=== PATIENT | male | born 1970 | race Caucasian/White ===

== ENCOUNTER 2022-01-06 22:53 | Inpatient (IN) | payer OTHER ==
--- NOTE | 2022-01-06 23:30 | ED ---
SOB HPI - General Chief Complaint: Shortness of Breath Stated Complaint: SOFÍA Time Seen by Provider: 01/06/22 22:59 Source: patient, EMS Mode of arrival: EMS - History of Present Illness Initial Comments: Patient is a 51-year-old male who presents as a transfer from [facility]. He was transferred for shortness of breath. Patient is paraplegic and currently on meropenem for a right hip wound. He had a skin flap performed to the left hip at [facility] one month ago. He developed a DVT postop and is now on Eliquis. He had a midline which he pulled out 2 days ago. He went into [facility] to have it replaced. Family reported that the patient has developed a cough starting yesterday and 2 hours prior to hospital arrival he was extremely short of breath. Family placed him on his CPAP which didn't help. EMS found the patient saturing 80% and he was placed on Bipap. He went into [facility] and had full evaluation. He was found to be Covid positive. CT of the chest was performed which was negative for PE however there were bilateral groundglass opacities. Patient does not wear oxygen at baseline but wears CPAP at night. He was able to be titrated down to and OptiFlow. Patient presents from [facility] without signs of respiratory distress on a nonrebreather saturating 97%. He denies any chest pain. Does admit to cough. Patient was given Decadron 6 mg, doxycycline and his meropenem. He denies fevers, chills, headache, neck pain, nausea, vomiting. No other alleviating, precipitating or modifying factors - Related Data Home Medications Medication Instructions Recorded Confirmed Alendronate Sodium 70 mg PO SA 01/07/22 01/07/22 Apixaban [Eliquis] 5 mg PO BID 01/07/22 01/07/22 Ascorbic Acid [Vitamin C] 250 mg PO DAILY 01/07/22 01/07/22 Atorvastatin [Lipitor] 80 mg PO HS 01/07/22 01/07/22 Baclofen 10 - 20 mg PO QID PRN 01/07/22 01/07/22 Cholecalciferol (Vitamin D3) 125 mcg PO DAILY 01/07/22 01/07/22 [Vitamin D3 (125 MCG = 5,000 IU)] Co Q-10 30mg 1 cap PO DAILY 01/07/22 01/07/22 Docusate [Colace] 100 mg PO BID 01/07/22 01/07/22 Ferrous Sulfate [Feosol] 325 mg PO DAILY 01/07/22 01/07/22 Fluconazole [Diflucan] 200 mg PO DAILY 01/07/22 01/07/22 Gabapentin 600 mg PO TID 01/07/22 01/07/22 Insulin Glargine,Hum.rec.anlog 8 units SQ HS 01/07/22 01/07/22 [Lantus Solostar Pen] Meloxicam [Mobic] 15 mg PO DAILY 01/07/22 01/07/22 Meropenem [Merrem] 1 gm IV TID 01/07/22 01/07/22 Metaxalone [Skelaxin] 400 mg PO BID 01/07/22 01/07/22 Multivitamins, Thera [Multivitamin 1 tab PO DAILY 01/07/22 01/07/22 (formulary)] Pantoprazole [Protonix] 40 mg PO BID 01/07/22 01/07/22 Potassium Chloride Oral Liquid 10 meq PO DAILY 01/07/22 01/07/22 Prucalopride Succinate [Motegrity] 2 mg PO DAILY 01/07/22 01/07/22 Pyridoxine HCl (Vitamin B6) 100 mg PO DAILY 01/07/22 01/07/22 [Vitamin B-6] Sennosides [Senokot] 8.6 mg PO 5XD 01/07/22 01/07/22 Solifenacin Succinate [Vesicare] 10 mg PO DAILY 01/07/22 01/07/22 amantadine HCL [Amantadine] 100 mg PO BID 01/07/22 01/07/22 lamoTRIgine [LaMICtal] 150 mg PO DAILY 01/07/22 01/07/22 modafiniL [Provigil] 200 mg PO BID 01/07/22 01/07/22 polyethylene glycoL 3350 [Miralax] 17 gm PO BID 01/07/22 01/07/22 tiZANidine [Zanaflex] 4 mg PO BID 01/07/22 01/07/22 Previous Rx's Medication Instructions Recorded methylPREDNISolone Dose Pack 4 mg PO DIRECTED #21 tab 01/11/22 [Medrol Dose Pack] Allergies Allergy/AdvReac Type Severity Reaction Status Date / Time clindamycin Allergy Unknown Verified 01/07/22 08:23 daptomycin Allergy Unknown Verified 01/07/22 08:23 hydrochlorothiazide Allergy Unknown Verified 01/07/22 08:23 latex Allergy Unknown Verified 01/07/22 08:23 levofloxacin [From Levaquin] Allergy Unknown Verified 01/07/22 08:23 metformin Allergy Unknown Verified 01/07/22 08:23 Penicillins Allergy Unknown Verified 01/07/22 08:23 pioglitazone [From Actos] Allergy Unknown Verified 01/07/22 08:23 tizanidine [From Zanaflex] Allergy Unknown Verified 01/07/22 08:23 tobramycin Allergy Unknown Verified 01/07/22 08:23 vancomycin Allergy Unknown Verified 01/07/22 08:23 Review of Systems ROS Statement: Those systems with pertinent positive or pertinent negative responses have been documented in the HPI. ROS Other: All systems not noted in ROS Statement are negative. Past Medical History History of Any Multi-Drug Resistant Organisms: ESBL Date of last positivie culture/infection: 05/17/19 MDRO Source:: CATH URINE - Past Family History Mother Family Medical History: Coronary Artery Disease (CAD), Diabetes Mellitus, Hypertension Additional Family Medical History / Comment(s): Rheumatic fever Father Family Medical History: Coronary Artery Disease (CAD) family Family Medical History: Unable to Obtain General Exam Limitations: physical limitation General appearance: alert, in no apparent distress Head exam: Present: other (well healed scar on top of head) Eye exam: Present: other (blind right eye) ENT exam: Present: mucous membranes dry Respiratory exam: Present: rales, accessory muscle use Cardiovascular Exam: Present: normal rhythm, tachycardia Neurological exam: Present: alert, CN II-XII intact, other (contractures bilateral lower extremities) Psychiatric exam: Present: flat affect Skin exam: Present: warm, dry, intact, normal color. Absent: rash Course Vital Signs 01/06/22 01/07/22 01/07/22 22:55 01:24 01:45 Temperature 98.9 F Pulse Rate 109 H 107 H Pulse Rate [ Fertilizer Processing Supervisor ] Respiratory 22 26 H Rate Blood Pressure 140/96 137/83 Blood Pressure [Right Arm] O2 Sat by Pulse 98 94 L Oximetry Fraction of 60 Inspired Oxygen (FIO2) 01/07/22 01/07/22 01/07/22 01:55 02:13 02:47 Temperature Pulse Rate Pulse Rate [ 101 H Fertilizer Processing Supervisor ] Respiratory 20 Rate Blood Pressure Blood Pressure 135/78 [Right Arm] O2 Sat by Pulse 96 Oximetry Fraction of 50 50 50 Inspired Oxygen (FIO2) 01/07/22 01/07/22 01/07/22 04:35 07:01 07:21 Temperature Pulse Rate 101 H 101 H 101 H Pulse Rate [ Fertilizer Processing Supervisor ] Respiratory 20 22 18 Rate Blood Pressure 148/86 151/91 Blood Pressure [Right Arm] O2 Sat by Pulse 97 97 97 Oximetry Fraction of Inspired Oxygen (FIO2) 01/07/22 01/07/22 01/07/22 07:35 08:09 10:00 Temperature Pulse Rate 101 H 99 Pulse Rate [ Fertilizer Processing Supervisor ] Respiratory 20 16 Rate Blood Pressure 152/89 153/95 Blood Pressure [Right Arm] O2 Sat by Pulse 97 99 Oximetry Fraction of 50 Inspired Oxygen (FIO2) 01/07/22 01/07/22 01/07/22 11:22 11:23 12:34 Temperature Pulse Rate 96 99 Pulse Rate [ Fertilizer Processing Supervisor ] Respiratory 20 18 Rate Blood Pressure 151/90 Blood Pressure [Right Arm] O2 Sat by Pulse 97 99 Oximetry Fraction of 50 Inspired Oxygen (FIO2) 01/07/22 01/07/22 01/07/22 13:29 15:09 16:14 Temperature Pulse Rate 100 97 Pulse Rate [ Fertilizer Processing Supervisor ] Respiratory 18 18 Rate Blood Pressure 154/95 155/89 Blood Pressure [Right Arm] O2 Sat by Pulse 99 100 100 Oximetry Fraction of Inspired Oxygen (FIO2) 01/07/22 01/07/22 01/07/22 16:44 17:03 18:31 Temperature Pulse Rate 96 95 93 Pulse Rate [ Fertilizer Processing Supervisor ] Respiratory 20 21 16 Rate Blood Pressure 138/85 156/86 152/82 Blood Pressure [Right Arm] O2 Sat by Pulse 98 100 100 Oximetry Fraction of Inspired Oxygen (FIO2) Medical Decision Making - Medical Decision Making Upon arrival patient was placed into room 5. The history was obtained. I did review the patient's transfer packet. CT of the patient's chest demonstrated bilateral lung opacities compatible with multifocal pneumonia. Distal esophageal wall thickening with debris. Small right lung nodule. Compression deformity of T12 and L1 laboratory studies reveal white count of 16.2. Patient placed on 10 L high flow. Will be admitted to [facility] emergency department physicians. - Lab Data Result diagrams: 01/11/22 06:14 01/11/22 06:14 Disposition Clinical Impression: Bilateral pneumonia, COVID-19, Hypoxia, Paraplegia, Leukocytosis Disposition: ADMITTED IP TO THIS HOSP Condition: Stable Is patient prescribed a controlled substance at d/c from ED?: No Time of Disposition: 23:39 Decision to Admit Reason: Admit from EC Decision Date: 01/06/22 Decision Time: 23:39
[2022-01-06] MEDS ORDERED: IBUPROFEN 400 MG TAB PO PRN (23:39)
[2022-01-06] MEDS ORDERED: NALOXONE 0.4 MG/ML 1 ML VIAL IV PRN (23:39)
[2022-01-06] MEDS ORDERED: ACETAMINOPHEN TAB 325 MG TAB PO PRN (23:39)
[2022-01-07] MEDS: MEROPENEM 1 GM in SODIUM CHLORIDE 0.9% 100 ML IVPB SCH ×3 (01:24→17:52)
--- NOTE | 2022-01-07 05:03 | P.HPIM ---
History of Present Illness H&P Date: 01/07/22 Chief Complaint: difficulty breathing 51 year old male with developmental delays, TBI patient comes as a transfer from [facility] , where he presented for SOB, patient unable to provide any meaningful history , which was obtained by reviewing transfer papers . reportedly , He started having a cough over the past day or two , along with progressive SOB, he was initially put on CPAP at home with some improvement , and did a home COVID test which turned out to be positive. next day he was doing worse, with increase SOB and work of breathing , for which he was taken to the hospital for evaluation .EMS found that his oxygen sat was in the 80s% range, patient then was placed on high flow then bipap in the ED to improve oxygenation. workup in the other facility CTA of the chest showed bilateral opacities , and small right lung nodule , moderate compression fracture T12, L1. no PE of note, patient was at hospital 2 days prior to replace his PICC line, which he is receiving antibiotics for left hip skin flap that was done at [facility] about a month ago . he is also being treated for DVT that developed post op during that time, and currently on eliquis no report of fever, chills, seizure, nausea , vomiting, patient himself denies any pain Review of Systems unable to obtain due to developmental delay Past Medical History Past Medical History: CVA/TIA, Diabetes Mellitus, GERD/Reflux, Hyperlipidemia History of Any Multi-Drug Resistant Organisms: ESBL Date of last positivie culture/infection: 05/17/19 MDRO Source:: CATH URINE Past Psychological History: Depression - Past Family History family Family Medical History: Unable to Obtain Medications and Allergies Allergies Allergy/AdvReac Type Severity Reaction Status Date / Time clindamycin Allergy Unknown Verified 01/06/22 23:48 daptomycin Allergy Unknown Verified 01/06/22 23:48 hydrochlorothiazide Allergy Unknown Verified 01/06/22 23:48 latex Allergy Unknown Verified 01/06/22 23:48 levofloxacin [From Levaquin] Allergy Unknown Verified 01/06/22 23:48 metformin Allergy Unknown Verified 01/06/22 23:48 Penicillins Allergy Unknown Verified 01/06/22 23:48 pioglitazone [From Actos] Allergy Unknown Verified 01/06/22 23:48 tizanidine [From Zanaflex] Allergy Unknown Verified 01/06/22 23:48 tobramycin Allergy Unknown Verified 01/06/22 23:48 vancomycin Allergy Unknown Verified 01/06/22 23:48 Physical Exam Vitals: Vital Signs Temp Pulse Pulse Resp BP BP Pulse Ox 01/07/22 02:47 101 H 20 135/78 96 01/07/22 02:13 01/07/22 01:55 01/07/22 01:45 01/07/22 01:24 107 H 26 H 137/83 94 L 01/06/22 22:55 98.9 F 109 H 22 140/96 98 FiO2 01/07/22 02:47 50 01/07/22 02:13 50 01/07/22 01:55 50 01/07/22 01:45 60 01/07/22 01:24 01/06/22 22:55 Intake and Output 01/06/22 01/06/22 01/07/22 14:59 22:59 06:59 Other: Weight 68.039 kg Constitutional: No acute distress, on bipap Eyes: Anicteric sclerae, moist conjunctiva, 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 ENMT: NC/AT Oropharynx clear, no erythema, or exudates Neck: Supple, no masses, or JVD No carotid bruits No thyromegaly Lungs: Clear to auscultation Clear to percussion Normal respiratory effort, no accessory muscle use Cardiovascular: Heart regular in rate and rhythm, No murmurs, gallops, or rubs trace peripheral edema Abdominal: Soft Nontender, no guarding, rebound or rigidity Abdomen moving with respiration Normoactive bowel sounds No hepatomegaly, No splenomegaly No palpable mass No abdominal wall hernia noted Skin: Normal temperature, tone, texture, turgor Extremities: No digital cyanosis Pedal pulses intact and symmetrical Radial pulses intact and symmetrical No calf tenderness Psychiatric: Alert and oriented to person, place Neuro Muscles Strength 4/5 in bilateral upper extremity , flaccid paralysis over bilateral lower extremities Sensation to light touch grossly present throughout Cranial nerves II-XII grossly intact Lymphatics: no palpable cervical or supraclavicular lymph nodes Assessment and Plan Assessment: acute hypoxic respiratory failure acute covid pneumonia supportive care supplemental oxygen , Bipap as needed Dexamethasone 6mg daily check labs for prognostic eval , Ferritin , d dimer, LDH, CRP, trops , PT/INR, procalcitonin pulmonary consult continue with ELiquis which he is receiving for subacute diagnosis of DVT a month ago inhalers as needed tylenol for fever chronic conditions TBI developmental delay full code DVT PPX on eliquis
[2022-01-07] MEDS: ALBUTEROL HFA INHALER INHALATION PRN ×4 (07:42→19:28)
[2022-01-07] MEDS: APIXABAN 5 MG TAB PO SCH ×2 (08:18→20:59)
[2022-01-07] MEDS: DEXAMETHASONE SOD PHOSPHATE 10 MG/ML 1 ML VIAL IVP SCH (08:47)
[2022-01-07 11:01] LABS: Anisocytosis Moderate; Basophils % (A) 0 %; Eosinophils # (A) 0.1 k/uL (0-0.7); Eosinophils % (A) 1 %; HCT 31.5 % (39.0-53.0); HGB 9.6 gm/dL (13.0-17.5); Hypochromasia Marked; Lymphocytes # (A) 0.3 k/uL (1.0-4.8); Lymphocytes % (A) 3 %; MCH 24.3 pg (25.0-35.0); MCHC 30.4 g/dL (31.0-37.0); MCV 80.2 fL (80.0-100.0); Mean Platelet Volume 7.8; Microcytosis Slight; Monocytes # (A) 0.2 k/uL (0-1.0); Monocytes % (A) 1 %; Neutrophils # (A) 10.9 k/uL (1.3-7.7); Neutrophils % (A) 94 %; Platelet Count 258 k/uL (150-450); Poikilocytosis Slight; RBC 3.92 m/uL (4.30-5.90); RDW 21.2 % (11.5-15.5); WBC 11.6 k/uL (3.8-10.6)
[2022-01-07 11:16] LABS: African American GFR (CKD) >90 (>60 ml/min/1.73 sqM); Anion Gap 13 mmol/L; Blood Urea Nitrogen 14 mg/dL (9-20); Calcium 8.7 mg/dL (8.4-10.2); Carbon Dioxide 23 mmol/L (22-30); Chloride 110 mmol/L (98-107); Glucose 159 mg/dL (74-99); Non-African American GFR(CKD) >90 (>60 ml/min/1.73 sqM); Potassium 4.3 mmol/L (3.5-5.1); Sodium 146 mmol/L (137-145)
--- NOTE | 2022-01-07 12:05 | P.PN ---
Progress Note - Text Progress Note Date: 01/07/22 Hospitalist Interval Note Patient seen and examined at bedside. Vital signs reviewed General: non toxic, no distress, appears at stated age, on BiPAP Derm: warm, dry Head: atraumatic, normocephalic, symmetric Eyes: EOMI, no lid lag, anicteric sclera Mouth: no lip lesion, mucus membranes moist Cardiovascular: S1S2 reg, no murmur, positive posterior tibial pulse bilateral, Lungs: Bilateral rhonchi, on BiPAP Abdominal: soft, nontender to palpation, no guarding, no appreciable organomegaly Ext: no gross muscle atrophy, no edema, no contractures, flaccid paralysis of left lower extremity, has 2 drains on the left side Neuro: CN II-XI grossly intact, no focal neuro deficits Psych: Alert, oriented, appropriate affect Assessment/Plan: Acute hypoxic respiratory failure Acute COVID-19 pneumonia History of TBI History of developmental delay -On supplemental oxygen, BiPAP as needed -Steroids -On Eliquis for recent provoked DVT -Pulmonology consult Recent infected left hip skin flap, requiring meropenem This is an update note for patient , for full note on 01/07/22 at 3:35. There is no charge associated with this note.
--- NOTE | 2022-01-07 12:06 | XR ---
EXAMINATION TYPE: XR chest 1V portable DATE OF EXAM: 01/07/2022 CLINICAL HISTORY: Difficulty breathing progress study. COVID Pneumonia. TECHNIQUE: Single AP portable frontal view of the chest is obtained. COMPARISON: Outside Chest x-ray and CTA chest from one day earlier FINDINGS: Multifocal areas of increased opacity on recent CT less well seen on x-ray. Left basilar o pacity is more prominent. Cardiac silhouette size stable and upper limits of normal. Displaced old fr acture distal right clavicle redemonstrated. IMPRESSION: Worsening left basilar acute infiltrate and/or atelectasis
[2022-01-07] MEDS ORDERED: REMDESIVIR 200 MG in SODIUM CHLORIDE 0.9% 250 ML IVPB ONE (15:00)
--- NOTE | 2022-01-07 16:01 | P.CNPUL ---
History of Present Illness Consult date: 01/07/22 Requesting physician: Melody Bal Reason for consult: dyspnea Chief complaint: Shortness of breath, CoVID infection History of present illness: This is a 51-year-old male patient with a history of CVA/TIA, diabetes mellitus, hyperlipidemia, depression, History of traumatic brain injury, paraplegia, developmental delay, recent DVT currently on Eliquis. He had developed increasing shortness of breath, cough and congestion and was seen at [facility] and found to have COVID-19 pneumonia and transferred here for the same. Outside CAT scan had revealed bilateral opacities and a small right lung nodule. The patient had previously been hospitalized to have a PICC line replaced. He's been receiving antibiotics for a left hip skin flap performed at [facility] a month ago. Following that is when he developed the DVT. If he is seen today in the emergency department. He is currently sitting up in bed. Awake and alert. He is currently on 10 L high flow nasal cannula with O2 saturations to 99 and 100%. This x-ray reveals a left basilar acute infiltrate/atelectasis. White count 11.6. Hemoglobin 9.6. Sodium 146. Potassium 4.3. BUN 14. Creatinine 0.42. Glucose 159. He's been initiated on Decadron. Continued on meropenem. Review of Systems REVIEW OF SYSTEMS: CONSTITUTIONAL: Denies any recent significant weight loss or weight gain. EYES: Denies change in vision. EARS, NOSE, MOUTH, THROAT: Denies headaches, denies sore throat. CARDIOVASCULAR: Denies chest pain, palpitations or syncopal episodes. RESPIRATORY: Positive for shortness of breath, cough, congestion no hemoptysis. GASTROINTESTINAL: Denies change in appetite, denies abdominal pain GENITOURINARY: Denies hematuria, denies infections. MUSKULOSKELETAL: Recent left hip flap with drainage Denies pain, denies swelling. INTEGUMENTARY: Denies rash, denies eczema. NEUROLOGICAL: Denies recent memory loss, no recent seizure activity. PSYCHIATRIC: Denies anxiety, denies depression. HEMATOLOGIC/LYMPHATIC: Denies anemia, denies enlarged lymph nodes. Past Medical History Past Medical History: CVA/TIA, Diabetes Mellitus, Deep Vein Thrombosis (DVT), Eye Disorder, GERD/Reflux, Hearing Disorder / Deafness, Hyperlipidemia, Seizure Disorder, Sleep Apnea/CPAP/BIPAP Additional Past Medical History / Comment(s): Mentally challenged/poor decision making per pt's LG, last seizure (sister states d/t a reaction to an antibiotic) about 20 yrs ago, 1997 pt hit a horse and suffered TBI which caused paraplegi a/blindness and loss hearing in R ear, bilateral hip wounds sister states caused by rubbing in wheelchair, L hip osteomyelitis/L hip joint removed, recent skin flap to L hip wound at [facility] then had a critical event per sister/blood clot and shadow found in one lower lung/was transfered to ICU, mentation change/unable to eat/chokes since last hospitalization at [facility], IDC/colostomy for diversion, contipation, IDDM, recent issues with hypoglycemia, SUSAN with cpap, UTI, spinal cord cysts, compression fractures in spine, anemia. History of Any Multi-Drug Resistant Organisms: ESBL Date of last positivie culture/infection: 05/17/19 MDRO Source:: CATH URINE Past Surgical History: Orthopedic Surgery Additional Past Surgical History / Comment(s): L hip skin flap, L hip joint removed, titanium plate in forehead, surgery for undescended testicle, colonoscopy. Past Anesthesia/Blood Transfusion Reactions: No Reported Reaction Additional Past Anesthesia/Blood Transfusion Reaction / Comment(s): Pt has received blood in past without reaction. Smoking Status: Never smoker - Past Family History Mother Family Medical History: Coronary Artery Disease (CAD), Diabetes Mellitus, Hypertension Additional Family Medical History / Comment(s): Rheumatic fever Father Family Medical History: Coronary Artery Disease (CAD) family Family Medical History: Unable to Obtain Medications and Allergies Home Medications Medication Instructions Recorded Confirmed Type Alendronate Sodium 70 mg PO SA 01/07/22 01/07/22 History Apixaban [Eliquis] 5 mg PO BID 01/07/22 01/07/22 History Ascorbic Acid [Vitamin C] 250 mg PO DAILY 01/07/22 01/07/22 History Atorvastatin [Lipitor] 80 mg PO HS 01/07/22 01/07/22 History Baclofen 10 - 20 mg PO QID PRN 01/07/22 01/07/22 History Cholecalciferol (Vitamin D3) 125 mcg PO DAILY 01/07/22 01/07/22 History [Vitamin D3 (125 MCG = 5,000 IU)] Co Q-10 30mg 1 cap PO DAILY 01/07/22 01/07/22 History Docusate [Colace] 100 mg PO BID 01/07/22 01/07/22 History Ferrous Sulfate [Feosol] 325 mg PO DAILY 01/07/22 01/07/22 History Fluconazole [Diflucan] 200 mg PO DAILY 01/07/22 01/07/22 History Gabapentin 600 mg PO TID 01/07/22 01/07/22 History Insulin Glargine,Hum.rec.anlog 8 units SQ HS 01/07/22 01/07/22 History [Lantus Solostar Pen] Meloxicam [Mobic] 15 mg PO DAILY 01/07/22 01/07/22 History Meropenem [Merrem] 1 gm IV TID 01/07/22 01/07/22 History Metaxalone [Skelaxin] 400 mg PO BID 01/07/22 01/07/22 History Multivitamins, Thera [Multivitamin 1 tab PO DAILY 01/07/22 01/07/22 History (formulary)] Pantoprazole [Protonix] 40 mg PO BID 01/07/22 01/07/22 History Potassium Chloride Oral Liquid 10 meq PO DAILY 01/07/22 01/07/22 History Prucalopride Succinate [Motegrity] 2 mg PO DAILY 01/07/22 01/07/22 History Pyridoxine HCl (Vitamin B6) 100 mg PO DAILY 01/07/22 01/07/22 History [Vitamin B-6] Sennosides [Senokot] 8.6 mg PO 5XD 01/07/22 01/07/22 History Solifenacin Succinate [Vesicare] 10 mg PO DAILY 01/07/22 01/07/22 History amantadine HCL [Amantadine] 100 mg PO BID 01/07/22 01/07/22 History lamoTRIgine [LaMICtal] 150 mg PO DAILY 01/07/22 01/07/22 History modafiniL [Provigil] 200 mg PO BID 01/07/22 01/07/22 History polyethylene glycoL 3350 [Miralax] 17 gm PO BID 01/07/22 01/07/22 History tiZANidine [Zanaflex] 4 mg PO BID 01/07/22 01/07/22 History Allergies Allergy/AdvReac Type Severity Reaction Status Date / Time clindamycin Allergy Unknown Verified 01/07/22 08:23 daptomycin Allergy Unknown Verified 01/07/22 08:23 hydrochlorothiazide Allergy Unknown Verified 01/07/22 08:23 latex Allergy Unknown Verified 01/07/22 08:23 levofloxacin [From Levaquin] Allergy Unknown Verified 01/07/22 08:23 metformin Allergy Unknown Verified 01/07/22 08:23 Penicillins Allergy Unknown Verified 01/07/22 08:23 pioglitazone [From Actos] Allergy Unknown Verified 01/07/22 08:23 tizanidine [From Zanaflex] Allergy Unknown Verified 01/07/22 08:23 tobramycin Allergy Unknown Verified 01/07/22 08:23 vancomycin Allergy Unknown Verified 01/07/22 08:23 Physical Exam Vitals: Vital Signs Temp Pulse Pulse Resp BP BP Pulse Ox 01/07/22 15:09 97 18 155/89 100 01/07/22 13:29 100 18 154/95 99 01/07/22 12:34 99 18 99 01/07/22 11:23 01/07/22 11:22 96 20 151/90 97 01/07/22 10:00 99 16 153/95 99 01/07/22 08:09 101 H 20 152/89 97 01/07/22 07:35 01/07/22 07:21 101 H 18 97 01/07/22 07:01 101 H 22 151/91 97 01/07/22 04:35 101 H 20 148/86 97 01/07/22 02:47 101 H 20 135/78 96 01/07/22 02:13 01/07/22 01:55 01/07/22 01:45 01/07/22 01:24 107 H 26 H 137/83 94 L 01/06/22 22:55 98.9 F 109 H 22 140/96 98 FiO2 01/07/22 15:09 01/07/22 13:29 01/07/22 12:34 01/07/22 11:23 50 01/07/22 11:22 01/07/22 10:00 01/07/22 08:09 01/07/22 07:35 50 01/07/22 07:21 01/07/22 07:01 01/07/22 04:35 01/07/22 02:47 50 01/07/22 02:13 50 01/07/22 01:55 50 01/07/22 01:45 60 01/07/22 01:24 01/06/22 22:55 Intake and Output 01/07/22 01/07/22 01/07/22 06:59 14:59 22:59 Other: Weight 68.039 kg GENERAL EXAM: Alert, 51-year-old male patient, on 10 L high flow nasal cannula with O2 saturation of 100% comfortable in no apparent distress. HEAD: Signs of previous trauma. Normocephalic. EYES: Normal reaction of pupils, equal size. NOSE: Clear with pink turbinates. THROAT: No erythema or exudates. NECK: No masses, no JVD. CHEST: No chest wall deformity. LUNGS: Equal air entry with crackles in the left lung base. CVS: S1 and S2 normal with no audible murmur, regular rhythm. ABDOMEN: No hepatosplenomegaly, normal bowel sounds, no guarding or rigidity. SPINE: No scoliosis or deformity SKIN: Recent left hip flat with drains in place CENTRAL NERVOUS SYSTEM: No focal deficits, tone is normal in all 4 extremities. EXTREMITIES: Contracture lower extremities. Paraplegia. There is no peripheral edema. No clubbing, no cyanosis. Peripheral pulses are intact. Results - Laboratory Findings CBC and BMP: 01/07/22 10:48 01/07/22 10:48 Abnormal lab findings: Abnormal Labs 01/07/22 01/07/22 10:48 10:48 WBC 11.6 H RBC 3.92 L Hgb 9.6 L Hct 31.5 L MCH 24.3 L MCHC 30.4 L RDW 21.2 H Neutrophils # 10.9 H Lymphocytes # 0.3 L Sodium 146 H Chloride 110 H Creatinine 0.42 L Glucose 159 H - Diagnostic Findings Chest x-ray: image reviewed Assessment and Plan Assessment: Acute hypoxemic respiratory failure secondary to COVID-19 pneumonia. Initiated on Remdesivir today 01/07/2022. Currently on 10 L high flow nasal cannula. States he is vaccinated. Outside computed tomography scan reported bilateral lung opacities compared with multifocal pneumonia. History of previous traumatic brain injury and paraplegia Recent surgery to the left hip including a flap at the [facility] approximately one month ago and currently on meropenem [address] Postprocedure DVT, currently on Eliquis History of developmental delay Poor historian Plan: The patient was seen and evaluated Chest x-ray, labs and medications reviewed Initiate Remdesivir Titrate the FiO2 as tolerated Continued on Eliquis for anticoagulation Continue on Decadron Continue meropenem We will continue to follow and make further recommendations based on his clinical status I have personally seen and examined the patient, performed the documentation and the assessment and plan as written. Number of minutes spent on the visit: 20.
[2022-01-07 19:06] LABS: Glucose,Whole Blood 168 mg/dL (70-110)
[2022-01-08] MEDS: MEROPENEM 1 GM in SODIUM CHLORIDE 0.9% 100 ML IVPB SCH ×4 (00:32→23:30)
[2022-01-08] MEDS ORDERED: hydrALAZINE HCL 10 MG TAB PO PRN (01:31)
[2022-01-08 05:59] LABS: Glucose,Whole Blood 121 mg/dL (70-110)
[2022-01-08] MEDS: ALBUTEROL HFA INHALER INHALATION PRN ×3 (07:29→16:15)
[2022-01-08 09:01] LABS: INR 1.1 (<1.2); Prothrombin Time 11.2 sec (9.0-12.0)
[2022-01-08 09:22] LABS: Anisocytosis Moderate; Basophils % (A) 0 %; Eosinophils % (A) 0 %; HCT 34.4 % (39.0-53.0); HGB 9.9 gm/dL (13.0-17.5); Hypochromasia Marked; Lymphocytes % (A) 6 %; MCH 23.8 pg (25.0-35.0); MCHC 28.7 g/dL (31.0-37.0); MCV 82.8 fL (80.0-100.0); Mean Platelet Volume 8.2; Microcytosis Slight; Monocytes # (A) 0.8 k/uL (0-1.0); Monocytes % (A) 5 %; Neutrophils # (A) 13.8 k/uL (1.3-7.7); Neutrophils % (A) 87 %; Platelet Count 253 k/uL (150-450); Poikilocytosis Slight; RBC 4.16 m/uL (4.30-5.90); RDW 21.8 % (11.5-15.5); WBC 15.9 k/uL (3.8-10.6)
[2022-01-08] MEDS: APIXABAN 5 MG TAB PO SCH ×2 (09:29→21:33)
[2022-01-08] MEDS: DEXAMETHASONE SOD PHOSPHATE 10 MG/ML 1 ML VIAL IVP SCH (09:29)
[2022-01-08 10:00] LABS: ALT 21 U/L (4-49); AST 32 U/L (17-59); African American GFR (CKD) >90 (>60 ml/min/1.73 sqM); Albumin 3.6 g/dL (3.5-5.0); Alkaline Phosphatase 217 U/L (38-126); Anion Gap 14 mmol/L; Blood Urea Nitrogen 18 mg/dL (9-20); C Reactive Protein 4.1 mg/dL (<1.0); Calcium 8.9 mg/dL (8.4-10.2); Carbon Dioxide 25 mmol/L (22-30); Chloride 109 mmol/L (98-107); Glucose 112 mg/dL (74-99); LDH 600 U/L (313-618); Magnesium 1.7 mg/dL (1.6-2.3); Non-African American GFR(CKD) >90 (>60 ml/min/1.73 sqM); Potassium 3.9 mmol/L (3.5-5.1); Sodium 148 mmol/L (137-145); Total Bilirubin 0.4 mg/dL (0.2-1.3); Total Protein 6.5 g/dL (6.3-8.2)
[2022-01-08 11:33] LABS: Glucose,Whole Blood 140 mg/dL (70-110)
--- NOTE | 2022-01-08 14:00 | P.PN ---
Subjective Progress Note Date: 01/08/22 Principal diagnosis: acute hypoxic respiratory failure secondary to COVID-19 pneumonia This is a 51-year-old male patient with a history of CVA/TIA, diabetes mellitus, hyperlipidemia, depression, History of traumatic brain injury, paraplegia, developmental delay, recent DVT currently on Eliquis. He had developed increasing shortness of breath, cough and congestion and was seen at [facility] and found to have COVID-19 pneumonia and transferred here for the same. Outside CAT scan had revealed bilateral opacities and a small right lung nodule. The patient had previously been hospitalized to have a PICC line replaced. He's been receiving antibiotics for a left hip skin flap performed at [facility] a month ago. Following that is when he developed the DVT. If he is seen today in the emergency department. He is currently sitting up in bed. Awake and alert. He is currently on 10 L high flow nasal cannula with O2 saturations to 99 and 100%. This x-ray reveals a left basilar acute infiltrate/atelectasis. White count 11.6. Hemoglobin 9.6. Sodium 146. Potassium 4.3. BUN 14. Creatinine 0.42. Glucose 159. He's been initiated on Decadron. Continued on meropenem. Reevaluated today on 01/08/22, patient seems to be doing better today, breathing easier, remains on 6 L nasal cannula, patient is on Remdesivir, he is also maintained on Merrem for his previous hip infection.patient has leukocytosis with WBC of 15.6, hemoglobin is 9.9. D-dimer 0.81. Electrolytes are normal except for slightly elevated sodium. Renal profile is normal.again the patient is on 6 L nasal cannula, and his O2 sats is 95% Objective - Vital Signs Vital signs: Vital Signs Temp 97.8 F 01/08/22 12:04 Pulse 98 01/08/22 12:04 Resp 20 01/08/22 12:04 BP 140/82 01/08/22 12:04 Pulse Ox 95 01/08/22 12:04 FiO2 50 01/08/22 04:40 Intake & Output 01/07/22 01/08/22 01/08/22 18:59 06:59 18:59 Intake Total 350 Output Total 400 500 Balance -50 -500 Weight 68.039 kg 68.039 kg Intake: Intake, IV Titration 350 Amount Meropenem 1 gm In Sodium 100 Chloride 0.9% 100 ml @ 33 .3 mls/hr IVPB Q8HR [facility] Rx#:[id number] Remdesivir 200 mg In 250 Sodium Chloride 0.9% 250 ml @ 250 mls/hr IVPB ONCE ONE Rx#:[id number] Output: Urine 200 500 Stool 200 Other: Voiding Method Incontinent Indwelling Catheter Indwelling Catheter - Exam GENERAL EXAM: 51-year-old white male, paraplegic, on 6 L nasal cannula, in no distress. HEAD: Signs of previous trauma. Normocephalic. ENT: PERRLA, PR, anicteric, no neck masses, no JVD, no stridor. CHEST: No chest wall deformity. LUNGS: fine crackles at the bases bilaterally. CVS: S1 and S2 normal with no audible murmur, regular rhythm. ABDOMEN: No hepatosplenomegaly, normal bowel sounds, no guarding or rigidity. SPINE: No scoliosis or deformity SKIN: Recent left hip flat with drains in place CENTRAL NERVOUS SYSTEM: No focal deficits, tone is normal in all 4 extremities. EXTREMITIES: Contracture lower extremities. Paraplegia. There is no peripheral edema. No clubbing, no cyanosis. Peripheral pulses are intact. - Labs CBC & Chem 7: 01/08/22 07:57 01/08/22 07:57 Labs: Abnormal Lab Results - Last 24 Hours (Table) 01/07/22 01/08/22 01/08/22 Range/Units 19:04 05:58 07:57 WBC 15.9 H (3.8-10.6) k/uL RBC 4.16 L (4.30-5.90) m/uL Hgb 9.9 L (13.0-17.5) gm/dL Hct 34.4 L (39.0-53.0) % MCH 23.8 L (25.0-35.0) pg MCHC 28.7 L (31.0-37.0) g/dL RDW 21.8 H (11.5-15.5) % Neutrophils # 13.8 H (1.3-7.7) k/uL Fibrinogen (200-500) mg/dL D-Dimer (<0.60) mg/L FEU Sodium (137-145) mmol/L Chloride (98-107) mmol/L Creatinine (0.66-1.25) mg/dL Glucose (74-99) mg/dL POC Glucose (mg/dL) 168 H 121 H (70-110) mg/dL Alkaline Phosphatase (38-126) U/L C-Reactive Protein (<1.0) mg/dL 01/08/22 01/08/22 01/08/22 Range/Units 07:57 07:57 11:32 WBC (3.8-10.6) k/uL RBC (4.30-5.90) m/uL Hgb (13.0-17.5) gm/dL Hct (39.0-53.0) % MCH (25.0-35.0) pg MCHC (31.0-37.0) g/dL RDW (11.5-15.5) % Neutrophils # (1.3-7.7) k/uL Fibrinogen 644 H (200-500) mg/dL D-Dimer 0.81 H (<0.60) mg/L FEU Sodium 148 H (137-145) mmol/L Chloride 109 H (98-107) mmol/L Creatinine 0.41 L (0.66-1.25) mg/dL Glucose 112 H (74-99) mg/dL POC Glucose (mg/dL) 140 H (70-110) mg/dL Alkaline Phosphatase 217 H (38-126) U/L C-Reactive Protein 4.1 H (<1.0) mg/dL Assessment and Plan Assessment: Acute hypoxemic respiratory failure secondary to COVID-19 pneumonia. Initiated on Remdesivir today 01/07/2022. History of previous traumatic brain injury and paraplegiaRecent surgery to the left hip including a flap at the [facility] approximately one month ago and currently on meropenem [address] Postprocedure DVT, currently on Eliquis History of developmental delay recommendation: Continue oxygen and titrate accordingly Continue Remdesivir ContinueEliquis for anticoagulation eliquis Continue Decadron continue Merrem we will continue to follow Time with Patient: Less than 30
--- NOTE | 2022-01-08 14:19 | P.PN ---
Subjective Progress Note Date: 01/08/22 Principal diagnosis: SOB Hospital Course: 51-year-old male with history of CVA/TIA, intellectual disability, TBI, diabetes, dyslipidemia, depression, recent DVT provoked on Eliquis presenting with shortness of breath. Currently being treated for hypoxic respiratory failure secondary to COVID-19 pneumonia. Patient was recently hospitalized for left hip skin flap, infected, on meropenem. During that hospitalization he developed a DVT, now on Eliquis. Currently on Decadron and Remdesivir. Subjective: Patient seen and examined at bedside. No acute events overnight. He claims that his shortness of breath is still present. He denies any chest pain, abdominal pain, nausea, vomiting, diarrhea, or constipation. He has a [place] cath in place. Pertinent positives and negatives as discussed above, a complete review of systems was performed and all other systems are negative. Vitals Signs Reviewed. General: non toxic, no distress, appears at stated age Derm: warm, dry Head: atraumatic, normocephalic, symmetric Eyes: EOMI, no lid lag, anicteric sclera Mouth: no lip lesion, mucus membranes moist Cardiovascular: S1S2 reg, no murmur, positive posterior tibial pulse bilateral, Lungs: Bilateral rhonchi, on 6 L nasal cannula Abdominal: soft, nontender to palpation, no guarding, no appreciable organomegaly Ext: no gross muscle atrophy, no edema, no contractures, flaccid paralysis of left lower extremity, has 2 drains on the left side Neuro: CN II-XI grossly intact, no focal neuro deficits Psych: Alert, oriented, appropriate affect Assessment and Plan: Acute hypoxic respiratory failure Acute COVID-19 pneumonia -On supplemental oxygen, BiPAP as needed -Steroids -remdesivir -Pulmonology consult Recent provoked DVT - on eliquis Recent left hip skin flap surgery, infection -Continue meropenem Mild hypernatremia -Encourage oral intake Leukocytosis -Likely steroid-induced History of TBI History of developmental delay Dyslipidemia -Medications reviewed and reconciled DVT ppx: Eliquis Code status: Full code Anticipated discharge place: Home Anticipated discharge time: Pending clinical course Objective - Vital Signs Vital signs: Vital Signs Temp 97.8 F 01/08/22 12:04 Pulse 98 01/08/22 12:04 Resp 20 01/08/22 12:04 BP 140/82 01/08/22 12:04 Pulse Ox 95 01/08/22 12:04 FiO2 50 01/08/22 04:40 Intake & Output 01/07/22 01/08/22 01/08/22 18:59 06:59 18:59 Intake Total 350 Output Total 400 500 Balance -50 -500 Weight 68.039 kg 68.039 kg Intake: Intake, IV Titration 350 Amount Meropenem 1 gm In Sodium 100 Chloride 0.9% 100 ml @ 33 .3 mls/hr IVPB Q8HR [facility] Rx#:[id number] Remdesivir 200 mg In 250 Sodium Chloride 0.9% 250 ml @ 250 mls/hr IVPB ONCE ONE Rx#:[id number] Output: Urine 200 500 Stool 200 Other: Voiding Method Incontinent Indwelling Catheter Indwelling Catheter - Labs CBC & Chem 7: 01/08/22 07:57 01/08/22 07:57 Labs: Abnormal Lab Results - Last 24 Hours (Table) 01/07/22 01/08/22 01/08/22 Range/Units 19:04 05:58 07:57 WBC 15.9 H (3.8-10.6) k/uL RBC 4.16 L (4.30-5.90) m/uL Hgb 9.9 L (13.0-17.5) gm/dL Hct 34.4 L (39.0-53.0) % MCH 23.8 L (25.0-35.0) pg MCHC 28.7 L (31.0-37.0) g/dL RDW 21.8 H (11.5-15.5) % Neutrophils # 13.8 H (1.3-7.7) k/uL Fibrinogen (200-500) mg/dL D-Dimer (<0.60) mg/L FEU Sodium (137-145) mmol/L Chloride (98-107) mmol/L Creatinine (0.66-1.25) mg/dL Glucose (74-99) mg/dL POC Glucose (mg/dL) 168 H 121 H (70-110) mg/dL Alkaline Phosphatase (38-126) U/L C-Reactive Protein (<1.0) mg/dL 01/08/22 01/08/22 01/08/22 Range/Units 07:57 07:57 11:32 WBC (3.8-10.6) k/uL RBC (4.30-5.90) m/uL Hgb (13.0-17.5) gm/dL Hct (39.0-53.0) % MCH (25.0-35.0) pg MCHC (31.0-37.0) g/dL RDW (11.5-15.5) % Neutrophils # (1.3-7.7) k/uL Fibrinogen 644 H (200-500) mg/dL D-Dimer 0.81 H (<0.60) mg/L FEU Sodium 148 H (137-145) mmol/L Chloride 109 H (98-107) mmol/L Creatinine 0.41 L (0.66-1.25) mg/dL Glucose 112 H (74-99) mg/dL POC Glucose (mg/dL) 140 H (70-110) mg/dL Alkaline Phosphatase 217 H (38-126) U/L C-Reactive Protein 4.1 H (<1.0) mg/dL
[2022-01-08 15:03] LABS: Ferritin 76.3 ng/mL (22.0-322.0)
[2022-01-08] MEDS: ATORVASTATIN 80 MG TAB PO SCH (15:57)
[2022-01-08] MEDS: SENNOSIDES 8.6 MG TAB PO SCH ×3 (15:57→23:25)
[2022-01-08] MEDS: PANTOPRAZOLE 40 MG TABLET PO SCH (15:58)
[2022-01-08] MEDS: polyethylene glycoL 3350 17 GM POWD.PACK PO SCH (15:58)
[2022-01-08] MEDS ORDERED: REMDESIVIR 100 MG in SODIUM CHLORIDE 0.9% 250 ML IVPB SCH (16:00)
[2022-01-08] MEDS: GABAPENTIN 300 MG CAP PO SCH ×2 (16:01→21:33)
[2022-01-08] MEDS: lamoTRIgine 100 MG TAB PO SCH (16:14)
[2022-01-08 16:45] LABS: Glucose,Whole Blood 177 mg/dL (70-110)
[2022-01-08] MEDS: LACTATED RINGERS 1,000 ML IV SCH ×2 (18:15→23:30)
[2022-01-08 19:55] LABS: Glucose,Whole Blood 152 mg/dL (70-110)
[2022-01-08] MEDS: INSULIN DETEMIR (LEVEMIR) 100 UNIT/ML SYR SQ SCH (21:33)
[2022-01-08] MEDS: REMDESIVIR 100 MG in SODIUM CHLORIDE 0.9% 250 ML IVPB SCH (21:33)
[2022-01-09] MEDS: SENNOSIDES 8.6 MG TAB PO SCH ×4 (04:04→19:57)
[2022-01-09 05:52] LABS: Glucose,Whole Blood 86 mg/dL (70-110)
[2022-01-09] MEDS: LACTATED RINGERS 1,000 ML IV SCH ×2 (06:10→15:58)
[2022-01-09 08:57] LABS: Anisocytosis Moderate; Basophils % (A) 0 %; Eosinophils % (A) 0 %; HCT 31.3 % (39.0-53.0); HGB 9.2 gm/dL (13.0-17.5); Hypochromasia Marked; Lymphocytes # (A) 0.9 k/uL (1.0-4.8); Lymphocytes % (A) 11 %; MCH 23.7 pg (25.0-35.0); MCHC 29.5 g/dL (31.0-37.0); MCV 80.3 fL (80.0-100.0); Mean Platelet Volume 8.1; Microcytosis Slight; Monocytes # (A) 0.3 k/uL (0-1.0); Monocytes % (A) 4 %; Neutrophils # (A) 7.3 k/uL (1.3-7.7); Neutrophils % (A) 83 %; Platelet Count 238 k/uL (150-450); Poikilocytosis Slight; RDW 22.1 % (11.5-15.5); WBC 8.7 k/uL (3.8-10.6)
[2022-01-09] MEDS ORDERED: lamoTRIgine 100 MG TAB PO SCH (09:00)
[2022-01-09] MEDS: APIXABAN 5 MG TAB PO SCH ×2 (09:09→19:57)
[2022-01-09] MEDS: lamoTRIgine 100 MG TAB PO SCH (09:09)
[2022-01-09] MEDS: MEROPENEM 1 GM in SODIUM CHLORIDE 0.9% 100 ML IVPB SCH ×2 (09:10→15:57)
[2022-01-09] MEDS: DEXAMETHASONE SOD PHOSPHATE 10 MG/ML 1 ML VIAL IVP SCH (09:11)
[2022-01-09 09:14] LABS: ALT 17 U/L (4-49); AST 29 U/L (17-59); African American GFR (CKD) >90 (>60 ml/min/1.73 sqM); Alkaline Phosphatase 161 U/L (38-126); Anion Gap 8 mmol/L; Blood Urea Nitrogen 13 mg/dL (9-20); C Reactive Protein 5.3 mg/dL (<1.0); Calcium 8.1 mg/dL (8.4-10.2); Carbon Dioxide 26 mmol/L (22-30); Chloride 110 mmol/L (98-107); Glucose 74 mg/dL (74-99); LDH 645 U/L (313-618); Magnesium 1.6 mg/dL (1.6-2.3); Non-African American GFR(CKD) >90 (>60 ml/min/1.73 sqM); Potassium 3.5 mmol/L (3.5-5.1); Sodium 144 mmol/L (137-145); Total Bilirubin 0.3 mg/dL (0.2-1.3); Total Protein 5.6 g/dL (6.3-8.2)
[2022-01-09] MEDS: ALBUTEROL HFA INHALER INHALATION PRN ×4 (09:16→21:05)
[2022-01-09 09:41] LABS: INR 1.1 (<1.2); Prothrombin Time 11.2 sec (9.0-12.0)
[2022-01-09] MEDS: MULTIVITAMINS, THERA 1 EACH TAB PO SCH (10:08)
[2022-01-09] MEDS: polyethylene glycoL 3350 17 GM POWD.PACK PO SCH ×2 (10:08→19:58)
[2022-01-09] MEDS: GABAPENTIN 300 MG CAP PO SCH ×3 (10:08→19:58)
[2022-01-09] MEDS: TROSPIUM CHLORIDE 20 MG TABLET PO SCH ×2 (10:08→19:58)
[2022-01-09] MEDS: PANTOPRAZOLE 40 MG TABLET PO SCH ×2 (10:08→19:58)
--- NOTE | 2022-01-09 11:24 | P.PN ---
Subjective Progress Note Date: 01/09/22 Principal diagnosis: sob O2 demands came down from 7 L nasal cannula yesterday to 3 L yesterday, patient is feeling better. He denied having shortness of breath currently. Denied having any pain. No fevers or chills. It was reported to me this morning that he was aspirating, swallowing properly. Objective - Vital Signs Vital signs: Vital Signs Temp 98.4 F 01/09/22 08:00 Pulse 87 01/09/22 08:00 Resp 16 01/09/22 08:00 BP 161/77 01/09/22 08:00 Pulse Ox 95 01/09/22 08:00 FiO2 50 01/08/22 04:40 Intake & Output 01/08/22 01/09/22 01/09/22 18:59 06:59 18:59 Intake Total 0 Output Total 520 585 0 Balance -520 -585 0 Weight 68.039 kg Intake: Oral 0 Output: Drainage 20 10 0 Left Hip 15 4 0 Left Thigh 5 6 0 Urine 500 575 Other: Voiding Method Indwelling Catheter Indwelling Catheter Indwelling Catheter # Bowel Movements 1 - Exam General: non toxic, no distress, appears at stated age Derm: warm, dry Head: atraumatic, normocephalic, symmetric Eyes: EOMI, no lid lag, anicteric sclera Mouth: no lip lesion, mucus membranes moist Cardiovascular: S1S2 reg, no murmur, positive posterior tibial pulse bilateral, Lungs: Bilateral rhonchi, on 6 L nasal cannula Abdominal: soft, nontender to palpation, no guarding, no appreciable organomegaly Ext: no gross muscle atrophy, no edema, no contractures, flaccid paralysis of left lower extremity, has 2 drains on the left side Skin: Skin graft noted in the left hip area. Neuro: CN II-XI grossly intact, no focal neuro deficits Psych: Alert, oriented, appropriate affect - Labs CBC & Chem 7: 01/09/22 08:05 01/09/22 08:05 Labs: Abnormal Lab Results - Last 24 Hours (Table) 01/08/22 01/08/22 01/08/22 Range/Units 11:32 16:40 19:53 RBC (4.30-5.90) m/uL Hgb (13.0-17.5) gm/dL Hct (39.0-53.0) % MCH (25.0-35.0) pg MCHC (31.0-37.0) g/dL RDW (11.5-15.5) % Lymphocytes # (1.0-4.8) k/uL Fibrinogen (200-500) mg/dL D-Dimer (<0.60) mg/L FEU Chloride (98-107) mmol/L Creatinine (0.66-1.25) mg/dL POC Glucose (mg/dL) 140 H 177 H 152 H (70-110) mg/dL Calcium (8.4-10.2) mg/dL Alkaline Phosphatase (38-126) U/L Lactate Dehydrogenase (313-618) U/L C-Reactive Protein (<1.0) mg/dL Total Protein (6.3-8.2) g/dL Albumin (3.5-5.0) g/dL 01/09/22 01/09/22 01/09/22 Range/Units 08:05 08:05 08:05 RBC 3.90 L (4.30-5.90) m/uL Hgb 9.2 L (13.0-17.5) gm/dL Hct 31.3 L (39.0-53.0) % MCH 23.7 L (25.0-35.0) pg MCHC 29.5 L (31.0-37.0) g/dL RDW 22.1 H (11.5-15.5) % Lymphocytes # 0.9 L (1.0-4.8) k/uL Fibrinogen 608 H (200-500) mg/dL D-Dimer 0.95 H (<0.60) mg/L FEU Chloride 110 H (98-107) mmol/L Creatinine 0.36 L (0.66-1.25) mg/dL POC Glucose (mg/dL) (70-110) mg/dL Calcium 8.1 L (8.4-10.2) mg/dL Alkaline Phosphatase 161 H (38-126) U/L Lactate Dehydrogenase 645 H (313-618) U/L C-Reactive Protein 5.3 H (<1.0) mg/dL Total Protein 5.6 L (6.3-8.2) g/dL Albumin 3.0 L (3.5-5.0) g/dL Assessment and Plan Plan: Acute hypoxic respiratory failure Acute COVID-19 pneumonia -On supplemental oxygen, BiPAP as needed -Steroids -remdesivir -Pulmonology consult Recent provoked DVT - on eliquis Recent left hip skin flap surgery, infection -Continue meropenem, guardian not sure how long is supposed to be on this Dysphagia - Speech language pathology evaluation ordered. -Case was discussed with cardiology and today, according to her he has been aspirating, having difficulty swallowing and coughing up to 4 hours after anything he eats since he was discharged from [facility] about a month ago, prior to that he was okay, she is okay with placing a feeding tube if needed -Consult GI Mild hypernatremia -Encourage oral intake Leukocytosis -Likely steroid-induced History of TBI History of developmental delay Dyslipidemia -Medications reviewed and reconciled DVT ppx: Eliquis Code status: Full code Anticipated discharge place: Home Anticipated discharge time: Pending clinical course
[2022-01-09 11:39] LABS: Glucose,Whole Blood 120 mg/dL (70-110)
--- NOTE | 2022-01-09 12:47 | P.PN ---
Subjective Progress Note Date: 01/09/22 Principal diagnosis: acute hypoxic respiratory failure secondary to COVID-19 pneumonia This is a 51-year-old male patient with a history of CVA/TIA, diabetes mellitus, hyperlipidemia, depression, History of traumatic brain injury, paraplegia, developmental delay, recent DVT currently on Eliquis. He had developed increasing shortness of breath, cough and congestion and was seen at [facility] and found to have COVID-19 pneumonia and transferred here for the same. Outside CAT scan had revealed bilateral opacities and a small right lung nodule. The patient had previously been hospitalized to have a PICC line replaced. He's been receiving antibiotics for a left hip skin flap performed at [facility] a month ago. Following that is when he developed the DVT. If he is seen today in the emergency department. He is currently sitting up in bed. Awake and alert. He is currently on 10 L high flow nasal cannula with O2 saturations to 99 and 100%. This x-ray reveals a left basilar acute infiltrate/atelectasis. White count 11.6. Hemoglobin 9.6. Sodium 146. Potassium 4.3. BUN 14. Creatinine 0.42. Glucose 159. He's been initiated on Decadron. Continued on meropenem. Reevaluated today on 01/08/22, patient seems to be doing better today, breathing easier, remains on 6 L nasal cannula, patient is on Remdesivir, he is also maintained on Merrem for his previous hip infection.patient has leukocytosis with WBC of 15.6, hemoglobin is 9.9. D-dimer 0.81. Electrolytes are normal except for slightly elevated sodium. Renal profile is normal.again the patient is on 6 L nasal cannula, and his O2 sats is 95% Reevaluated today on 01/09/22, patient continues to do well, remains on Remdesivir, he is maintained on Merrem for his hip infection, no major issues in the last 24 hours, patient feels he is breathing a lot easier. He is only on 2 L nasal cannula and O2 saturation ranging between 92 up to 95%. CBC is unremarkable. Electrolytes are normal renal profile is normal Objective - Vital Signs Vital signs: Vital Signs Temp 98.9 F 01/09/22 11:46 Pulse 98 01/09/22 11:46 Resp 16 01/09/22 11:46 BP 161/76 01/09/22 11:46 Pulse Ox 92 L 01/09/22 11:46 FiO2 50 01/08/22 04:40 Intake & Output 01/08/22 01/09/22 01/09/22 18:59 06:59 18:59 Intake Total 0 Output Total 520 585 0 Balance -520 -585 0 Weight 68.039 kg Intake: Oral 0 Output: Drainage 20 10 0 Left Hip 15 4 0 Left Thigh 5 6 0 Urine 500 575 Other: Voiding Method Indwelling Catheter Indwelling Catheter Indwelling Catheter # Bowel Movements 1 - Exam GENERAL EXAM: 51-year-old white male, paraplegic, on 2 L nasal cannula HEAD: Signs of previous trauma. Normocephalic. ENT: PERRLA, [place], anicteric, no neck masses, no JVD, no stridor. CHEST: No chest wall deformity. LUNGS: fine crackles at the bases bilaterally. CVS: S1 and S2 normal with no audible murmur, regular rhythm. ABDOMEN: No hepatosplenomegaly, normal bowel sounds, no guarding or rigidity. SPINE: No scoliosis or deformity SKIN: Recent left hip flat with drains in place CENTRAL NERVOUS SYSTEM: No focal deficits, tone is normal in all 4 extremities. EXTREMITIES: Contracture lower extremities. Paraplegia. There is no peripheral edema. No clubbing, no cyanosis. Peripheral pulses are intact. - Labs CBC & Chem 7: 01/09/22 08:05 01/09/22 08:05 Labs: Abnormal Lab Results - Last 24 Hours (Table) 01/08/22 01/08/22 01/09/22 Range/Units 16:40 19:53 08:05 RBC 3.90 L (4.30-5.90) m/uL Hgb 9.2 L (13.0-17.5) gm/dL Hct 31.3 L (39.0-53.0) % MCH 23.7 L (25.0-35.0) pg MCHC 29.5 L (31.0-37.0) g/dL RDW 22.1 H (11.5-15.5) % Lymphocytes # 0.9 L (1.0-4.8) k/uL Fibrinogen (200-500) mg/dL D-Dimer (<0.60) mg/L FEU Chloride (98-107) mmol/L Creatinine (0.66-1.25) mg/dL POC Glucose (mg/dL) 177 H 152 H (70-110) mg/dL Calcium (8.4-10.2) mg/dL Alkaline Phosphatase (38-126) U/L Lactate Dehydrogenase (313-618) U/L C-Reactive Protein (<1.0) mg/dL Total Protein (6.3-8.2) g/dL Albumin (3.5-5.0) g/dL 01/09/22 01/09/22 01/09/22 Range/Units 08:05 08:05 11:37 RBC (4.30-5.90) m/uL Hgb (13.0-17.5) gm/dL Hct (39.0-53.0) % MCH (25.0-35.0) pg MCHC (31.0-37.0) g/dL RDW (11.5-15.5) % Lymphocytes # (1.0-4.8) k/uL Fibrinogen 608 H (200-500) mg/dL D-Dimer 0.95 H (<0.60) mg/L FEU Chloride 110 H (98-107) mmol/L Creatinine 0.36 L (0.66-1.25) mg/dL POC Glucose (mg/dL) 120 H (70-110) mg/dL Calcium 8.1 L (8.4-10.2) mg/dL Alkaline Phosphatase 161 H (38-126) U/L Lactate Dehydrogenase 645 H (313-618) U/L C-Reactive Protein 5.3 H (<1.0) mg/dL Total Protein 5.6 L (6.3-8.2) g/dL Albumin 3.0 L (3.5-5.0) g/dL Assessment and Plan Assessment: Impression Acute hypoxemic respiratory failure secondary to COVID-19 pneumonia. On his third day of Remdesivir. History of previous traumatic brain injury and paraplegiaRecent surgery to the left hip including a flap at the [facility] approximately one month ago and currently on meropenem [address] Postprocedure DVT, currently on Eliquis History of developmental delay recommendation: Continue oxygen and titrate accordingly Continue Remdesivir Continue Eliquis Continue Decadron continue Merrem Possible discharge planning in the next 2 days we will continue to follow Time with Patient: Less than 30
[2022-01-09 16:18] LABS: Ferritin 90.9 ng/mL (22.0-322.0)
[2022-01-09 16:41] LABS: Glucose,Whole Blood 178 mg/dL (70-110)
[2022-01-09] MEDS: ATORVASTATIN 80 MG TAB PO SCH (19:58)
[2022-01-09 19:59] LABS: Glucose,Whole Blood 114 mg/dL (70-110)
[2022-01-09] MEDS: INSULIN DETEMIR (LEVEMIR) 100 UNIT/ML SYR SQ SCH (21:23)
[2022-01-09] MEDS: REMDESIVIR 100 MG in SODIUM CHLORIDE 0.9% 250 ML IVPB SCH (21:23)
[2022-01-10] MEDS: MEROPENEM 1 GM in SODIUM CHLORIDE 0.9% 100 ML IVPB SCH ×3 (00:09→17:04)
[2022-01-10] MEDS: SENNOSIDES 8.6 MG TAB PO SCH ×5 (00:16→20:32)
[2022-01-10] MEDS: LACTATED RINGERS 1,000 ML IV SCH ×3 (02:57→19:03)
[2022-01-10 05:55] LABS: Glucose,Whole Blood 81 mg/dL (70-110)
[2022-01-10] MEDS: ALBUTEROL HFA INHALER INHALATION PRN (08:16)
[2022-01-10] MEDS ORDERED: ACETAMINOPHEN IV (For NPO) 1,000 MG in EMPTY BAG 1 BAG IVPB ONE (09:15)
--- NOTE | 2022-01-10 10:00 | P.PN ---
Subjective Progress Note Date: 01/10/22 Principal diagnosis: sob Patient still having shortness of breath, currently requiring 4 L of oxygen, he miserably failed the swallow evaluation yesterday. Denies fevers or chills. No pain. Objective - Vital Signs Vital signs: Vital Signs Temp 100.5 F H 01/10/22 08:00 Pulse 88 01/10/22 08:00 Resp 16 01/10/22 08:00 BP 135/63 01/10/22 08:00 Pulse Ox 93 L 01/10/22 08:00 FiO2 50 01/09/22 16:12 Intake & Output 01/09/22 01/10/22 01/10/22 18:59 06:59 18:59 Intake Total 0 Output Total 605 671 887 Balance -692 -827 -677 Intake: Oral 0 Output: Drainage 6 16 Left Hip 3 7 Left Thigh 3 9 Urine 600 375 625 Other: Voiding Method Indwelling Catheter Indwelling Catheter - Exam General: non toxic, no distress, appears at stated age Derm: warm, dry Head: atraumatic, normocephalic, symmetric Eyes: EOMI, no lid lag, anicteric sclera Mouth: no lip lesion, mucus membranes moist Cardiovascular: S1S2 reg, no murmur, positive posterior tibial pulse bilateral, Lungs: Bilateral rhonchi, on 6 L nasal cannula Abdominal: soft, nontender to palpation, no guarding, no appreciable organomegaly Ext: no gross muscle atrophy, no edema, no contractures, flaccid paralysis of left lower extremity, has 2 drains on the left side Skin: Skin graft noted in the left hip area. Neuro: CN II-XI grossly intact, no focal neuro deficits Psych: Alert, oriented, appropriate affect - Labs CBC & Chem 7: 01/09/22 08:05 01/09/22 08:05 Labs: Abnormal Lab Results - Last 24 Hours (Table) 01/09/22 01/09/22 01/09/22 Range/Units 11:37 16:39 19:54 POC Glucose (mg/dL) 120 H 178 H 114 H (70-110) mg/dL Assessment and Plan Plan: Acute hypoxic respiratory failure Acute COVID-19 pneumonia -On supplemental oxygen currently requiring 4L, BiPAP as needed -Steroids -remdesivir -Duonebs -Pulmonology following Recent provoked DVT - on eliquis Recent left hip skin flap surgery, infection -Continue meropenem, guardian not sure how long is supposed to be on this Dysphagia -Failed swallowing evaluation -Consult surgery for feeding tube placement. Sister and yamile Patino consented. Mild hypernatremia -Continue IV fluids Leukocytosis -Resolved. History of TBI History of developmental delay Dyslipidemia -Medications reviewed and reconciled DVT ppx: Eliquis Code status: Full code Anticipated discharge place: Home Anticipated discharge time: Pending clinical course
[2022-01-10 10:49] LABS: Anisocytosis Moderate; Basophils % (A) 0 %; Eosinophils % (A) 1 %; HCT 26.2 % (39.0-53.0); HGB 8.1 gm/dL (13.0-17.5); Hypochromasia Marked; Lymphocytes % (A) 16 %; MCH 24.8 pg (25.0-35.0); MCHC 30.9 g/dL (31.0-37.0); MCV 80.2 fL (80.0-100.0); Mean Platelet Volume 8.4; Microcytosis Slight; Monocytes # (A) 0.3 k/uL (0-1.0); Monocytes % (A) 5 %; Neutrophils # (A) 4.9 k/uL (1.3-7.7); Neutrophils % (A) 78 %; Platelet Count 189 k/uL (150-450); Poikilocytosis Slight; RBC 3.27 m/uL (4.30-5.90); RDW 21.7 % (11.5-15.5); WBC 6.4 k/uL (3.8-10.6)
[2022-01-10 11:03] LABS: Prothrombin Time 10.8 sec (9.0-12.0)
[2022-01-10 11:04] LABS: ALT 19 U/L (4-49); AST 36 U/L (17-59); African American GFR (CKD) >90 (>60 ml/min/1.73 sqM); Albumin 2.9 g/dL (3.5-5.0); Alkaline Phosphatase 141 U/L (38-126); Anion Gap 10 mmol/L; Blood Urea Nitrogen 7 mg/dL (9-20); C Reactive Protein 5.4 mg/dL (<1.0); Calcium 7.8 mg/dL (8.4-10.2); Carbon Dioxide 27 mmol/L (22-30); Chloride 103 mmol/L (98-107); Glucose 69 mg/dL (74-99); LDH 588 U/L (313-618); Magnesium 1.5 mg/dL (1.6-2.3); Non-African American GFR(CKD) >90 (>60 ml/min/1.73 sqM); Sodium 140 mmol/L (137-145); Total Bilirubin 0.3 mg/dL (0.2-1.3); Total Protein 5.4 g/dL (6.3-8.2)
[2022-01-10] MEDS: DEXAMETHASONE SOD PHOSPHATE 10 MG/ML 1 ML VIAL IVP SCH (11:15)
[2022-01-10] MEDS: GABAPENTIN 300 MG CAP PO SCH ×3 (11:16→20:37)
[2022-01-10] MEDS: MULTIVITAMINS, THERA 1 EACH TAB PO SCH (11:16)
[2022-01-10] MEDS: lamoTRIgine 100 MG TAB PO SCH (11:16)
[2022-01-10] MEDS: polyethylene glycoL 3350 17 GM POWD.PACK PO SCH ×2 (11:16→20:37)
[2022-01-10] MEDS: PANTOPRAZOLE 40 MG TABLET PO SCH ×2 (11:16→20:37)
--- NOTE | 2022-01-10 11:16 | P.GSCN ---
History of Present Illness Consult date: 01/10/22 History of present illness: CHIEF COMPLAINT: Shortness of breath HISTORY OF PRESENT ILLNESS: This is a 51-year-old male who was transferred from [facility] on 01/06/2022 for shortness of breath. He is found have evidence of Covid Pneumonia. He is followed by pulmonary service. Patient also has concerns of aspirating. Patient reports that he has been coughing and choking on food while eating for about one month. Patient failed his swallow study. Surgical service has been consulted for PEG tube placement. History of traumatic brain injury and paraplegia. History of DVT on Eliquis. Last dose of Eliquis morning of 01/09/2022. No prior abdominal surgeries. Patient is on 4 L oxygen satting at 93% PAST MEDICAL HISTORY: See below PAST SURGICAL HISTORY: See Below MEDICATIONS: See below ALLERGIES: See below SOCIAL HISTORY: No illicit drug use. REVIEW OF SYSTEMS: CONSTITUTIONAL: Denies fever or chills. HEENT: Denies blurred vision, vision changes, or eye pain. Denies hemoptysis CARDIOVASCULAR: Denies chest pain or pressure. RESPIRATORY: No shortness of breath. GASTROINTESTINAL: See HPI for pertinent findings HEMATOLOGIC: Denies bleeding disorders. GENITOURINARY: Denies any blood in urine or increased urinary frequency. SKIN: Denies pruitis. Denies rash. PHYSICAL EXAM: VITAL SIGNS: Reviewed GENERAL: Well-developed in no acute distress. ABDOMEN: Soft. Nondistended. Nontender NEUROLOGIC: Alert and oriented. Cranial nerves II through XII grossly intact. LABORATORY DATA: WBC 6.4 Hgb 8.1 platelets 189 INR 1.0 d-dimer 1.06 fibrinogen 558 Sodium was 140 potassium 3.0 creatinine 0.35 Magnesium 1.5 Total bili 0.3 AST 36 ALT 19 alk phos 141 Albumin 2.9 IMAGING: ASSESSMENT: 1. Dysphagia and failed swallowing eval 2. Moderate protein calorie malnutrition 3. COVID-19 pneumonia 4. History of TBI and paraplegia 5. History of DVT on Eliquis PLAN: -Patient scheduled for PEG tube placement tomorrow, 01/11/[address] Moser -Continue supportive care -Hold Eliquis for peg tube placement -Replace Mg and K Thank you for this consultation Physician Political Science Instructor note has been reviewed by physician. Signing provider agrees with the documented findings, assessment, and plan of care. I have personally seen and examined the patient, reviewed the ARTS MANAGER /PAs history, exam and MDM and agree with the assessment and plan as written. Based on total visit time, I have performed more than 50% of the visit. As above: Patient with dysphagia and moderate protein calorie malnutrition. We were consulted for PEG tube placement. Patient is agreeable. We'll discuss with the patient's family. We'll tentatively schedule for tomorrow. Hold eloquis for now. Past Medical History Past Medical History: CVA/TIA, Diabetes Mellitus, Deep Vein Thrombosis (DVT), Eye Disorder, GERD/Reflux, Hearing Disorder / Deafness, Hyperlipidemia, Seizure Disorder, Sleep Apnea/CPAP/BIPAP Additional Past Medical History / Comment(s): Mentally challenged/poor decision making per pt's LG, last seizure (sister states d/t a reaction to an antibiotic) about 20 yrs ago, 1997 pt hit a horse and suffered TBI which caused paraplegia/blindness and loss hearing in R ear, bilateral hip wounds sister states caused by rubbing in wheelchair, L hip osteomyelitis/L hip joint removed, recent skin flap to L hip wound at [facility] then had a critical event per sister/blood clot and shadow found in one lower lung/was transfered to ICU, mentation change/unable to eat/chokes since last hospitalization at [facility], IDC/colostomy for diversion, contipation, IDDM, recent issues with hypoglycemia, SUSAN with cpap, UTI, spinal cord cysts, compression fractures in spine, anemia. History of Any Multi-Drug Resistant Organisms: ESBL Year Discovered:: 05/17/19 MDRO Source:: CATH URINE Past Surgical History: Orthopedic Surgery Additional Past Surgical History / Comment(s): L hip skin flap, L hip joint removed, titanium plate in forehead, surgery for undescended testicle, colonoscopy. Past Anesthesia/Blood Transfusion Reactions: No Reported Reaction Additional Past Anesthesia/Blood Transfusion Reaction / Comm: Pt has received blood in past without reaction. Smoking Status: Never smoker - Past Family History Mother Family Medical History: Coronary Artery Disease (CAD), Diabetes Mellitus, Hypertension Additional Family Medical History / Comment(s): Rheumatic fever Father Family Medical History: Coronary Artery Disease (CAD) family Family Medical History: Unable to Obtain Medications and Allergies Home Medications Medication Instructions Recorded Confirmed Type Alendronate Sodium 70 mg PO SA 01/07/22 01/07/22 History Apixaban [Eliquis] 5 mg PO BID 01/07/22 01/07/22 History Ascorbic Acid [Vitamin C] 250 mg PO DAILY 01/07/22 01/07/22 History Atorvastatin [Lipitor] 80 mg PO HS 01/07/22 01/07/22 History Baclofen 10 - 20 mg PO QID PRN 01/07/22 01/07/22 History Cholecalciferol (Vitamin D3) 125 mcg PO DAILY 01/07/22 01/07/22 History [Vitamin D3 (125 MCG = 5,000 IU)] Co Q-10 30mg 1 cap PO DAILY 01/07/22 01/07/22 History Docusate [Colace] 100 mg PO BID 01/07/22 01/07/22 History Ferrous Sulfate [Feosol] 325 mg PO DAILY 01/07/22 01/07/22 History Fluconazole [Diflucan] 200 mg PO DAILY 01/07/22 01/07/22 History Gabapentin 600 mg PO TID 01/07/22 01/07/22 History Insulin Glargine,Hum.rec.anlog 8 units SQ HS 01/07/22 01/07/22 History [Lantus Solostar Pen] Meloxicam [Mobic] 15 mg PO DAILY 01/07/22 01/07/22 History Meropenem [Merrem] 1 gm IV TID 01/07/22 01/07/22 History Metaxalone [Skelaxin] 400 mg PO BID 01/07/22 01/07/22 History Multivitamins, Thera [Multivitamin 1 tab PO DAILY 01/07/22 01/07/22 History (formulary)] Pantoprazole [Protonix] 40 mg PO BID 01/07/22 01/07/22 History Potassium Chloride Oral Liquid 10 meq PO DAILY 01/07/22 01/07/22 History Prucalopride Succinate [Motegrity] 2 mg PO DAILY 01/07/22 01/07/22 History Pyridoxine HCl (Vitamin B6) 100 mg PO DAILY 01/07/22 01/07/22 History [Vitamin B-6] Sennosides [Senokot] 8.6 mg PO 5XD 01/07/22 01/07/22 History Solifenacin Succinate [Vesicare] 10 mg PO DAILY 01/07/22 01/07/22 History amantadine HCL [Amantadine] 100 mg PO BID 01/07/22 01/07/22 History lamoTRIgine [LaMICtal] 150 mg PO DAILY 01/07/22 01/07/22 History modafiniL [Provigil] 200 mg PO BID 01/07/22 01/07/22 History polyethylene glycoL 3350 [Miralax] 17 gm PO BID 01/07/22 01/07/22 History tiZANidine [Zanaflex] 4 mg PO BID 01/07/22 01/07/22 History Allergies Allergy/AdvReac Type Severity Reaction Status Date / Time clindamycin Allergy Unknown Verified 01/07/22 08:23 daptomycin Allergy Unknown Verified 01/07/22 08:23 hydrochlorothiazide Allergy Unknown Verified 01/07/22 08:23 latex Allergy Unknown Verified 01/07/22 08:23 levofloxacin [From Levaquin] Allergy Unknown Verified 01/07/22 08:23 metformin Allergy Unknown Verified 01/07/22 08:23 Penicillins Allergy Unknown Verified 01/07/22 08:23 pioglitazone [From Actos] Allergy Unknown Verified 01/07/22 08:23 tizanidine [From Zanaflex] Allergy Unknown Verified 01/07/22 08:23 tobramycin Allergy Unknown Verified 01/07/22 08:23 vancomycin Allergy Unknown Verified 01/07/22 08:23 Surgical - Exam Vital Signs Temp Pulse Resp BP Pulse Ox 98.9 F 109 H 22 140/96 98 01/06/22 22:55 01/06/22 22:55 01/06/22 22:55 01/06/22 22:55 01/06/22 22:55 Results - Labs 01/10/22 09:28 01/10/22 09:28 Abnormal Lab Results - Last 24 Hours (Table) 01/09/22 01/09/22 01/09/22 Range/Units 11:37 16:39 19:54 POC Glucose (mg/dL) 120 H 178 H 114 H (70-110) mg/dL
[2022-01-10 11:43] LABS: Glucose,Whole Blood 96 mg/dL (70-110)
[2022-01-10] MEDS ORDERED: IPRATROPIUM-ALBUTEROL 3 ML NEB INHALATION SCH (12:00)
[2022-01-10] MEDS: ALBUTEROL HFA INHALER INHALATION SCH ×3 (12:29→20:32)
--- NOTE | 2022-01-10 12:54 | FL ---
Modified barium swallow. HISTORY: Dysphagia. Modified barium swallow was performed with the department of speech pathology. The patient was prese nted with various consistencies of barium. Silent aspiration was noted with thin barium and applesauce mixture. This information was subsequentl y terminated. Full report is to follow from the department of speech pathology. Impression: Silent aspiration.
--- NOTE | 2022-01-10 13:03 | P.PN ---
Subjective Progress Note Date: 01/10/22 Principal diagnosis: acute hypoxic respiratory failure secondary to COVID-19 pneumonia, possible aspiration pneumonia This is a 51-year-old male patient with a history of CVA/TIA, diabetes mellitus, hyperlipidemia, depression, History of traumatic brain injury, paraplegia, developmental delay, recent DVT currently on Eliquis. He had developed increasing shortness of breath, cough and congestion and was seen at [facility] and found to have COVID-19 pneumonia and transferred here for the same. Outside CAT scan had revealed bilateral opacities and a small right lung n odule. The patient had previously been hospitalized to have a PICC line replaced. He's been receiving antibiotics for a left hip skin flap performed at [facility] a month ago. Following that is when he developed the DVT. If he is seen today in the emergency department. He is currently sitting up in bed. Awake and alert. He is currently on 10 L high flow nasal cannula with O2 saturations to 99 and 100%. This x-ray reveals a left basilar acute infiltrate/atelectasis. White count 11.6. Hemoglobin 9.6. Sodium 146. Potassium 4.3. BUN 14. Creatinine 0.42. Glucose 159. He's been initiated on Decadron. Continued on meropenem. Reevaluated today on 01/08/22, patient seems to be doing better today, breathing easier, remains on 6 L nasal cannula, patient is on Remdesivir, he is also maintained on Merrem for his previous hip infection.patient has leukocytosis with WBC of 15.6, hemoglobin is 9.9. D-dimer 0.81. Electrolytes are normal except for slightly elevated sodium. Renal profile is normal.again the patient is on 6 L nasal cannula, and his O2 sats is 95% Reevaluated today on 01/09/22, patient continues to do well, remains on Remdesivir, he is maintained on Merrem for his hip infection, no major issues in the last 24 hours, patient feels he is breathing a lot easier. He is only on 2 L nasal cannula and O2 saturation ranging between 92 up to 95%. CBC is unremarkable. Electrolytes are normal renal profile is normal Reevaluated today on 01/10/22, patient is doing fairly well, remains on 4 L nasal cannula, O2 saturation ranging between 93 and 96%. Patient had a swallow evaluation yesterday as he was noted to have choking on the food and liquids, he failed his swallow evaluation, and now he is being considered for PEG tube placement. He did have a low-grade temp yesterday 100.5. Remains on antibiotics, remains on the COVID-19 cocktail. CBC is relatively normal and basic metabolic profile is normal. Objective - Vital Signs Vital signs: Vital Signs Temp 100.5 F H 01/10/22 08:00 Pulse 88 01/10/22 08:00 Resp 16 01/10/22 08:00 BP 135/63 01/10/22 08:00 Pulse Ox 93 L 01/10/22 08:00 FiO2 50 01/09/22 16:12 Intake & Output 01/09/22 01/10/22 01/10/22 18:59 06:59 18:59 Intake Total 0 Output Total 942 772 4196 Balance -352 -977 -6007 Intake: Oral 0 Output: Drainage 6 16 8 Left Hip 3 7 3 Left Thigh 3 9 5 Urine 678 907 0599 Stool 200 Other: Voiding Method Indwelling Catheter Indwelling Catheter Indwelling Catheter - Exam GENERAL EXAM: 51-year-old white male, paraplegic, on 4 L nasal cannula HEAD: Signs of previous trauma. Normocephalic. ENT: PERRLA, [place], anicteric, no neck masses, no JVD, no stridor. CHEST: No chest wall deformity. LUNGS: fine crackles at the bases bilaterally. CVS: S1 and S2 normal with no audible murmur, regular rhythm. ABDOMEN: No hepatosplenomegaly, normal bowel sounds, no guarding or rigidity. SPINE: No scoliosis or deformity SKIN: Recent left hip flat with drains in place CENTRAL NERVOUS SYSTEM: No focal deficits, tone is normal in all 4 extremities. EXTREMITIES: Contracture lower extremities. Paraplegia. There is no peripheral edema. No clubbing, no cyanosis. Peripheral pulses are intact. - Labs CBC & Chem 7: 01/10/22 09:28 01/10/22 09:28 Labs: Abnormal Lab Results - Last 24 Hours (Table) 01/09/22 01/09/22 01/10/22 Range/Units 16:39 19:54 09:28 RBC 3.27 L (4.30-5.90) m/uL Hgb 8.1 L (13.0-17.5) gm/dL Hct 26.2 L (39.0-53.0) % MCH 24.8 L (25.0-35.0) pg MCHC 30.9 L (31.0-37.0) g/dL RDW 21.7 H (11.5-15.5) % Fibrinogen (200-500) mg/dL D-Dimer (<0.60) mg/L FEU Potassium (3.5-5.1) mmol/L BUN (9-20) mg/dL Creatinine (0.66-1.25) mg/dL Glucose (74-99) mg/dL POC Glucose (mg/dL) 178 H 114 H (70-110) mg/dL Calcium (8.4-10.2) mg/dL Magnesium (1.6-2.3) mg/dL Alkaline Phosphatase (38-126) U/L C-Reactive Protein (<1.0) mg/dL Total Protein (6.3-8.2) g/dL Albumin (3.5-5.0) g/dL 01/10/22 01/10/22 Range/Units 09:28 09:28 RBC (4.30-5.90) m/uL Hgb (13.0-17.5) gm/dL Hct (39.0-53.0) % MCH (25.0-35.0) pg MCHC (31.0-37.0) g/dL RDW (11.5-15.5) % Fibrinogen 558 H (200-500) mg/dL D-Dimer 1.06 H (<0.60) mg/L FEU Potassium 3.0 L (3.5-5.1) mmol/L BUN 7 L (9-20) mg/dL Creatinine 0.35 L (0.66-1.25) mg/dL Glucose 69 L (74-99) mg/dL POC Glucose (mg/dL) (70-110) mg/dL Calcium 7.8 L (8.4-10.2) mg/dL Magnesium 1.5 L (1.6-2.3) mg/dL Alkaline Phosphatase 141 H (38-126) U/L C-Reactive Protein 5.4 H (<1.0) mg/dL Total Protein 5.4 L (6.3-8.2) g/dL Albumin 2.9 L (3.5-5.0) g/dL Assessment and Plan Assessment: Impression Acute hypoxemic respiratory failure secondary to COVID-19 pneumonia. On his fourth day of Remdesivir. History of previous traumatic brain injury and paraplegiaRecent surgery to the left hip including a flap at the [facility] approximately one month ago and currently on meropenem [address] Postprocedure DVT, currently on Eliquis History of developmental delay possible aspiration pneumonia, failed swallow evaluation, scheduled for PEG tube placement tomorrow recommendation: Continue oxygen and titrate accordingly Continue Remdesivir Continue Eliquis Continue Decadron continue Merrem PEG tube scheduled to be done tomorrow we will continue to follow Time with Patient: Less than 30
[2022-01-10] MEDS: POTASSIUM CHLORIDE 10 MEQ in WATER FOR INJECTION 1 100ML.BAG IVPB SCH ×6 (13:18→22:48)
[2022-01-10] MEDS: MAGNESIUM SULFATE-D5W PMX 1 GM in DEXTROSE/WATER 1 100ML.BAG IVPB SCH ×2 (13:18→15:26)
[2022-01-10 16:25] LABS: Glucose,Whole Blood 183 mg/dL (70-110)
[2022-01-10 18:53] LABS: Ferritin 71.1 ng/mL (22.0-322.0)
[2022-01-10 20:36] LABS: Glucose,Whole Blood 144 mg/dL (70-110)
[2022-01-10] MEDS: ATORVASTATIN 80 MG TAB PO SCH (20:37)
[2022-01-10] MEDS ORDERED: ACETAMINOPHEN IV (For NPO) 1,000 MG in EMPTY BAG 1 BAG IVPB PRN (20:44)
[2022-01-10] MEDS: TROSPIUM CHLORIDE 20 MG TABLET PO SCH (21:05)
[2022-01-10] MEDS: APIXABAN 5 MG TAB PO SCH (21:05)
[2022-01-10] MEDS: INSULIN DETEMIR (LEVEMIR) 100 UNIT/ML SYR SQ SCH (21:08)
[2022-01-10] MEDS: REMDESIVIR 100 MG in SODIUM CHLORIDE 0.9% 250 ML IVPB SCH (21:08)
[2022-01-11] MEDS: SENNOSIDES 8.6 MG TAB PO SCH ×5 (00:26→21:23)
[2022-01-11] MEDS: MEROPENEM 1 GM in SODIUM CHLORIDE 0.9% 100 ML IVPB SCH ×3 (00:27→16:37)
[2022-01-11] MEDS: LACTATED RINGERS 1,000 ML IV SCH ×3 (01:35→16:36)
[2022-01-11 06:01] LABS: Glucose,Whole Blood 83 mg/dL (70-110)
[2022-01-11 07:34] LABS: Anisocytosis Moderate; HCT 28.7 % (39.0-53.0); HGB 8.4 gm/dL (13.0-17.5); Hypochromasia Marked; MCH 23.6 pg (25.0-35.0); MCHC 29.3 g/dL (31.0-37.0); MCV 80.5 fL (80.0-100.0); Mean Platelet Volume 8.6; Microcytosis Slight; Platelet Count 231 k/uL (150-450); Poikilocytosis Slight; RBC 3.56 m/uL (4.30-5.90); RDW 21.6 % (11.5-15.5); WBC 5.6 k/uL (3.8-10.6)
[2022-01-11] MEDS: ALBUTEROL HFA INHALER INHALATION SCH ×4 (07:53→19:43)
[2022-01-11 07:55] LABS: African American GFR (CKD) >90 (>60 ml/min/1.73 sqM); Anion Gap 8 mmol/L; Blood Urea Nitrogen 5 mg/dL (9-20); Calcium 7.8 mg/dL (8.4-10.2); Carbon Dioxide 29 mmol/L (22-30); Chloride 104 mmol/L (98-107); Glucose 72 mg/dL (74-99); Magnesium 1.8 mg/dL (1.6-2.3); Non-African American GFR(CKD) >90 (>60 ml/min/1.73 sqM); Potassium 3.6 mmol/L (3.5-5.1); Sodium 141 mmol/L (137-145)
[2022-01-11] MEDS: DEXAMETHASONE SOD PHOSPHATE 10 MG/ML 1 ML VIAL IVP SCH (09:19)
[2022-01-11] MEDS ORDERED: FUROSEMIDE 10 MG/ML 2 ML VIAL IV ONE (11:01)
[2022-01-11 11:44] LABS: Glucose,Whole Blood 96 mg/dL (70-110)
--- NOTE | 2022-01-11 11:51 | P.PN ---
Subjective Progress Note Date: 01/11/22 Principal diagnosis: sob Patient states that he was feeling ok however he was noted to have worsening breathing today. His oxygen saturations are still above 90% on 2 L. Had a peak temp of 100.6 last night. No nausea or vomiting. Objective - Vital Signs Vital signs: Vital Signs Temp 98.6 F 01/11/22 11:38 Pulse 82 01/11/22 09:23 Resp 18 01/11/22 11:38 BP 166/86 01/11/22 11:38 Pulse Ox 94 L 01/11/22 11:38 FiO2 50 01/11/22 04:24 Intake & Output 01/10/22 01/11/22 01/11/22 18:59 06:59 18:59 Intake Total 0 20 Output Total 290 2111 Balance -2907 -2091 Weight 68.039 kg 68.039 kg Intake: IV 20 Invasive Line 2 10 Invasive Line 4 10 Oral 0 Output: Drainage 8 12 12 Left Hip 3 3 3 Left Thigh 5 9 9 Urine 2700 2100 550 Uretheral (Robins) 500 Stool 200 Other: Voiding Method Indwelling Catheter Indwelling Catheter Indwelling Catheter - Exam General: non toxic, no distress, appears at stated age Derm: warm, dry Head: atraumatic, normocephalic, symmetric Eyes: EOMI, no lid lag, anicteric sclera Mouth: no lip lesion, mucus membranes moist Cardiovascular: S1S2 reg, no murmur, positive posterior tibial pulse bilateral, Lungs: Bilateral rhonchi, on 6 L nasal cannula Abdominal: soft, nontender to palpation, no guarding, no appreciable organom egaly Ext: no gross muscle atrophy, no edema, no contractures, flaccid paralysis of left lower extremity, has 2 drains on the left side Skin: Skin graft noted in the left hip area. Neuro: CN II-XI grossly intact, no focal neuro deficits Psych: Alert, oriented, appropriate affect - Labs CBC & Chem 7: 01/11/22 06:14 01/11/22 06:14 Labs: Abnormal Lab Results - Last 24 Hours (Table) 01/10/22 01/10/22 01/11/22 Range/Units 16:24 20:34 06:14 RBC 3.56 L (4.30-5.90) m/uL Hgb 8.4 L (13.0-17.5) gm/dL Hct 28.7 L (39.0-53.0) % MCH 23.6 L (25.0-35.0) pg MCHC 29.3 L (31.0-37.0) g/dL RDW 21.6 H (11.5-15.5) % BUN (9-20) mg/dL Creatinine (0.66-1.25) mg/dL Glucose (74-99) mg/dL POC Glucose (mg/dL) 183 H 144 H (70-110) mg/dL Calcium (8.4-10.2) mg/dL 01/11/22 Range/Units 06:14 RBC (4.30-5.90) m/uL Hgb (13.0-17.5) gm/dL Hct (39.0-53.0) % MCH (25.0-35.0) pg MCHC (31.0-37.0) g/dL RDW (11.5-15.5) % BUN 5 L (9-20) mg/dL Creatinine 0.30 L (0.66-1.25) mg/dL Glucose 72 L (74-99) mg/dL POC Glucose (mg/dL) (70-110) mg/dL Calcium 7.8 L (8.4-10.2) mg/dL Assessment and Plan Plan: Acute hypoxic respiratory failure Acute COVID-19 pneumonia -On supplemental oxygen currently requiring 4L, BiPAP as needed -Steroids -remdesivir -Duonebs -Pulmonology following 01/11 Seems to be more coarse on exam, will hold IV fluids and give one dose of lasix to keep on the dry side Recent provoked DVT - on eliquis Recent left hip skin flap surgery, infection -Continue meropenem, guardian not sure how long is supposed to be on this Dysphagia -Failed swallowing evaluation -PEG feeding tube placement by surgery today. Sister and yamile Patino consented. Mild hypernatremia -Resolved. Leukocytosis -Resolved. History of TBI History of developmental delay Dyslipidemia -Medications reviewed and reconciled DVT ppx: Eliquis Code status: Full code Anticipated discharge place: Home Anticipated discharge time: Pending clinical course
[2022-01-11] MEDS: ONDANSETRON 4 MG/2 ML VIAL IVP PRN ×2 (12:30→21:57)
[2022-01-11] MEDS: GABAPENTIN 300 MG CAP PO SCH ×3 (12:38→21:24)
[2022-01-11] MEDS: lamoTRIgine 100 MG TAB PO SCH (12:38)
[2022-01-11] MEDS: polyethylene glycoL 3350 17 GM POWD.PACK PO SCH ×2 (12:39→21:24)
[2022-01-11] MEDS: PANTOPRAZOLE 40 MG TABLET PO SCH ×2 (12:39→21:24)
[2022-01-11] MEDS: MULTIVITAMINS, THERA 1 EACH TAB PO SCH (12:39)
--- NOTE | 2022-01-11 14:20 | P.PN ---
Subjective Progress Note Date: 01/11/22 Principal diagnosis: acute hypoxic respiratory failure secondary to COVID-19 pneumonia, possible aspiration pneumonia This is a 51-year-old male patient with a history of CVA/TIA, diabetes mellitus, hyperlipidemia, depression, History of traumatic brain injury, paraplegia, developmental delay, recent DVT currently on Eliquis. He had developed increasing shortness of breath, cough and congestion and was seen at [facility] and found to have COVID-19 pneumonia and transferred here for the same. Outside CAT scan had revealed bilateral opacities and a small right lung n odule. The patient had previously been hospitalized to have a PICC line replaced. He's been receiving antibiotics for a left hip skin flap performed at [facility] a month ago. Following that is when he developed the DVT. If he is seen today in the emergency department. He is currently sitting up in bed. Awake and alert. He is currently on 10 L high flow nasal cannula with O2 saturations to 99 and 100%. This x-ray reveals a left basilar acute infiltrate/atelectasis. White count 11.6. Hemoglobin 9.6. Sodium 146. Potassium 4.3. BUN 14. Creatinine 0.42. Glucose 159. He's been initiated on Decadron. Continued on meropenem. Reevaluated today on 01/08/22, patient seems to be doing better today, breathing easier, remains on 6 L nasal cannula, patient is on Remdesivir, he is also maintained on Merrem for his previous hip infection.patient has leukocytosis with WBC of 15.6, hemoglobin is 9.9. D-dimer 0.81. Electrolytes are normal except for slightly elevated sodium. Renal profile is normal.again the patient is on 6 L nasal cannula, and his O2 sats is 95% Reevaluated today on 01/09/22, patient continues to do well, remains on Remdesivir, he is maintained on Merrem for his hip infection, no major issues in the last 24 hours, patient feels he is breathing a lot easier. He is only on 2 L nasal cannula and O2 saturation ranging between 92 up to 95%. CBC is unremarkable. Electrolytes are normal renal profile is normal Reevaluated today on 01/10/22, patient is doing fairly well, remains on 4 L nasal cannula, O2 saturation ranging between 93 and 96%. Patient had a swallow evaluation yesterday as he was noted to have choking on the food and liquids, he failed his swallow evaluation, and now he is being considered for PEG tube placement. He did have a low-grade temp yesterday 100.5. Remains on antibiotics, remains on the COVID-19 cocktail. CBC is relatively normal and basic metabolic profile is normal. Reevaluated today on 01/11/22, patient is on 3 L nasal cannula, doing well, not in any distress, patient is scheduled to have a PEG tube placed today. Remains on the COVID-19 cocktail. Remains on antibiotics. Overall the patient is doing better than expected. WBC count is 5.6 hemoglobin 8.4 lites are normal renal profile is normal Objective - Vital Signs Vital signs: Vital Signs Temp 98.6 F 01/11/22 11:38 Pulse 82 01/11/22 09:23 Resp 18 01/11/22 11:38 BP 166/86 01/11/22 11:38 Pulse Ox 94 L 01/11/22 11:38 FiO2 50 01/11/22 04:24 Intake & Output 01/10/22 01/11/22 01/11/22 18:59 06:59 18:59 Intake Total 0 20 Output Total 2908 2112 2387 Balance -2908 -2 -2387 Weight 68.039 kg 68.039 kg Intake: IV 20 Invasive Line 2 10 Invasive Line 4 10 Oral 0 Output: Drainage 8 12 12 Left Hip 3 3 3 Left Thigh 5 9 9 Urine 2700 2100 2375 Uretheral (Robins) 500 1250 Stool 200 Other: Voiding Method Indwelling Catheter Indwelling Catheter Indwelling Catheter - Exam GENERAL EXAM: 51-year-old white male, paraplegic, on 3L nasal cannula HEAD: Signs of previous trauma. Normocephalic. ENT: PERRLA, MS, anicteric, no neck masses, no JVD, no stridor. CHEST: No chest wall deformity. LUNGS: fine crackles at the bases bilaterally. CVS: S1 and S2 normal with no audible murmur, regular rhythm. ABDOMEN: No hepatosplenomegaly, normal bowel sounds, no guarding or rigidity. SPINE: No scoliosis or deformity SKIN: Recent left hip flat with drains in place CENTRAL NERVOUS SYSTEM: No focal deficits, tone is normal in all 4 extremities. EXTREMITIES: Contracture lower extremities. Paraplegia. There is no peripheral edema. No clubbing, no cyanosis. Peripheral pulses are intact. - Labs CBC & Chem 7: 01/11/22 06:14 01/11/22 06:14 Labs: Abnormal Lab Results - Last 24 Hours (Table) 01/10/22 01/10/22 01/11/22 Range/Units 16:24 20:34 06:14 RBC 3.56 L (4.30-5.90) m/uL Hgb 8.4 L (13.0-17.5) gm/dL Hct 28.7 L (39.0-53.0) % MCH 23.6 L (25.0-35.0) pg MCHC 29.3 L (31.0-37.0) g/dL RDW 21.6 H (11.5-15.5) % BUN (9-20) mg/dL Creatinine (0.66-1.25) mg/dL Glucose (74-99) mg/dL POC Glucose (mg/dL) 183 H 144 H (70-110) mg/dL Calcium (8.4-10.2) mg/dL 01/11/22 Range/Units 06:14 RBC (4.30-5.90) m/uL Hgb (13.0-17.5) gm/dL Hct (39.0-53.0) % MCH (25.0-35.0) pg MCHC (31.0-37.0) g/dL RDW (11.5-15.5) % BUN 5 L (9-20) mg/dL Creatinine 0.30 L (0.66-1.25) mg/dL Glucose 72 L (74-99) mg/dL POC Glucose (mg/dL) (70-110) mg/dL Calcium 7.8 L (8.4-10.2) mg/dL Assessment and Plan Assessment: Impression Acute hypoxemic respiratory failure secondary to COVID-19 pneumonia. On his fif th and last day of Remdesivir History of previous traumatic brain injury and paraplegia.Recent surgery to the left hip including a flap at the [facility] approximately one month ago and currently on meropenem [address] Postprocedure DVT, currently on Eliquis History of developmental delay possible aspiration pneumonia, PEG tube is scheduled to be placed today. recommendation: Continue oxygen and titrate accordingly Continue Remdesivir today is the last day of Remdesivir., Continue Eliquis Continue Decadron continue Merrem PEG tube scheduled today. We will continue to follow Time with Patient: Less than 30
[2022-01-11] MEDS ORDERED: PROPOFOL 10 MG/ML 20 ML VIAL IV ONE (16:07)
[2022-01-11] MEDS ORDERED: LIDOCAINE 2% INJ 20 MG/ML (2 ML VIAL) ONE (16:07)
[2022-01-11] MEDS ORDERED: IV FLUID CONTINUATION 400 ML IV ONE (16:36)
--- NOTE | 2022-01-11 16:39 | P.PCN ---
Date of Procedure: 01/11/22 Procedure(s) Performed: Preoperative Dx: Malnutrition, dysphagia Postoperative Dx: Esophageal stricture Procedure: Esophagoscopy with dilation Anesthesia: Sedation Endoscopist: Dr. Moser Specimens: None Endoscopic Procedure: The patient was on the endoscopy table in the left decubitus position. The Olympus gastroscope was inserted into the oropharynx and passed under direct visualization to the midesophagus. The patient had a tight stricture here. There was circumferential inflammatory changes present. The 8-10 mm balloon was utilized. I was able to pass the balloon past the stricture site without meeting resistance. The balloon was then inflated to 8 mm held for 1 minute. The balloon was let down. There were no mucosal tears seen. The balloon was then inflated to 9 mm. Again this was held for 1 minute. The site was inspected. No bleeding was again seen. The balloon was then infl ated at 10 mm and held for 1 minute. Attempt at advancing the scope through that area were unsuccessful. The 10-12 mm balloon was then utilized and dilation to [address]. A small amount oozing from the mucosa was seen after holding for 1 minute. We were still unable to advance the scope through that point. No further dilation took place at this time and scope removed. The patient was then taken to the recovery room in stable condition per anesthesia guidelines. Recommendations: Clinical findings discussed with the patient's sister Carey by phone. Will reattempt EGD with dilation and PEG tube placement on Friday. Keep nothing by mouth for now.
[2022-01-11 16:55] LABS: Glucose,Whole Blood 123 mg/dL (70-110)
[2022-01-11 19:59] LABS: Glucose,Whole Blood 131 mg/dL (70-110)
[2022-01-11] MEDS: REMDESIVIR 100 MG in SODIUM CHLORIDE 0.9% 250 ML IVPB SCH (20:32)
[2022-01-11] MEDS: INSULIN DETEMIR (LEVEMIR) 100 UNIT/ML SYR SQ SCH (20:32)
[2022-01-11] MEDS: ATORVASTATIN 80 MG TAB PO SCH (21:23)
[2022-01-12] MEDS: SENNOSIDES 8.6 MG TAB PO SCH ×6 (01:49→23:34)
[2022-01-12 06:07] LABS: Glucose,Whole Blood 146 mg/dL (70-110)
[2022-01-12] MEDS: ALBUTEROL HFA INHALER INHALATION SCH ×4 (08:17→20:32)
[2022-01-12] MEDS: DEXAMETHASONE SOD PHOSPHATE 10 MG/ML 1 ML VIAL IVP SCH (09:27)
[2022-01-12] MEDS: MEROPENEM 1 GM in SODIUM CHLORIDE 0.9% 100 ML IVPB SCH ×5 (09:28→23:29)
[2022-01-12] MEDS: lamoTRIgine 100 MG TAB PO SCH (10:41)
[2022-01-12] MEDS: GABAPENTIN 300 MG CAP PO SCH ×3 (10:41→20:02)
[2022-01-12] MEDS: PANTOPRAZOLE 40 MG TABLET PO SCH ×2 (10:41→20:01)
[2022-01-12] MEDS: MULTIVITAMINS, THERA 1 EACH TAB PO SCH (10:41)
[2022-01-12] MEDS: polyethylene glycoL 3350 17 GM POWD.PACK PO SCH ×2 (10:42→20:02)
--- NOTE | 2022-01-12 10:42 | XR ---
EXAMINATION TYPE: XR chest 1V portable DATE OF EXAM: 01/12/2022 10:25 AM COMPARISON: Chest radiographs from 12/30/2021 TECHNIQUE: XR chest 1V portable Portable AP radiograph of the chest. CLINICAL INDICATION:Male, 51 years old with history of Hypoxemia, CoVID; FINDINGS: Lungs/Pleura: Similar left basilar airspace opacities. No evidence of pneumothorax or pleural effusio n. Pulmonary vascularity: Unremarkable. Heart/mediastinum: Cardiomediastinal silhouette is unremarkable. Musculoskeletal: No acute osseous pathology. IMPRESSION: Similar airspace opacities.
[2022-01-12 11:53] LABS: Glucose,Whole Blood 160 mg/dL (70-110)
--- NOTE | 2022-01-12 12:30 | P.PN ---
Subjective Progress Note Date: 01/12/22 Principal diagnosis: acute hypoxic respiratory failure secondary to COVID-19 pneumonia, possible aspiration pneumonia This is a 51-year-old male patient with a history of CVA/TIA, diabetes mellitus, hyperlipidemia, depression, History of traumatic brain injury, paraplegia, developmental delay, recent DVT currently on Eliquis. He had developed increasing shortness of breath, cough and congestion and was seen at [facility] and found to have COVID-19 pneumonia and transferred here for the same. Outside CAT scan had revealed bilateral opacities and a small right lung n odule. The patient had previously been hospitalized to have a PICC line replaced. He's been receiving antibiotics for a left hip skin flap performed at [facility] a month ago. Following that is when he developed the DVT. If he is seen today in the emergency department. He is currently sitting up in bed. Awake and alert. He is currently on 10 L high flow nasal cannula with O2 saturations to 99 and 100%. This x-ray reveals a left basilar acute infiltrate/atelectasis. White count 11.6. Hemoglobin 9.6. Sodium 146. Potassium 4.3. BUN 14. Creatinine 0.42. Glucose 159. He's been initiated on Decadron. Continued on meropenem. Reevaluated today on 01/08/22, patient seems to be doing better today, breathing easier, remains on 6 L nasal cannula, patient is on Remdesivir, he is also maintained on Merrem for his previous hip infection.patient has leukocytosis with WBC of 15.6, hemoglobin is 9.9. D-dimer 0.81. Electrolytes are normal except for slightly elevated sodium. Renal profile is normal.again the patient is on 6 L nasal cannula, and his O2 sats is 95% Reevaluated today on 01/09/22, patient continues to do well, remains on Remdesivir, he is maintained on Merrem for his hip infection, no major issues in the last 24 hours, patient feels he is breathing a lot easier. He is only on 2 L nasal cannula and O2 saturation ranging between 92 up to 95%. CBC is unremarkable. Electrolytes are normal renal profile is normal Reevaluated today on 01/10/22, patient is doing fairly well, remains on 4 L nasal cannula, O2 saturation ranging between 93 and 96%. Patient had a swallow evaluation yesterday as he was noted to have choking on the food and liquids, he failed his swallow evaluation, and now he is being considered for PEG tube placement. He did have a low-grade temp yesterday 100.5. Remains on antibiotics, remains on the COVID-19 cocktail. CBC is relatively normal and basic metabolic profile is normal. Reevaluated today on 01/11/22, patient is on 3 L nasal cannula, doing well, not in any distress, patient is scheduled to have a PEG tube placed today. Remains on the COVID-19 cocktail. Remains on antibiotics. Overall the patient is doing better than expected. WBC count is 5.6 hemoglobin 8.4 lites are normal renal profile is normal Reevaluated today on 02/08/22, patient is doing well, however around 1 AM last night, patient was placed for some reason on BiPAP, his chest x-ray today is reassuring, he continues to have minimal left basilar opacity/consistent with pneumonia, but slightly improved compared to the admission chest x-ray. His O2 saturation on 3 L was 98%, apparently the patient felt more comfortable with the BiPAP 50% FiO2. However needs to be placed back on nasal cannula. Patient had uneventful PEG tube placement yesterday, and he will be started on enteral feeding likely today. Electrolytes are normal renal profile is normal CBC showed a low hemoglobin of 8.4 which is about his baseline Objective - Vital Signs Vital signs: Vital Signs Temp 98.2 F 01/12/22 09:30 Pulse 95 01/12/22 09:30 Resp 20 01/12/22 09:30 BP 135/94 01/12/22 09:30 Pulse Ox 98 01/12/22 09:30 FiO2 50 01/12/22 11:26 Intake & Output 01/11/22 01/12/22 01/12/22 18:59 06:59 18:59 Output Total 3102 608 Balance -3102 -608 Weight 68.039 kg Output: Drainage 27 8 Left Hip 8 2 Left Thigh 19 6 Urine 2975 600 Uretheral (Robins) 1250 Stool 100 Other: Voiding Method Indwelling Catheter Indwelling Catheter Indwelling Catheter - Exam GENERAL EXAM: 51-year-old white male, paraplegic, on BiPAP 12/5 and 50% FiO2. HEAD: Signs of previous trauma. Normocephalic. ENT: PERRLA, OR, anicteric, no neck masses, no JVD, no stridor. CHEST: No chest wall deformity. LUNGS: Crackles persist especially at the left base.. CVS: S1 and S2 normal with no audible murmur, regular rhythm. ABDOMEN: No hepatosplenomegaly, normal bowel sounds, no guarding or rigidity. PEG tube is intact SPINE: No scoliosis or deformity SKIN: Recent left hip flat with drains in place CENTRAL NERVOUS SYSTEM: No focal deficits, tone is normal in all 4 extremities. EXTREMITIES: Contracture lower extremities. Paraplegia. There is no peripheral edema. No clubbing, no cyanosis. Peripheral pulses are intact. - Labs CBC & Chem 7: 01/11/22 06:14 01/11/22 06:14 Labs: Abnormal Lab Results - Last 24 Hours (Table) 01/11/22 01/11/22 01/12/22 Range/Units 16:49 19:58 06:05 POC Glucose (mg/dL) 123 H 131 H 146 H (70-110) mg/dL 01/12/22 Range/Units 11:51 POC Glucose (mg/dL) 160 H (70-110) mg/dL Assessment and Plan Assessment: Impression Acute hypoxemic respiratory failure secondary to COVID-19 pneumonia. Finished a full course of Remdesivir. History of previous traumatic brain injury and paraplegia.Recent surgery to the left hip including a flap at the [facility] approximately one month ago and currently on meropenem [address] Postprocedure DVT, currently on Eliquis History of developmental delay possible aspiration pneumonia, PEG tube is scheduled to be placed today. recommendation: Lace back on nasal cannula. Continue oxygen and titrate accordingly Finished full course of Remdesivir. Continue Eliquis Continue Decadron continue Merrem Possibly use PEG tube today once cleared by surgery We will continue to follow Time with Patient: Less than 30
--- NOTE | 2022-01-12 12:34 | P.PN ---
Subjective Progress Note Date: 01/12/22 Patient had attempted EGD with dilation. On BiPAP. Scheduled PEG tube for Friday. Objective - Vital Signs Vital signs: Vital Signs Temp 98.6 F 01/12/22 12:25 Pulse 66 01/12/22 12:25 Resp 18 01/12/22 12:25 BP 149/79 01/12/22 12:25 Pulse Ox 96 01/12/22 12:25 FiO2 50 01/12/22 11:26 Intake & Output 01/11/22 01/12/22 01/12/22 18:59 06:59 18:59 Output Total 3102 608 Balance -3102 -608 Weight 68.039 kg Output: Drainage 27 8 Left Hip 8 2 Left Thigh 19 6 Urine 2975 600 Uretheral (Robins) 1250 Stool 100 Other: Voiding Method Indwelling Catheter Indwelling Catheter Indwelling Catheter - Labs CBC & Chem 7: 01/11/22 06:14 01/11/22 06:14 Labs: Abnormal Lab Results - Last 24 Hours (Table) 01/11/22 01/11/22 01/12/22 Range/Units 16:49 19:58 06:05 POC Glucose (mg/dL) 123 H 131 H 146 H (70-110) mg/dL 01/12/22 Range/Units 11:51 POC Glucose (mg/dL) 160 H (70-110) mg/dL
[2022-01-12] MEDS ORDERED: SIMETHICONE 40 MG/0.6 ML DROPS 2,000 MG/30 ML BOTTLE PO SCH (12:35)
[2022-01-12] MEDS: ONDANSETRON 4 MG/2 ML VIAL IVP PRN (12:37)
[2022-01-12] MEDS ORDERED: ALVIMOPAN 12 MG CAPSULE PO SCH (12:45)
--- NOTE | 2022-01-12 14:21 | P.PN ---
Subjective Progress Note Date: 01/12/22 Principal diagnosis: sob He threw up this am, was given some zofran, currently ok. No sob, on 4L with normal sats. No pain. Objective - Vital Signs Vital signs: Vital Signs Temp 98.6 F 01/12/22 12:25 Pulse 66 01/12/22 12:25 Resp 18 01/12/22 12:25 BP 149/79 01/12/22 12:25 Pulse Ox 96 01/12/22 12:25 FiO2 50 01/12/22 11:26 Intake & Output 01/11/22 01/12/22 01/12/22 18:59 06:59 18:59 Output Total 3102 608 Balance -3102 -608 Weight 68.039 kg 68.039 kg Output: Drainage 27 8 Left Hip 8 2 Left Thigh 19 6 Urine 2975 600 Uretheral (Robins) 1250 Stool 100 Other: Voiding Method Indwelling Catheter Indwelling Catheter Indwelling Catheter - Exam General: non toxic, no distress, appears at stated age Derm: warm, dry Head: atraumatic, normocephalic, symmetric Eyes: EOMI, no lid lag, anicteric sclera Mouth: no lip lesion, mucus membranes moist Cardiovascular: S1S2 reg, no murmur, positive posterior tibial pulse bilateral, Lungs: Bilateral rhonchi, on 6 L nasal cannula Abdominal: soft, nontender to palpation, no guarding, no appreciable organomegaly Ext: no gross muscle atrophy, no edema, no contractures, flaccid paralysis of left lower extremity, has 2 drains on the left side Skin: Skin graft noted in the left hip area. Neuro: CN II-XI grossly intact, no focal neuro deficits Psych: Alert, oriented, appropriate affect - Labs CBC & Chem 7: 01/11/22 06:14 01/11/22 06:14 Labs: Abnormal Lab Results - Last 24 Hours (Table) 01/11/22 01/11/22 01/12/22 Range/Units 16:49 19:58 06:05 POC Glucose (mg/dL) 123 H 131 H 146 H (70-110) mg/dL 01/12/22 Range/Units 11:51 POC Glucose (mg/dL) 160 H (70-110) mg/dL Assessment and Plan Plan: Acute hypoxic respiratory failure Acute COVID-19 pneumonia -On supplemental oxygen currently requiring 4L, BiPAP as needed -Steroids -remdesivir -Duonebs -Pulmonology following 01/11 Seems to be more coarse on exam, will hold IV fluids and give one dose of lasix to keep on the dry side 01/12 Wean down O2 as tolerated. Finished remdisivir course. Wean down steroids as well. Will cut decadron to 3mg IV today. Recent provoked DVT - on eliquis Recent left hip skin flap surgery, infection -Continue meropenem, guardian not sure how long is supposed to be on this Dysphagia -Failed swallowing evaluation -PEG feeding tube placement attempted on 01/11, failed. -Will reattempt again on Friday. Mild hypernatremia -Resolved. Leukocytosis -Resolved. History of TBI History of developmental delay Dyslipidemia -Medications reviewed and reconciled DVT ppx: Eliquis Code status: Full code Anticipated discharge place: Home Anticipated discharge time: Pending clinical course
[2022-01-12 16:45] LABS: Glucose,Whole Blood 186 mg/dL (70-110)
[2022-01-12] MEDS: ATORVASTATIN 80 MG TAB PO SCH (20:01)
[2022-01-12] MEDS: INSULIN DETEMIR (LEVEMIR) 100 UNIT/ML SYR SQ SCH (20:12)
[2022-01-12 20:36] LABS: Glucose,Whole Blood 143 mg/dL (70-110)
[2022-01-12] MEDS ORDERED: MORPHINE SULFATE 2 MG/ML SYRINGE IVP STA (20:46)
[2022-01-12] MEDS ORDERED: ACETAMINOPHEN IV (For NPO) 1,000 MG in EMPTY BAG 1 BAG IVPB ONE (23:22)
[2022-01-13] MEDS: SENNOSIDES 8.6 MG TAB PO SCH ×5 (04:55→21:34)
[2022-01-13 06:22] LABS: Glucose,Whole Blood 138 mg/dL (70-110)
[2022-01-13] MEDS: ALBUTEROL HFA INHALER INHALATION SCH ×4 (07:12→20:49)
[2022-01-13] MEDS: DEXAMETHASONE SOD PHOSPHATE 4 MG/ML 1 ML VIAL IVP SCH (09:14)
[2022-01-13] MEDS: MEROPENEM 1 GM in SODIUM CHLORIDE 0.9% 100 ML IVPB SCH ×3 (09:14→23:18)
[2022-01-13 09:55] LABS: Appearance,Urine Turbid (Clear); Bacteria,Urine Rare /hpf; Bilirubin,Urine 1+ (Negative); Blood,Urine Large (Negative); Budding Yeast,Urine Many /hpf; Color,Urine Yellow; Glucose,Urine (UA) Negative (Negative); Ketones,Urine 4+ (Negative); Leukocyte Esterase,Urine Large (Negative); Mucus,Urine Few /hpf; Nitrite,Urine Negative (Negative); PH, Urine 5.5 (5.0-8.0); Protein,Urine 1+ (Negative); RBC,Urine >182 /hpf (0-5); Specific Gravity,Urine 1.025 (1.001-1.035); WBC,Urine >182 /hpf (0-5)
[2022-01-13] MEDS: GABAPENTIN 300 MG CAP PO SCH ×3 (10:19→21:33)
[2022-01-13] MEDS: lamoTRIgine 100 MG TAB PO SCH (10:19)
[2022-01-13] MEDS: polyethylene glycoL 3350 17 GM POWD.PACK PO SCH ×2 (10:19→21:33)
[2022-01-13] MEDS: MULTIVITAMINS, THERA 1 EACH TAB PO SCH (10:19)
[2022-01-13] MEDS: PANTOPRAZOLE 40 MG TABLET PO SCH ×2 (10:19→21:34)
--- NOTE | 2022-01-13 10:45 | P.PN ---
Subjective Progress Note Date: 01/13/22 Principal diagnosis: sob Patient had a fever to 1.2 last night, he was given 1 g of Tylenol. Fever subsided. When seen this am he denied shortness of breath or any pain. Objective - Vital Signs Vital signs: Vital Signs Temp 98.7 F 01/13/22 09:15 Pulse 97 01/13/22 09:15 Resp 19 01/13/22 09:15 BP 159/89 01/13/22 09:15 Pulse Ox 97 01/13/22 09:15 FiO2 50 01/12/22 11:26 Intake & Output 01/12/22 01/13/22 01/13/22 18:59 06:59 18:59 Output Total 500 555 Balance -500 -555 Weight 68.039 kg Output: Drainage 5 Left Hip 3 Left Thigh 2 Urine 500 550 Other: Voiding Method Indwelling Catheter Indwelling Catheter Indwelling Catheter - Exam General: non toxic, no distress, appears at stated age Derm: warm, dry Head: atraumatic, normocephalic, symmetric Eyes: EOMI, no lid lag, anicteric sclera Mouth: no lip lesion, mucus membranes moist Cardiovascular: S1S2 reg, no murmur, positive posterior tibial pulse bilateral, Lungs: Bilateral rhonchi, on 6 L nasal cannula Abdominal: soft, nontender to palpation, no guarding, no appreciable organomegaly Ext: no gross muscle atrophy, no edema, no contractures, flaccid paralysis of left lower extremity, has 2 drains on the left side Skin: Skin graft noted in the left hip area. Neuro: CN II-XI grossly intact, no focal neuro deficits Psych: Alert, oriented, appropriate affect - Labs CBC & Chem 7: 01/11/22 06:14 01/11/22 06:14 Labs: Abnormal Lab Results - Last 24 Hours (Table) 01/12/22 01/12/22 01/12/22 Range/Units 11:51 16:42 20:33 POC Glucose (mg/dL) 160 H 186 H 143 H (70-110) mg/dL Urine Protein (Negative) Urine Ketones (Negative) Urine Blood (Negative) Urine Bilirubin (Negative) Ur Leukocyte Esterase (Negative) Urine RBC (0-5) /hpf Urine WBC (0-5) /hpf Urine WBC Clumps (None) /hpf Urine Bacteria (None) /hpf Urine Mucus (None) /hpf Urine Yeast (Budding) (None) /hpf 01/13/22 01/13/22 Range/Units 06:20 09:15 POC Glucose (mg/dL) 138 H (70-110) mg/dL Urine Protein 1+ H (Negative) Urine Ketones 4+ H (Negative) Urine Blood Large H (Negative) Urine Bilirubin 1+ H (Negative) Ur Leukocyte Esterase Large H (Negative) Urine RBC >182 H (0-5) /hpf Urine WBC >182 H (0-5) /hpf Urine WBC Clumps Many H (None) /hpf Urine Bacteria Rare H (None) /hpf Urine Mucus Few H (None) /hpf Urine Yeast (Budding) Many H (None) /hpf Assessment and Plan Plan: Acute hypoxic respiratory failure Acute COVID-19 pneumonia -On supplemental oxygen currently requiring 4L, BiPAP as needed -Steroids -remdesivir -Duonebs -Pulmonology following 01/11 Seems to be more coarse on exam, will hold IV fluids and give one dose of lasix to keep on the dry side 01/12 Wean down O2 as tolerated. Finished remdisivir course. Wean down steroids as well. Decadron cut to 3mg IV 01/12. 01/13 Having recurrent fevers, will panculture again, he is already on meropenem for skin flap infection. Consult ID. Recent provoked DVT - on eliquis Recent left hip skin flap surgery, infection -Continue meropenem, guardian not sure how long is supposed to be on this Dysphagia -Failed swallowing evaluation -PEG feeding tube placement attempted on 01/11, failed due to esophageal strictures, these were dilated. -Will reattempt again on Friday per surgery. Mild hypernatremia -Resolved. Leukocytosis -Resolved. History of TBI History of developmental delay Dyslipidemia -Medications reviewed and reconciled DVT ppx: Eliquis Code status: Full code Anticipated discharge place: Home Anticipated discharge time: Pending clinical course
[2022-01-13 12:05] LABS: Glucose,Whole Blood 161 mg/dL (70-110)
[2022-01-13 13:15] LABS: ALT 23 U/L (4-49); AST 31 U/L (17-59); African American GFR (CKD) >90 (>60 ml/min/1.73 sqM); Albumin 3.5 g/dL (3.5-5.0); Alkaline Phosphatase 161 U/L (38-126); Anion Gap 13 mmol/L; Blood Urea Nitrogen 10 mg/dL (9-20); Calcium 8.4 mg/dL (8.4-10.2); Carbon Dioxide 23 mmol/L (22-30); Chloride 104 mmol/L (98-107); Glucose 156 mg/dL (74-99); Magnesium 1.7 mg/dL (1.6-2.3); Non-African American GFR(CKD) >90 (>60 ml/min/1.73 sqM); Potassium 3.9 mmol/L (3.5-5.1); Sodium 140 mmol/L (137-145); Total Bilirubin 0.6 mg/dL (0.2-1.3); Total Protein 6.4 g/dL (6.3-8.2)
--- NOTE | 2022-01-13 13:29 | P.PN ---
Subjective Progress Note Date: 01/13/22 Discussion with nursing reveals patient has moderate coughing spells. No emesis. Patient pending repeat upper endoscopy for esophageal stricture with dilation. Objective - Vital Signs Vital signs: Vital Signs Temp 98.7 F 01/13/22 09:15 Pulse 100 01/13/22 11:15 Resp 17 01/13/22 11:15 BP 162/86 01/13/22 11:15 Pulse Ox 94 L 01/13/22 11:15 FiO2 50 01/12/22 11:26 Intake & Output 01/12/22 01/13/22 01/13/22 18:59 06:59 18:59 Output Total 500 555 420 Balance -500 -555 -420 Weight 68.039 kg Output: Drainage 5 20 Left Hip 3 10 Left Thigh 2 10 Urine 500 550 400 Other: Voiding Method Indwelling Catheter Indwelling Catheter Indwelling Catheter - Labs CBC & Chem 7: 01/11/22 06:14 01/13/22 12:07 Labs: Abnormal Lab Results - Last 24 Hours (Table) 01/12/22 01/12/22 01/13/22 Range/Units 16:42 20:33 06:20 Creatinine (0.66-1.25) mg/dL Glucose (74-99) mg/dL POC Glucose (mg/dL) 186 H 143 H 138 H (70-110) mg/dL Alkaline Phosphatase (38-126) U/L Urine Protein (Negative) Urine Ketones (Negative) Urine Blood (Negative) Urine Bilirubin (Negative) Ur Leukocyte Esterase (Negative) Urine RBC (0-5) /hpf Urine WBC (0-5) /hpf Urine WBC Clumps (None) /hpf Urine Bacteria (None) /hpf Urine Mucus (None) /hpf Urine Yeast (Budding) (None) /hpf 01/13/22 01/13/22 01/13/22 Range/Units 09:15 12:04 12:07 Creatinine 0.34 L (0.66-1.25) mg/dL Glucose 156 H (74-99) mg/dL POC Glucose (mg/dL) 161 H (70-110) mg/dL Alkaline Phosphatase 161 H (38-126) U/L Urine Protein 1+ H (Negative) Urine Ketones 4+ H (Negative) Urine Blood Large H (Negative) Urine Bilirubin 1+ H (Negative) Ur Leukocyte Esterase Large H (Negative) Urine RBC >182 H (0-5) /hpf Urine WBC >182 H (0-5) /hpf Urine WBC Clumps Many H (None) /hpf Urine Bacteria Rare H (None) /hpf Urine Mucus Few H (None) /hpf Urine Yeast (Budding) Many H (None) /hpf
--- NOTE | 2022-01-13 13:40 | P.PN ---
Subjective Progress Note Date: 01/13/22 Principal diagnosis: acute hypoxic respiratory failure secondary to COVID-19 pneumonia, possible aspiration pneumonia This is a 51-year-old male patient with a history of CVA/TIA, diabetes mellitus, hyperlipidemia, depression, History of traumatic brain injury, paraplegia, developmental delay, recent DVT currently on Eliquis. He had developed increasing shortness of breath, cough and congestion and was seen at [facility] and found to have COVID-19 pneumonia and transferred here for the same. Outside CAT scan had revealed bilateral opacities and a small right lung n odule. The patient had previously been hospitalized to have a PICC line replaced. He's been receiving antibiotics for a left hip skin flap performed at [facility] a month ago. Following that is when he developed the DVT. If he is seen today in the emergency department. He is currently sitting up in bed. Awake and alert. He is currently on 10 L high flow nasal cannula with O2 saturations to 99 and 100%. This x-ray reveals a left basilar acute infiltrate/atelectasis. White count 11.6. Hemoglobin 9.6. Sodium 146. Potassium 4.3. BUN 14. Creatinine 0.42. Glucose 159. He's been initiated on Decadron. Continued on meropenem. Reevaluated today on 01/08/22, patient seems to be doing better today, breathing easier, remains on 6 L nasal cannula, patient is on Remdesivir, he is also maintained on Merrem for his previous hip infection.patient has leukocytosis with WBC of 15.6, hemoglobin is 9.9. D-dimer 0.81. Electrolytes are normal except for slightly elevated sodium. Renal profile is normal.again the patient is on 6 L nasal cannula, and his O2 sats is 95% Reevaluated today on 01/09/22, patient continues to do well, remains on Remdesivir, he is maintained on Merrem for his hip infection, no major issues in the last 24 hours, patient feels he is breathing a lot easier. He is only on 2 L nasal cannula and O2 saturation ranging between 92 up to 95%. CBC is unremarkable. Electrolytes are normal renal profile is normal Reevaluated today on 01/10/22, patient is doing fairly well, remains on 4 L nasal cannula, O2 saturation ranging between 93 and 96%. Patient had a swallow evaluation yesterday as he was noted to have choking on the food and liquids, he failed his swallow evaluation, and now he is being considered for PEG tube placement. He did have a low-grade temp yesterday 100.5. Remains on antibiotics, remains on the COVID-19 cocktail. CBC is relatively normal and basic metabolic profile is normal. Reevaluated today on 01/11/22, patient is on 3 L nasal cannula, doing well, not in any distress, patient is scheduled to have a PEG tube placed today. Remains on the COVID-19 cocktail. Remains on antibiotics. Overall the patient is doing better than expected. WBC count is 5.6 hemoglobin 8.4 lites are normal renal profile is normal Reevaluated today on 02/08/22, patient is doing well, however around 1 AM last night, patient was placed for some reason on BiPAP, his chest x-ray today is reassuring, he continues to have minimal left basilar opacity/consistent with pneumonia, but slightly improved compared to the admission chest x-ray. His O2 saturation on 3 L was 98%, apparently the patient felt more comfortable with the BiPAP 50% FiO2. However needs to be placed back on nasal cannula. Patient had uneventful PEG tube placement yesterday, and he will be started on enteral feeding likely today. Electrolytes are normal renal profile is normal CBC showed a low hemoglobin of 8.4 which is about his baseline Reevaluated today on 01/13/22, patient is doing well, I found out today that the patient did not have placement of the PEG tube, they could not have it placed, and is scheduled to have it done again tomorrow. In the meantime his pulmonary status is about the same, he remains on 3 L nasal cannula, and O2 saturations 94%. Patient is not in any distress chest x-ray from yesterday showed improvement in his infiltrates, he has minimal left basilar infiltrate. Patient remains on COVID-19 cocktail, remains on antibiotics patient has been on Merrem all along. Labs today were unremarkable, his urine seems to be infected, urine cultures are pending, urinalysis is highly suggestive of UTI Objective - Vital Signs Vital signs: Vital Signs Temp 98.7 F 01/13/22 09:15 Pulse 100 01/13/22 11:15 Resp 17 01/13/22 11:15 BP 162/86 01/13/22 11:15 Pulse Ox 94 L 12/04/22 11:15 FiO2 50 01/12/22 11:26 Intake & Output 01/12/22 01/13/22 01/13/22 18:59 06:59 18:59 Output Total 500 555 420 Balance -500 -555 -420 Weight 68.039 kg Output: Drainage 5 20 Left Hip 3 10 Left Thigh 2 10 Urine 500 550 400 Other: Voiding Method Indwelling Catheter Indwelling Catheter Indwelling Catheter - Exam GENERAL EXAM: 51-year-old white male, paraplegic, on 3 L nasal cannula, O2 saturations 94%. HEAD: Signs of previous trauma. Normocephalic. ENT: PERRLA, PA, anicteric, no neck masses, no JVD, no stridor. CHEST: No chest wall deformity. LUNGS: Crackles persist especially at the left base.. CVS: S1 and S2 normal with no audible murmur, regular rhythm. ABDOMEN: No hepatosplenomegaly, normal bowel sounds, no guarding or rigidity. SPINE: No scoliosis or deformity SKIN: Recent left hip flat with drains in place CENTRAL NERVOUS SYSTEM: No focal deficits, tone is normal in all 4 extremities. EXTREMITIES: Contracture lower extremities. Paraplegia. There is no peripheral edema. No clubbing, no cyanosis. Peripheral pulses are intact. - Labs CBC & Chem 7: 01/11/22 06:14 01/13/22 12:07 Labs: Abnormal Lab Results - Last 24 Hours (Table) 01/12/22 01/12/22 01/13/22 Range/Units 16:42 20:33 06:20 Creatinine (0.66-1.25) mg/dL Glucose (74-99) mg/dL POC Glucose (mg/dL) 186 H 143 H 138 H (70-110) mg/dL Alkaline Phosphatase (38-126) U/L Urine Protein (Negative) Urine Ketones (Negative) Urine Blood (Negative) Urine Bilirubin (Negative) Ur Leukocyte Esterase (Negative) Urine RBC (0-5) /hpf Urine WBC (0-5) /hpf Urine WBC Clumps (None) /hpf Urine Bacteria (None) /hpf Urine Mucus (None) /hpf Urine Yeast (Budding) (None) /hpf 01/13/22 01/13/22 01/13/22 Range/Units 09:15 12:04 12:07 Creatinine 0.34 L (0.66-1.25) mg/dL Glucose 156 H (74-99) mg/dL POC Glucose (mg/dL) 161 H (70-110) mg/dL Alkaline Phosphatase 161 H (38-126) U/L Urine Protein 1+ H (Negative) Urine Ketones 4+ H (Negative) Urine Blood Large H (Negative) Urine Bilirubin 1+ H (Negative) Ur Leukocyte Esterase Large H (Negative) Urine RBC >182 H (0-5) /hpf Urine WBC >182 H (0-5) /hpf Urine WBC Clumps Many H (None) /hpf Urine Bacteria Rare H (None) /hpf Urine Mucus Few H (None) /hpf Urine Yeast (Budding) Many H (None) /hpf Assessment and Plan Assessment: Impression Acute hypoxemic respiratory failure secondary to COVID-19 pneumonia. Finished a full course of Remdesivir. History of previous traumatic brain injury and paraplegia.Recent surgery to the left hip including a flap at the [facility] approximately one month ago and currently on meropenem [address] Postprocedure DVT, currently on Eliquis History of developmental delay possible aspiration pneumonia, PEG tube to be placed tomorrow. Apparently could not be placed yesterday. recommendation: Continue oxygen and titrate accordingly via nasal cannula Continue aspiration precaution Finished full course of Remdesivir. Continue Eliquis Continue Decadron continue Merrem PEG tube to be placed tomorrow. We will continue to follow Time with Patient: Less than 30
--- NOTE | 2022-01-13 13:48 | XR ---
EXAMINATION TYPE: XR pelvis AP view DATE OF EXAM: 01/13/2022 1:43 PM INDICATION: Patient age:Male; 51 years old; Reason for study: verify urinary catheter placement; COMPARISON: None TECHNIQUE: The pelvis was examined in a single projection. FINDINGS: Catheter tip projects over the pelvis. Displaced left humerus. There is no soft tissue abno rmality. No abnormal calcifications are present. Multilevel degenerative changes of the lower spine. IMPRESSION: 1. Catheter tip projects over the pelvis. Consider ultrasound for verification. 2. Displaced left humeral head out of the acetabulum. Correlate with history of trauma and clinical history.
[2022-01-13 14:08] LABS: Anisocytosis Moderate; Basophils # (A) 0.1 k/uL (0-0.2); Basophils % (A) 0 %; Eosinophils # (A) 0.1 k/uL (0-0.7); Eosinophils % (A) 1 %; HCT 33.1 % (39.0-53.0); HGB 9.7 gm/dL (13.0-17.5); Hypochromasia Marked; Lymphocytes # (A) 0.5 k/uL (1.0-4.8); Lymphocytes % (A) 4 %; MCH 24.3 pg (25.0-35.0); MCHC 29.4 g/dL (31.0-37.0); MCV 82.5 fL (80.0-100.0); Mean Platelet Volume 8.1; Microcytosis Slight; Monocytes # (A) 0.3 k/uL (0-1.0); Monocytes % (A) 3 %; Neutrophils # (A) 12.5 k/uL (1.3-7.7); Neutrophils % (A) 92 %; Platelet Count 462 k/uL (150-450); Poikilocytosis Slight; RBC 4.01 m/uL (4.30-5.90); RDW 21.2 % (11.5-15.5); WBC 13.6 k/uL (3.8-10.6)
--- NOTE | 2022-01-13 15:52 | US ---
EXAMINATION TYPE: US bladder DATE OF EXAM: 01/13/2022 COMPARISON: NONE CLINICAL HISTORY: confirm/verify samaniego placement. TECHNIQUE: Multiple sonographic images of the bladder are obtained. FINDINGS: Samaniego catheter visualized in bladder. Echogenic foci near tip of catheter 1.7 x 0.6 x 2.2cm. Bladder is not fully non-distended DOCUMENTATION MANAGER NOTES: Color Doppler performed to assess ureteral jets. Bilateral Jets seen: No IMPRESSION: There is shadowing mass in the dependent urinary bladder that could be a bladder stone measuring 1.7 cm. Samaniego catheter appears to be within the urinary bladder.
[2022-01-13 17:07] LABS: Glucose,Whole Blood 135 mg/dL (70-110)
[2022-01-13] MEDS: SODIUM CHLORIDE 0.9% 1,000 ML IV STA ×2 (17:08→23:18)
[2022-01-13 20:18] LABS: Glucose,Whole Blood 124 mg/dL (70-110)
[2022-01-13] MEDS: ATORVASTATIN 80 MG TAB PO SCH (21:32)
[2022-01-13] MEDS: ONDANSETRON 4 MG/2 ML VIAL IVP PRN (22:01)
[2022-01-13] MEDS: PANTOPRAZOLE 40 MG/10 ML VIAL IVP SCH (22:01)
--- NOTE | 2022-01-13 22:37 | P.CONS ---
History of Present Illness - Reason for Consult Consult date: 01/13/22 Fever/ID Requesting physician: Danika Ellsworth - Chief Complaint Fever 1 day - History of Present Illness Patient is a 51-year-old male with a past medical history taken for developmental delay CVA TIA diabetes mellitus hypertension depression traumatic brain injury apparently the patient recently did have a surgery done for possible left hip flap at [facility] status post surgical repair patient currently did have the drains in place and is getting IV meropenem through PICC line patient apparently was evaluated at [facility] for evalu ation of increasing shortness of breath and cough about a week ago patient was diagnosed with a covid19 and subsequently has been transferred to [facility] with the patient has been in the hospital for the last 1 week admission on 01/06/2022 and has been under care of the pulmonary and surgical services patient was afebrile on admission to the hospital however he did have a low- grade fever 100.7 F on 01/10/2022 and then he spiked another fever last night of 101.2 F infectious disease was consulted today after the patient has been hospital for more than a week for further management patient is currently receiving meropenem in the form of antibiotics patient did have a chronic indwelling Robins catheter not very clear on when his Robins catheter was placed however has not been changed since the patient has been in the hospital and the patient did have a significantly positive UA with some budding yeast patient also have elevated white count 13.6 chest x-ray completed yesterday morning similar airspace opacity, patient is currently breathing slightly comfortably the patient denies having any chest pain he did have a congested cough not bring any sputum no vomiting and no diarrhea has been reported Review of Systems Positive points has been mentioned in HPI complete review could not be obtained because of his underlying mental status Past Medical History Past Medical History: CVA/TIA, Diabetes Mellitus, Deep Vein Thrombosis (DVT), Eye Disorder, GERD/Reflux, Hearing Disorder / Deafness, Hyperlipidemia, Seizure Disorder, Sleep Apnea/CPAP/BIPAP Additional Past Medical History / Comment(s): Mentally challenged/poor decision making per pt's LG, last seizure (sister states d/t a reaction to an antibiotic) about 20 yrs ago, 1997 pt hit a horse and suffered TBI which caused parap legia/blindness and loss hearing in R ear, bilateral hip wounds sister states caused by rubbing in wheelchair, L hip osteomyelitis/L hip joint removed, recent skin flap to L hip wound at [facility] then had a critical event per sister/blood clot and shadow found in one lower lung/was transfered to ICU, mentation change/unable to eat/chokes since last hospitalization at [facility], IDC/colostomy for diversion, contipation, IDDM, recent issues with hypoglycemia, SUSAN with cpap, UTI, spinal cord cysts, compression fractures in spine, anemia. History of Any Multi-Drug Resistant Organisms: ESBL Year Discovered:: 05/17/19 MDRO Source:: CATH URINE Past Surgical History: Orthopedic Surgery Additional Past Surgical History / Comment(s): L hip skin flap, L hip joint removed, titanium plate in forehead, surgery for undescended testicle, colonoscopy. Past Anesthesia/Blood Transfusion Reactions: No Reported Reaction Additional Past Anesthesia/Blood Transfusion Reaction / Comm: Pt has received blood in past without reaction. Smoking Status: Never smoker - Past Family History Mother Family Medical History: Coronary Artery Disease (CAD), Diabetes Mellitus, Hypertension Additional Family Medical History / Comment(s): Rheumatic fever Father Family Medical History: Coronary Artery Disease (CAD) family Family Medical History: Unable to Obtain Medications and Allergies Home Medications Medication Instructions Recorded Confirmed Type Apixaban [Eliquis] 5 mg PO BID 01/07/22 01/07/22 History Ascorbic Acid [Vitamin C] 250 mg PO DAILY 01/07/22 01/07/22 History Atorvastatin [Lipitor] 80 mg PO HS 01/07/22 01/07/22 History Cholecalciferol (Vitamin D3) 125 mcg PO DAILY 01/07/22 01/07/22 History [Vitamin D3 (125 MCG = 5,000 IU)] Ferrous Sulfate [Iron (65 MG 325 mg PO DAILY 01/07/22 01/07/22 History Elemental)] Gabapentin 600 mg PO TID 01/07/22 01/07/22 History Insulin Glargine,Hum.rec.anlog 8 units SQ HS 01/07/22 01/07/22 History [Lantus Solostar Pen] Multivitamins, Thera [Multivitamin 1 tab PO DAILY 01/07/22 01/07/22 History (formulary)] Pantoprazole [Protonix] 40 mg PO BID 01/07/22 01/07/22 History Pyridoxine HCl (Vitamin B6) 100 mg PO DAILY 01/07/22 01/07/22 History [Vitamin B-6] lamoTRIgine [LaMICtal] 150 mg PO DAILY 01/07/22 01/07/22 History modafiniL [Provigil] 200 mg PO BID 01/07/22 01/07/22 History Acetaminophen Tab [Tylenol] 650 mg PO Q6HR PRN #60 tab 01/19/22 Rx Ibuprofen [Motrin] 400 mg PO Q6HR PRN #30 tab 01/19/22 Rx Sennosides [Senokot] 8.6 mg PO DAILY #30 tab 01/19/22 Rx Voriconazole [Vfend] 200 mg PO Q12HR #4 tab 01/19/22 Rx polyethylene glycoL 3350 [Miralax] 17 gm PO BID #30 packet 01/19/22 Rx Allergies Allergy/AdvReac Type Severity Reaction Status Date / Time clindamycin Allergy Unknown Verified 01/07/22 08:23 daptomycin Allergy Unknown Verified 01/07/22 08:23 hydrochlorothiazide Allergy Unknown Verified 01/07/22 08:23 latex Allergy Unknown Verified 01/07/22 08:23 levofloxacin [From Levaquin] Allergy Unknown Verified 01/07/22 08:23 metformin Allergy Unknown Verified 01/07/22 08:23 Penicillins Allergy Unknown Verified 01/07/22 08:23 pioglitazone [From Actos] Allergy Unknown Verified 01/07/22 08:23 tizanidine [From Zanaflex] Allergy Unknown Verified 01/07/22 08:23 tobramycin Allergy Unknown Verified 01/07/22 08:23 vancomycin Allergy Unknown Verified 01/07/22 08:23 Physical Exam Vitals: Vital Signs Temp Pulse Resp BP BP Pulse Ox 01/13/22 09:15 98.7 F 97 19 159/89 97 01/13/22 07:16 95 01/13/22 04:00 98.2 F 99 18 156/86 99 01/12/22 23:12 101.2 F H 103 H 20 135/92 96 01/12/22 20:00 98.8 F 104 H 18 175/101 161/91 97 01/12/22 16:00 108 H 18 132/78 98 01/12/22 12:25 98.6 F 66 18 149/79 96 Intake and Output 01/12/22 01/13/22 01/13/22 22:59 06:59 14:59 Output Total 200 355 Balance -200 -355 Output: Drainage 5 Left Hip 3 Left Thigh 2 Urine 200 350 Other: Voiding Method Indwelling Catheter Indwelling Catheter GENERAL DESCRIPTION: Middle-aged male lying in bed, no distress. No tachypnea or accessory muscle of respiration use. HEENT: Shows Pallor , no scleral icterus. Oral mucous membrane is dry. No pharyngeal erythema or thrush NECK: Trachea central, no thyromegaly. LUNGS: Unlabored breathing. Decreased breath sounds at the bases. HEART: S1, S2, regular rate and rhythm. No loud murmur ABDOMEN: Soft, no tenderness , guarding or rigidity, no organomegaly EXTREMITIES: No edema of feet. Left hip incision is intact he did have a drainage catheter with some serous fluid SKIN: No rash, no masses palpable. NEUROLOGICAL: The patient is lethargic but arousable, mood and affect normal. Results CBC & Chem 7: 01/18/22 07:56 01/18/22 07:56 Labs: Abnormal Lab Results - Last 24 Hours (Table) 01/12/22 01/12/22 01/12/22 Range/Units 11:51 16:42 20:33 POC Glucose (mg/dL) 160 H 186 H 143 H (70-110) mg/dL Urine Protein (Negative) Urine Ketones (Negative) Urine Blood (Negative) Urine Bilirubin (Negative) Ur Leukocyte Esterase (Negative) Urine RBC (0-5) /hpf Urine WBC (0-5) /hpf Urine WBC Clumps (None) /hpf Urine Bacteria (None) /hpf Urine Mucus (None) /hpf Urine Yeast (Budding) (None) /hpf 01/13/22 01/13/22 Range/Units 06:20 09:15 POC Glucose (mg/dL) 138 H (70-110) mg/dL Urine Protein 1+ H (Negative) Urine Ketones 4+ H (Negative) Urine Blood Large H (Negative) Urine Bilirubin 1+ H (Negative) Ur Leukocyte Esterase Large H (Negative) Urine RBC >182 H (0-5) /hpf Urine WBC >182 H (0-5) /hpf Urine WBC Clumps Many H (None) /hpf Urine Bacteria Rare H (None) /hpf Urine Mucus Few H (None) /hpf Urine Yeast (Budding) Many H (None) /hpf Assessment and Plan (1) Urinary tract infection Status: Acute Code(s): N39.0 - URINARY TRACT INFECTION, SITE NOT SPECIFIED SNOMED Code(s): 36035912 Plan: 1patient with sepsis in this patient with a fever elevated white count could be related to catheter associated tract infection in this patient with a chronic indwelling Robins catheter and did have significant positive UA with evidence of yeast. 2patient also have a infection to the left hip area this patient with recent muscle flap surgery and is getting meropenem however I do not have access to further information regarding their surgery on culture data 3patient with a covid19 infection overall respiratory status seems to be stable and improving pain no worsening pneumonia reported on the chest x-ray on 01/12/2022 4we will change his Robins catheter obtain urine culture from the new Robins 5we will empirically add Diflucan while waiting for the culture to finalize We will follow on clinical condition and cultures to further adjust medication if needed Thank you for this consultation will follow this patient along with you Time with Patient: Greater than 30
[2022-01-13] MEDS ORDERED: FLUCONAZOLE 100 MG TAB PO ONE (22:38)
[2022-01-14] MEDS: INSULIN DETEMIR (LEVEMIR) 100 UNIT/ML SYR SQ SCH ×2 (00:28→20:17)
[2022-01-14] MEDS ORDERED: FAMOTIDINE 20 MG/2 ML VIAL IV STA (00:28)
[2022-01-14] MEDS ORDERED: FLUCONAZOLE IN NACL,ISO-OSM 200 MG in SALINE 1 100ML.BAG IVPB ONE (00:30)
[2022-01-14] MEDS ORDERED: FLUCONAZOLE IN NACL,ISO-OSM 200 MG/100 ML BAG IVPB ONE (00:30)
[2022-01-14 06:07] LABS: Glucose,Whole Blood 161 mg/dL (70-110)
[2022-01-14 07:02] LABS: Appearance,Urine Cloudy (Clear); Bilirubin,Urine Negative (Negative); Blood,Urine Large (Negative); Color,Urine Light Red; Glucose,Urine (UA) Negative (Negative); Ketones,Urine 4+ (Negative); Leukocyte Esterase,Urine Large (Negative); Mucus,Urine Many /hpf; Nitrite,Urine Negative (Negative); Protein,Urine 2+ (Negative); RBC,Urine >182 /hpf (0-5); Specific Gravity,Urine 1.018 (1.001-1.035); Squamous Epithelial Cell,Urine 1 /hpf (0-4); WBC,Urine >182 /hpf (0-5)
[2022-01-14] MEDS: ALBUTEROL HFA INHALER INHALATION SCH ×3 (08:53→20:13)
[2022-01-14] MEDS ORDERED: FLUCONAZOLE IN NACL,ISO-OSM 100 MG/50 ML BAG IVPB SCH (09:00)
[2022-01-14] MEDS ORDERED: FLUCONAZOLE IN NACL,ISO-OSM 100 MG in SALINE 1 50ML.BAG IVPB SCH (09:00)
[2022-01-14] MEDS: GABAPENTIN 300 MG CAP PO SCH ×3 (09:06→20:09)
[2022-01-14] MEDS: lamoTRIgine 100 MG TAB PO SCH (09:06)
[2022-01-14] MEDS: polyethylene glycoL 3350 17 GM POWD.PACK PO SCH ×2 (09:07→20:09)
[2022-01-14] MEDS: MULTIVITAMINS, THERA 1 EACH TAB PO SCH (09:07)
[2022-01-14] MEDS: DEXAMETHASONE SOD PHOSPHATE 4 MG/ML 1 ML VIAL IVP SCH (09:12)
[2022-01-14] MEDS: PANTOPRAZOLE 40 MG/10 ML VIAL IVP SCH ×2 (09:12→20:23)
[2022-01-14] MEDS: MEROPENEM 1 GM in SODIUM CHLORIDE 0.9% 100 ML IVPB SCH ×3 (09:13→23:45)
--- NOTE | 2022-01-14 10:51 | P.GSCN ---
History of Present Illness Consult date: 01/14/22 Reason for Consult: Neurogenic bladder and retention Requesting physician: Julia Cook History of present illness: This is a 51-year-old male patient with a history of CVA/TIA, diabetes mellitus, hyperlipidemia, depression, History of traumatic brain injury, paraplegia, developmental delay, recent DVT currently on Eliquis. He had developed increasing shortness of breath, cough and congestion and was seen at [facility] and found to have COVID-19 pneumonia and transferred to our facility on 01/06/22. He is being followed by the pulmonary service and infectious disease. Patient also has concerns of aspirating. Patient failed his swallow study. He has hx of chronic urinary retention currently been managed with 22 fr samaniego. Samaniego was exchanged yesterday due to UTI. it was noted that the patient had gross hematuria, and minimal drainage from the catheter. Of note also patient has history of latex ALLERGY, latex Samaniego was placed. this a.m. the catheter is draining light red urine, but it is a latex Samaniego. Review of Systems - Constitutional Denies chills, Denies fever - EENT Ears, nose, mouth and throat: Denies headache - Cardiovascular Denies chest pain, Denies shortness of breath - Respiratory Reports cough - Gastrointestinal Denies nausea, Denies vomiting Past Medical History Past Medical History: CVA/TIA, Diabetes Mellitus, Deep Vein Thrombosis (DVT), Eye Disorder, GERD/Reflux, Hearing Disorder / Deafness, Hyperlipidemia, Seizure Disorder, Sleep Apnea/CPAP/BIPAP Additional Past Medical History / Comment(s): Mentally challenged/poor decision making per pt's LG, last seizure (sister states d/t a reaction to an antibiotic) about 20 yrs ago, 1997 pt hit a horse and suffered TBI which caused paraplegia/blindness and loss hearing in R ear, bilateral hip wounds sister states caused by rubbing in wheelchair, L hip osteomyelitis/L hip joint removed, recent skin flap to L hip wound at [facility] then had a critical event per sister/blood clot and shadow found in one lower lung/was transfered to ICU, mentation change/unable to eat/chokes since last hospitalization at [facility], IDC/colostomy for diversion, contipation, IDDM, recent issues with hypoglycemia, SUSAN with cpap, UTI, spinal cord cysts, compression fractures in spine, anemia. History of Any Multi-Drug Resistant Organisms: ESBL Year Discovered:: 05/17/19 MDRO Source:: CATH URINE Past Surgical History: Orthopedic Surgery Additional Past Surgical History / Comment(s): L hip skin flap, L hip joint removed, titanium plate in forehead, surgery for undescended testicle, colono scopy. Past Anesthesia/Blood Transfusion Reactions: No Reported Reaction Additional Past Anesthesia/Blood Transfusion Reaction / Comm: Pt has received blood in past without reaction. Smoking Status: Never smoker - Past Family History Mother Family Medical History: Coronary Artery Disease (CAD), Diabetes Mellitus, Hypertension Additional Family Medical History / Comment(s): Rheumatic fever Father Family Medical History: Coronary Artery Disease (CAD) family Family Medical History: Unable to Obtain Medications and Allergies Home Medications Medication Instructions Recorded Confirmed Type Alendronate Sodium 70 mg PO SA 01/07/22 01/07/22 History Apixaban [Eliquis] 5 mg PO BID 01/07/22 01/07/22 History Ascorbic Acid [Vitamin C] 250 mg PO DAILY 01/07/22 01/07/22 History Atorvastatin [Lipitor] 80 mg PO HS 01/07/22 01/07/22 History Baclofen 10 - 20 mg PO QID PRN 01/07/22 01/07/22 History Cholecalciferol (Vitamin D3) 125 mcg PO DAILY 01/07/22 01/07/22 History [Vitamin D3 (125 MCG = 5,000 IU)] Co Q-10 30mg 1 cap PO DAILY 01/07/22 01/07/22 History Docusate [Colace] 100 mg PO BID 01/07/22 01/07/22 History Ferrous Sulfate [Feosol] 325 mg PO DAILY 01/07/22 01/07/22 History Fluconazole [Diflucan] 200 mg PO DAILY 01/07/22 01/07/22 History Gabapentin 600 mg PO TID 01/07/22 01/07/22 History Insulin Glargine,Hum.rec.anlog 8 units SQ HS 01/07/22 01/07/22 History [Lantus Solostar Pen] Meloxicam [Mobic] 15 mg PO DAILY 01/07/22 01/07/22 History Meropenem [Merrem] 1 gm IV TID 01/07/22 01/07/22 History Metaxalone [Skelaxin] 400 mg PO BID 01/07/22 01/07/22 History Multivitamins, Thera [Multivitamin 1 tab PO DAILY 01/07/22 01/07/22 History (formulary)] Pantoprazole [Protonix] 40 mg PO BID 01/07/22 01/07/22 History Potassium Chloride Oral Liquid 10 meq PO DAILY 01/07/22 01/07/22 History Prucalopride Succinate [Motegrity] 2 mg PO DAILY 01/07/22 01/07/22 History Pyridoxine HCl (Vitamin B6) 100 mg PO DAILY 01/07/22 01/07/22 History [Vitamin B-6] Sennosides [Senokot] 8.6 mg PO 5XD 01/07/22 01/07/22 History Solifenacin Succinate [Vesicare] 10 mg PO DAILY 01/07/22 01/07/22 History amantadine HCL [Amantadine] 100 mg PO BID 01/07/22 01/07/22 History lamoTRIgine [LaMICtal] 150 mg PO DAILY 01/07/22 01/07/22 History modafiniL [Provigil] 200 mg PO BID 01/07/22 01/07/22 History polyethylene glycoL 3350 [Miralax] 17 gm PO BID 01/07/22 01/07/22 History tiZANidine [Zanaflex] 4 mg PO BID 01/07/22 01/07/22 History methylPREDNISolone Dose Pack 4 mg PO DIRECTED #21 tab 01/11/22 Rx [Medrol Dose Pack] Allergies Allergy/AdvReac Type Severity Reaction Status Date / Time clindamycin Allergy Unknown Verified 01/07/22 08:23 daptomycin Allergy Unknown Verified 01/07/22 08:23 hydrochlorothiazide Allergy Unknown Verified 01/07/22 08:23 latex Allergy Unknown Verified 01/07/22 08:23 levofloxacin [From Levaquin] Allergy Unknown Verified 01/07/22 08:23 metformin Allergy Unknown Verified 01/07/22 08:23 Penicillins Allergy Unknown Verified 01/07/22 08:23 pioglitazone [From Actos] Allergy Unknown Verified 01/07/22 08:23 tizanidine [From Zanaflex] Allergy Unknown Verified 01/07/22 08:23 tobramycin Allergy Unknown Verified 01/07/22 08:23 vancomycin Allergy Unknown Verified 01/07/22 08:23 Surgical - Exam Vital Signs Temp Pulse Resp BP Pulse Ox 98.9 F 109 H 22 140/96 98 01/06/22 22:55 01/06/22 22:55 01/06/22 22:55 01/06/22 22:55 01/06/22 22:55 General: Well developed, No acute distress. Chronically ill appearing HEENT: Head is atraumatic, normocephalic. Lungs: Respirations even and nonlabored. Abdomen/GI: Soft.No guarding, rigidity, or abdominal tenderness. : No suprapubic tenderness, normal phallus, nontender bilateral testicle. Skin: Warm and dry Neurologic: Awake and alert. Confused. No focal deficits. Results - Labs 01/14/22 11:05 01/14/22 11:05 Abnormal Lab Results - Last 24 Hours (Table) 01/13/22 01/13/22 01/13/22 Range/Units 12:04 12:07 12:07 WBC 13.6 H (3.8-10.6) k/uL RBC 4.01 L (4.30-5.90) m/uL Hgb 9.7 L (13.0-17.5) gm/dL Hct 33.1 L (39.0-53.0) % MCH 24.3 L (25.0-35.0) pg MCHC 29.4 L (31.0-37.0) g/dL RDW 21.2 H (11.5-15.5) % Plt Count 462 H (150-450) k/uL Neutrophils # 12.5 H (1.3-7.7) k/uL Lymphocytes # 0.5 L (1.0-4.8) k/uL Creatinine 0.34 L (0.66-1.25) mg/dL Glucose 156 H (74-99) mg/dL POC Glucose (mg/dL) 161 H (70-110) mg/dL Alkaline Phosphatase 161 H (38-126) U/L Urine Protein (Negative) Urine Ketones (Negative) Urine Blood (Negative) Ur Leukocyte Esterase (Negative) Urine RBC (0-5) /hpf Urine WBC (0-5) /hpf Urine WBC Clumps (None) /hpf Urine Mucus (None) /hpf 01/13/22 01/13/22 01/14/22 Range/Units 16:47 20:17 06:04 WBC (3.8-10.6) k/uL RBC (4.30-5.90) m/uL Hgb (13.0-17.5) gm/dL Hct (39.0-53.0) % MCH (25.0-35.0) pg MCHC (31.0-37.0) g/dL RDW (11.5-15.5) % Plt Count (150-450) k/uL Neutrophils # (1.3-7.7) k/uL Lymphocytes # (1.0-4.8) k/uL Creatinine (0.66-1.25) mg/dL Glucose (74-99) mg/dL POC Glucose (mg/dL) 135 H 124 H 161 H (70-110) mg/dL Alkaline Phosphatase (38-126) U/L Urine Protein (Negative) Urine Ketones (Negative) Urine Blood (Negative) Ur Leukocyte Esterase (Negative) Urine RBC (0-5) /hpf Urine WBC (0-5) /hpf Urine WBC Clumps (None) /hpf Urine Mucus (None) /hpf 01/14/22 Range/Units 06:40 WBC (3.8-10.6) k/uL RBC (4.30-5.90) m/uL Hgb (13.0-17.5) gm/dL Hct (39.0-53.0) % MCH (25.0-35.0) pg MCHC (31.0-37.0) g/dL RDW (11.5-15.5) % Plt Count (150-450) k/uL Neutrophils # (1.3-7.7) k/uL Lymphocytes # (1.0-4.8) k/uL Creatinine (0.66-1.25) mg/dL Glucose (74-99) mg/dL POC Glucose (mg/dL) (70-110) mg/dL Alkaline Phosphatase (38-126) U/L Urine Protein 2+ H (Negative) Urine Ketones 4+ H (Negative) Urine Blood Large H (Negative) Ur Leukocyte Esterase Large H (Negative) Urine RBC >182 H (0-5) /hpf Urine WBC >182 H (0-5) /hpf Urine WBC Clumps Occasional H (None) /hpf Urine Mucus Many H (None) /hpf Microbiology - Last 24 Hours (Table) 01/12/22 23:32 Blood Culture - Preliminary Blood No Growth after 24 hours 01/13/22 09:15 Urine Culture - Preliminary Urine,Voided Diabetes panel 01/13/22 Range/Units 12:07 Sodium 140 (137-145) mmol/L Potassium 3.9 (3.5-5.1) mmol/L Chloride 104 (98-107) mmol/L Carbon Dioxide 23 (22-30) mmol/L BUN 10 (9-20) mg/dL Creatinine 0.34 L (0.66-1.25) mg/dL Glucose 156 H (74-99) mg/dL Calcium 8.4 (8.4-10.2) mg/dL AST 31 (17-59) U/L ALT 23 (4-49) U/L Alkaline Phosphatase 161 H (38-126) U/L Total Protein 6.4 (6.3-8.2) g/dL Albumin 3.5 (3.5-5.0) g/dL Calcium panel 01/13/22 Range/Units 12:07 Calcium 8.4 (8.4-10.2) mg/dL Albumin 3.5 (3.5-5.0) g/dL Pituitary panel 01/13/22 Range/Units 12:07 Sodium 140 (137-145) mmol/L Potassium 3.9 (3.5-5.1) mmol/L Chloride 104 (98-107) mmol/L Carbon Dioxide 23 (22-30) mmol/L BUN 10 (9-20) mg/dL Creatinine 0.34 L (0.66-1.25) mg/dL Glucose 156 H (74-99) mg/dL Calcium 8.4 (8.4-10.2) mg/dL Adrenal panel 01/13/22 Range/Units 12:07 Sodium 140 (137-145) mmol/L Potassium 3.9 (3.5-5.1) mmol/L Chloride 104 (98-107) mmol/L Carbon Dioxide 23 (22-30) mmol/L BUN 10 (9-20) mg/dL Creatinine 0.34 L (0.66-1.25) mg/dL Glucose 156 H (74-99) mg/dL Calcium 8.4 (8.4-10.2) mg/dL Total Bilirubin 0.6 (0.2-1.3) mg/dL AST 31 (17-59) U/L ALT 23 (4-49) U/L Alkaline Phosphatase 161 H (38-126) U/L Total Protein 6.4 (6.3-8.2) g/dL Albumin 3.5 (3.5-5.0) g/dL - Imaging Abdominal x-ray: report reviewed US - kidney/bladder: report reviewed Assessment and Plan Assessment: The patient has a history of traumatic brain injury, paraplegia, and a chronic Samaniego catheter for a neurogenic bladder. The patient has had recurrent fevers with leukocytosis and is being followed by infectious disease. Per ID the patient's sepsis could be related to catheter associated tract infection with his chronic indwelling Samaniego catheter. He did have a significant positive UA with evidence of yeast. His blood cultures are negative and his urine culture is pending. Per ID's recommendation the Samaniego was exchanged yesterday. Unfortunately, the Samaniego catheter was replaced with one containing latex, despite the patient's latex ALLERGY. The nursing staff reported that the new Samaniego catheter was not draining. Today the patient is afebrile, his vitals are stable, and he is on 3 L O2. Labs from yesterday show a WBC of 13.6, his hemoglobin is stable at 9.7, and serum creatinine of 0.34. He knew latex free Samaniego catheter was inserted by Dr. Lacy today without difficulty. Hematuria and small clots were noted. The Samaniego catheter was irrigated and is draining well. (1) Neurogenic bladder Current Visit: Yes Status: Acute Code(s): N31.9 - NEUROMUSCULAR DYSFUNCTION OF BLADDER, UNSPECIFIED SNOMED Code(s): 072151117 (2) Urinary retention Current Visit: Yes Status: Acute Code(s): R33.9 - RETENTION OF URINE, UNSPECIFIED SNOMED Code(s): 539829449 Plan: - Urine culture pending - Antibiotics per ID recommendation - Monitor Samaniego catheter output - Irrigate Samaniego catheter as needed - Monitor hemoglobin -continue monthly catheter change Impression and plan of care have been directed as dictated by the signing physician. Alicia Nichols nurse practitioner acting as scribe for signing physician. Alicia Nichols [facility] Palliative Care/Urology [facility] [id number] Email: [email or web address] I personally performed and participated in the history, physical, the decision making, I agree with the assessment and plan of [employer]
[2022-01-14 11:43] LABS: Glucose,Whole Blood 161 mg/dL (70-110)
--- NOTE | 2022-01-14 11:44 | P.PN ---
Subjective Progress Note Date: 01/14/22 Principal diagnosis: SOB Hospital Course: 51-year-old male with history of CVA/TIA, intellectual disability, TBI, diabetes, dyslipidemia, depression, recent DVT provoked on Eliquis presenting with shortness of breath. Currently being treated for hypoxic respiratory failure secondary to COVID-19 pneumonia. Patient was recently hospitalized at [facility] for left hip skin/muscle flap reconstruction, infected, on meropenem. During that hospitalization he developed a DVT, now on Eliquis. Being treated with Decadron and Remdesivir (completed course). Patient has severe dysphagia and esophageal strictures. He underwent EGD with dilation on 12/13. Pending repeat EGD and PEG tube placement today. Pulmonology and infectious disease also following. Urology also consulted for neurogenic bladder and urinary retention. Subjective: Patient seen and examined at bedside. No acute events overnight. He claims that his shortness of breath has improved. He denies any chest pain, abdominal pain, nausea, vomiting, diarrhea, or constipation. He has a Samaniego cath in place. Pertinent positives and negatives as discussed above, a complete review of systems was performed and all other systems are negative. Vitals Signs Reviewed. General: non toxic, no distress, appears at stated age Derm: warm, dry Head: atraumatic, normocephalic, symmetric Eyes: EOMI, no lid lag, anicteric sclera Mouth: no lip lesion, mucus membranes moist Cardiovascular: S1S2 reg, no murmur, positive posterior tibial pulse bilateral, Lungs: Bilateral rhonchi, on 3 L nasal cannula Abdominal: soft, nontender to palpation, no guarding, no appreciable organomegaly Ext: no gross muscle atrophy, no edema, no contractures, flaccid paralysis of left lower extremity, has 2 drains on the left side Neuro: CN II-XI grossly intact, no focal neuro deficits Psych: Alert, oriented, appropriate affect Assessment and Plan: Acute hypoxic respiratory failure Acute COVID-19 pneumonia Febrile -On supplemental oxygen currently requiring 3L, BiPAP as needed -Steroids, cut to 3 mg IV on 01/12 -remdesivir completed course -Duonebs -Pulmonology following -also s/p IV lasix once -ID consulted Recent provoked DVT - holding eliquis for peg tube placement Recent left hip skin flap surgery, infection Leukocytosis -Continue meropenem, guardian not sure how long is supposed to be on this -ID consulted Dysphagia -Failed swallowing evaluation -PEG feeding tube placement attempted on 01/11, failed due to esophageal strictures, these were dilated. -Will reattempt again on Friday per surgery. Neurogenic bladder chronic urinary retention - UA showed yeast - has samaniego in place since admission - Ucx no growth - ID and urology following - on diflucan Mild hypernatremia -Resolved. History of TBI History of developmental delay Dyslipidemia -Medications reviewed and reconciled DVT ppx: SCDs Code status: Full code Anticipated discharge place: Home Anticipated discharge time: Pending clinical course Objective - Vital Signs Vital signs: Vital Signs Temp 98.3 F 01/14/22 08:00 Pulse 99 01/14/22 08:00 Resp 16 01/14/22 08:00 BP 143/73 01/14/22 08:00 Pulse Ox 97 01/14/22 08:00 FiO2 50 01/12/22 11:26 Intake & Output 01/13/22 01/14/22 01/14/22 18:59 06:59 18:59 Intake Total 1070 Output Total 520 430 0 Balance -520 640 0 Weight 80 kg Intake: IV 1070 Fluconazole in NaCl,Iso- 50 Osm 100 mg In Saline 1 50ml.bag @ 50 mls/hr IVPB DAILY JOSE ALEJANDRO Rx#:[id number] Invasive Line 8 20 Meropenem 1 gm In Sodium 100 Chloride 0.9% 100 ml @ 33 .3 mls/hr IVPB Q8HR JOSE ALEJANDRO Rx#:[id number] Sodium Chloride 0.9% 1, 900 000 ml @ 75 mls/hr IV . [id number] STA Rx#:[id number] Output: Drainage 20 0 0 Left Hip 10 0 0 Left Thigh 10 0 0 Urine 500 430 Uretheral (Samaniego) 100 200 Other: Voiding Method Indwelling Catheter Indwelling Catheter Indwelling Catheter - Labs CBC & Chem 7: 01/13/22 12:07 01/13/22 12:07 Labs: Abnormal Lab Results - Last 24 Hours (Table) 01/13/22 01/13/22 01/13/22 Range/Units 12:04 12: 12:07 WBC 13.6 H (3.8-10.6) k/uL RBC 4.01 L (4.30-5.90) m/uL Hgb 9.7 L (13.0-17.5) gm/dL Hct 33.1 L (39.0-53.0) % MCH 24.3 L (25.0-35.0) pg MCHC 29.4 L (31.0-37.0) g/dL RDW 21.2 H (11.5-15.5) % Plt Count 462 H (150-450) k/uL Neutrophils # 12.5 H (1.3-7.7) k/uL Lymphocytes # 0.5 L (1.0-4.8) k/uL Creatinine 0.34 L (0.66-1.25) mg/dL Glucose 156 H (74-99) mg/dL POC Glucose (mg/dL) 161 H (70-110) mg/dL Alkaline Phosphatase 161 H (38-126) U/L Urine Protein (Negative) Urine Ketones (Negative) Urine Blood (Negative) Ur Leukocyte Esterase (Negative) Urine RBC (0-5) /hpf Urine WBC (0-5) /hpf Urine WBC Clumps (None) /hpf Urine Mucus (None) /hpf 01/13/22 01/13/22 01/14/22 Range/Units 16:47 20:17 06:04 WBC (3.8-10.6) k/uL RBC (4.30-5.90) m/uL Hgb (13.0-17.5) gm/dL Hct (39.0-53.0) % MCH (25.0-35.0) pg MCHC (31.0-37.0) g/dL RDW (11.5-15.5) % Plt Count (150-450) k/uL Neutrophils # (1.3-7.7) k/uL Lymphocytes # (1.0-4.8) k/uL Creatinine (0.66-1.25) mg/dL Glucose (74-99) mg/dL POC Glucose (mg/dL) 135 H 124 H 161 H (70-110) mg/dL Alkaline Phosphatase (38-126) U/L Urine Protein (Negative) Urine Ketones (Negative) Urine Blood (Negative) Ur Leukocyte Esterase (Negative) Urine RBC (0-5) /hpf Urine WBC (0-5) /hpf Urine WBC Clumps (None) /hpf Urine Mucus (None) /hpf 01/14/22 01/14/22 Range/Units 06:40 11:41 WBC (3.8-10.6) k/uL RBC (4.30-5.90) m/uL Hgb (13.0-17.5) gm/dL Hct (39.0-53.0) % MCH (25.0-35.0) pg MCHC (31.0-37.0) g/dL RDW (11.5-15.5) % Plt Count (150-450) k/uL Neutrophils # (1.3-7.7) k/uL Lymphocytes # (1.0-4.8) k/uL Creatinine (0.66-1.25) mg/dL Glucose (74-99) mg/dL POC Glucose (mg/dL) 161 H (70-110) mg/dL Alkaline Phosphatase (38-126) U/L Urine Protein 2+ H (Negative) Urine Ketones 4+ H (Negative) Urine Blood Large H (Negative) Ur Leukocyte Esterase Large H (Negative) Urine RBC >182 H (0-5) /hpf Urine WBC >182 H (0-5) /hpf Urine WBC Clumps Occasional H (None) /hpf Urine Mucus Many H (None) /hpf Microbiology - Last 24 Hours (Table) 01/13/22 09:15 Urine Culture - Final Urine,Voided 01/12/22 23:32 Blood Culture - Preliminary Blood No Growth after 24 hours
[2022-01-14 11:51] LABS: African American GFR (CKD) >90 (>60 ml/min/1.73 sqM); Anion Gap 11 mmol/L; Blood Urea Nitrogen 7 mg/dL (9-20); C Reactive Protein 3.1 mg/dL (<1.0); Calcium 8.5 mg/dL (8.4-10.2); Carbon Dioxide 22 mmol/L (22-30); Chloride 109 mmol/L (98-107); Glucose 148 mg/dL (74-99); Non-African American GFR(CKD) >90 (>60 ml/min/1.73 sqM); Potassium 3.6 mmol/L (3.5-5.1); Sodium 142 mmol/L (137-145)
[2022-01-14 11:59] LABS: Anisocytosis Moderate; Basophils % (A) 0 %; Eosinophils # (A) 0.2 k/uL (0-0.7); Eosinophils % (A) 2 %; HCT 30.7 % (39.0-53.0); HGB 8.9 gm/dL (13.0-17.5); Hypochromasia Marked; Lymphocytes # (A) 0.5 k/uL (1.0-4.8); Lymphocytes % (A) 4 %; MCH 23.8 pg (25.0-35.0); MCHC 28.9 g/dL (31.0-37.0); MCV 82.3 fL (80.0-100.0); Mean Platelet Volume 8.3; Microcytosis Slight; Monocytes # (A) 0.4 k/uL (0-1.0); Monocytes % (A) 3 %; Neutrophils % (A) 90 %; Platelet Count 459 k/uL (150-450); Poikilocytosis Slight; RBC 3.73 m/uL (4.30-5.90); RDW 21.4 % (11.5-15.5); WBC 12.1 k/uL (3.8-10.6)
[2022-01-14] MEDS: SENNOSIDES 8.6 MG TAB PO SCH ×4 (12:31→23:45)
--- NOTE | 2022-01-14 12:41 | P.CONS ---
History of Present Illness - Reason for Consult Consult date: 01/14/22 wound care - History of Present Illness This is a 51-year-old patient being seen by the wound care center on for nonhealing ulceration to the left thigh. Patient previously had skin grafting to the area and recently started to have irritation and a open ulceration. Patient has multiple ulcerations to the left lateral thigh with eschar and minimal granulation noted to the site. No tunneling or undermining noted. Periwound shows mild irritation. Patient's past medical history significant for diabetes, CVA, DVT, hyperlipidemia, seizure, sleep apnea Review Of Systems: Constitutional: No fever, no chills, no night sweats. No weight change. No weakness, fatigue or lethargy. No daytime sleepiness. Integumentary:reports wounds, no lesions. No rash or pruritus. No unusual bruising. No change in hair or nails. Physical exam: General Appearance: Alert, cooperative, no distress, appears stated age. Skin: See HPI all other Skin color, texture, tugor normal, no rashes or lesions. Neurologic: Alert oriented x3 Assessment: 1. Nonhealing ulceration of left thigh with fat layer exposure 2. Diabetes with skin ulceration Plan: 1.Left thigh: Apply honey alginate, saline moistened gauze, dry gauze, ABDs and secured with tape. Patient would benefit from advance wound care from the wound care clinic. We will be happy to see him in the wound care clinic upon discharge. Thank you for the consultation any questions please contact the wound care center DNP note has been reviewed and discussed with Dr. Murcia and the impression and plan of care has been directed as dictated. Past Medical History Past Medical History: CVA/TIA, Diabetes Mellitus, Deep Vein Thrombosis (DVT), Eye Disorder, GERD/Reflux, Hearing Disorder / Deafness, Hyperlipidemia, Seizure Disorder, Sleep Apnea/CPAP/BIPAP Additional Past Medical History / Comment(s): Mentally challenged/poor decision making per pt's LG, last seizure (sister states d/t a reaction to an antibiotic) about 20 yrs ago, 1997 pt hit a horse and suffered TBI which caused paraplegia/ blindness and loss hearing in R ear, bilateral hip wounds sister states caused by rubbing in wheelchair, L hip osteomyelitis/L hip joint removed, recent skin flap to L hip wound at [facility] then had a critical event per sister/blood clot and shadow found in one lower lung/was transfered to ICU, mentation change/unable to eat/chokes since last hospitalization at [facility], IDC/colostomy for diversion, contipation, IDDM, recent issues with hypoglycemia, SUSAN with cpap, UTI, spinal cord cysts, compression fractures in spine, anemia. History of Any Multi-Drug Resistant Organisms: ESBL Year Discovered:: 05/17/19 MDRO Source:: CATH URINE Past Surgical History: Orthopedic Surgery Additional Past Surgical History / Comment(s): L hip skin flap, L hip joint removed, titanium plate in forehead, surgery for undescended testicle, colonoscopy. Past Anesthesia/Blood Transfusion Reactions: No Reported Reaction Additional Past Anesthesia/Blood Transfusion Reaction / Comm: Pt has received blood in past without reaction. Smoking Status: Never smoker - Past Family History Mother Family Medical History: Coronary Artery Disease (CAD), Diabetes Mellitus, H ypertension Additional Family Medical History / Comment(s): Rheumatic fever Father Family Medical History: Coronary Artery Disease (CAD) family Family Medical History: Unable to Obtain Medications and Allergies Home Medications Medication Instructions Recorded Confirmed Type Alendronate Sodium 70 mg PO SA 01/07/22 01/07/22 History Apixaban [Eliquis] 5 mg PO BID 01/07/22 01/07/22 History Ascorbic Acid [Vitamin C] 250 mg PO DAILY 01/07/22 01/07/22 History Atorvastatin [Lipitor] 80 mg PO HS 01/07/22 01/07/22 History Baclofen 10 - 20 mg PO QID PRN 01/07/22 01/07/22 History Cholecalciferol (Vitamin D3) 125 mcg PO DAILY 01/07/22 01/07/22 History [Vitamin D3 (125 MCG = 5,000 IU)] Co Q-10 30mg 1 cap PO DAILY 01/07/22 01/07/22 History Docusate [Colace] 100 mg PO BID 01/07/22 01/07/22 History Ferrous Sulfate [Feosol] 325 mg PO DAILY 01/07/22 01/07/22 History Fluconazole [Diflucan] 200 mg PO DAILY 01/07/22 01/07/22 History Gabapentin 600 mg PO TID 01/07/22 01/07/22 History Insulin Glargine,Hum.rec.anlog 8 units SQ HS 01/07/22 01/07/22 History [Lantus Solostar Pen] Meloxicam [Mobic] 15 mg PO DAILY 01/07/22 01/07/22 History Meropenem [Merrem] 1 gm IV TID 01/07/22 01/07/22 History Metaxalone [Skelaxin] 400 mg PO BID 01/07/22 01/07/22 History Multivitamins, Thera [Multivitamin 1 tab PO DAILY 01/07/22 01/07/22 History (formulary)] Pantoprazole [Protonix] 40 mg PO BID 01/07/22 01/07/22 History Potassium Chloride Oral Liquid 10 meq PO DAILY 01/07/22 01/07/22 History Prucalopride Succinate [Motegrity] 2 mg PO DAILY 01/07/22 01/07/22 History Pyridoxine HCl (Vitamin B6) 100 mg PO DAILY 01/07/22 01/07/22 History [Vitamin B-6] Sennosides [Senokot] 8.6 mg PO 5XD 01/07/22 01/07/22 History Solifenacin Succinate [Vesicare] 10 mg PO DAILY 01/07/22 01/07/22 History amantadine HCL [Amantadine] 100 mg PO BID 01/07/22 01/07/22 History lamoTRIgine [LaMICtal] 150 mg PO DAILY 01/07/22 01/07/22 History modafiniL [Provigil] 200 mg PO BID 01/07/22 01/07/22 History polyethylene glycoL 3350 [Miralax] 17 gm PO BID 01/07/22 01/07/22 History tiZANidine [Zanaflex] 4 mg PO BID 01/07/22 01/07/22 History methylPREDNISolone Dose Pack 4 mg PO DIRECTED #21 tab 01/11/22 Rx [Medrol Dose Pack] Allergies Allergy/AdvReac Type Severity Reaction Status Date / Time clindamycin Allergy Unknown Verified 01/07/22 08:23 daptomycin Allergy Unknown Verified 01/07/22 08:23 hydrochlorothiazide Allergy Unknown Verified 01/07/22 08:23 latex Allergy Unknown Verified 01/07/22 08:23 levofloxacin [From Levaquin] Allergy Unknown Verified 01/07/22 08:23 metformin Allergy Unknown Verified 01/07/22 08:23 Penicillins Allergy Unknown Verified 01/07/22 08:23 pioglitazone [From Actos] Allergy Unknown Verified 01/07/22 08:23 tizanidine [From Zanaflex] Allergy Unknown Verified 01/07/22 08:23 tobramycin Allergy Unknown Verified 01/07/22 08:23 vancomycin Allergy Unknown Verified 01/07/22 08:23 Physical Exam Vitals: Vital Signs Temp Pulse Resp BP Pulse Ox 01/14/22 11:25 98.9 F 94 18 133/72 99 01/14/22 08:00 98.3 F 99 16 143/73 97 01/14/22 05:00 98.9 F 85 18 147/82 98 01/13/22 23:13 98.6 F 84 18 159/92 97 01/13/22 20:05 98.4 F 86 18 151/83 96 01/13/22 15:35 98.3 F 73 18 157/74 96 Intake and Output 01/13/22 01/14/22 01/14/22 22:59 06:59 14:59 Intake Total 10 1060 Output Total 100 330 0 Balance -90 730 0 Intake: IV 10 1060 Fluconazole in NaCl,Iso- 50 Osm 100 mg In Saline 1 50ml.bag @ 50 mls/hr IVPB DAILY [facility] Rx#:[id number] Invasive Line 8 10 10 Meropenem 1 gm In Sodium 100 Chloride 0.9% 100 ml @ 33 .3 mls/hr IVPB Q8HR [facility] Rx#:[id number] Sodium Chloride 0.9% 1, 900 000 ml @ 75 mls/hr IV . [id number] [facility] Rx#:[id number] Output: Drainage 0 0 0 Left Hip 0 0 0 Left Thigh 0 0 0 Urine 100 330 Uretheral (Robins) 200 Other: Voiding Method Indwelling Catheter Indwelling Catheter Indwelling Catheter Weight 80 kg Results CBC & Chem 7: 01/14/22 11:05 01/14/22 11:05 Labs: Abnormal Lab Results - Last 24 Hours (Table) 01/13/22 01/13/22 01/13/22 Range/Units 12:07 12:07 16:47 WBC 13.6 H (3.8-10.6) k/uL RBC 4.01 L (4.30-5.90) m/uL Hgb 9.7 L (13.0-17.5) gm/dL Hct 33.1 L (39.0-53.0) % MCH 24.3 L (25.0-35.0) pg MCHC 29.4 L (31.0-37.0) g/dL RDW 21.2 H (11.5-15.5) % Plt Count 462 H (150-450) k/uL Neutrophils # 12.5 H (1.3-7.7) k/uL Lymphocytes # 0.5 L (1.0-4.8) k/uL Chloride (98-107) mmol/L BUN (9-20) mg/dL Creatinine 0.34 L (0.66-1.25) mg/dL Glucose 156 H (74-99) mg/dL POC Glucose (mg/dL) 135 H (70-110) mg/dL Alkaline Phosphatase 161 H (38-126) U/L C-Reactive Protein (<1.0) mg/dL Urine Protein (Negative) Urine Ketones (Negative) Urine Blood (Negative) Ur Leukocyte Esterase (Negative) Urine RBC (0-5) /hpf Urine WBC (0-5) /hpf Urine WBC Clumps (None) /hpf Urine Mucus (None) /hpf 01/13/22 01/14/22 01/14/22 Range/Units 20:17 06:04 06:40 WBC (3.8-10.6) k/uL RBC (4.30-5.90) m/uL Hgb (13.0-17.5) gm/dL Hct (39.0-53.0) % MCH (25.0-35.0) pg MCHC (31.0-37.0) g/dL RDW (11.5-15.5) % Plt Count (150-450) k/uL Neutrophils # (1.3-7.7) k/uL Lymphocytes # (1.0-4.8) k/uL Chloride (98-107) mmol/L BUN (9-20) mg/dL Creatinine (0.66-1.25) mg/dL Glucose (74-99) mg/dL POC Glucose (mg/dL) 124 H 161 H (70-110) mg/dL Alkaline Phosphatase (38-126) U/L C-Reactive Protein (<1.0) mg/dL Urine Protein 2+ H (Negative) Urine Ketones 4+ H (Negative) Urine Blood Large H (Negative) Ur Leukocyte Esterase Large H (Negative) Urine RBC >182 H (0-5) /hpf Urine WBC >182 H (0-5) /hpf Urine WBC Clumps Occasional H (None) /hpf Urine Mucus Many H (None) /hpf 01/14/22 01/14/22 01/14/22 Range/Units 11:05 11:05 11:41 WBC 12.1 H (3.8-10.6) k/uL RBC 3.73 L (4.30-5.90) m/uL Hgb 8.9 L (13.0-17.5) gm/dL Hct 30.7 L (39.0-53.0) % MCH 23.8 L (25.0-35.0) pg MCHC 28.9 L (31.0-37.0) g/dL RDW 21.4 H (11.5-15.5) % Plt Count 459 H (150-450) k/uL Neutrophils # 11.0 H (1.3-7.7) k/uL Lymphocytes # 0.5 L (1.0-4.8) k/uL Chloride 109 H (98-107) mmol/L BUN 7 L (9-20) mg/dL Creatinine 0.31 L (0.66-1.25) mg/dL Glucose 148 H (74-99) mg/dL POC Glucose (mg/dL) 161 H (70-110) mg/dL Alkaline Phosphatase (38-126) U/L C-Reactive Protein 3.1 H (<1.0) mg/dL Urine Protein (Negative) Urine Ketones (Negative) Urine Blood (Negative) Ur Leukocyte Esterase (Negative) Urine RBC (0-5) /hpf Urine WBC (0-5) /hpf Urine WBC Clumps (None) /hpf Urine Mucus (None) /hpf Microbiology - Last 24 Hours (Table) 01/13/22 09:15 Urine Culture - Final Urine,Voided 01/12/22 23:32 Blood Culture - Preliminary Blood No Growth after 24 hours Assessment and Plan (1) Non-pressure chronic ulcer of left thigh with fat layer exposed Current Visit: Yes Status: Acute Code(s): L97.122 - NON-PRESSURE CHRONIC ULCER OF LEFT THIGH W FAT LAYER EXPOSED SNOMED Code(s): 37133292032900959 (2) Type 2 diabetes mellitus with other skin ulcer Current Visit: Yes Status: Acute Code(s): E11.622 - TYPE 2 DIABETES MELLITUS WITH OTHER SKIN ULCER; L98.499 - NON-PRESSURE CHRONIC ULCER OF SKIN OF SITES W UNSP SEVERITY SNOMED Code(s): 048908322
--- NOTE | 2022-01-14 14:28 | P.PN ---
Subjective Progress Note Date: 01/14/22 Principal diagnosis: Shortness of breath. Reevaluated today on 01/11/22, patient is on 3 L nasal cannula, doing well, not in any distress, patient is scheduled to have a PEG tube placed today. Remains on the COVID-19 cocktail. Remains on antibiotics. Overall the patient is doing better than expected. WBC count is 5.6 hemoglobin 8.4 lites are normal renal profile is normal Reevaluated today on 02/08/22, patient is doing well, however around 1 AM last night, patient was placed for some reason on BiPAP, his chest x-ray today is reassuring, he continues to have minimal left basilar opacity/consistent with pneumonia, but slightly improved compared to the admission chest x-ray. His O2 saturation on 3 L was 98%, apparently the patient felt more comfortable with the BiPAP 50% FiO2. However needs to be placed back on nasal cannula. Patient had uneventful PEG tube placement yesterday, and he will be started on enteral feeding likely today. Electrolytes are normal renal profile is normal CBC showed a low hemoglobin of 8.4 which is about his baseline Reevaluated today on 01/13/22, patient is doing well, I found out today that the patient did not have placement of the PEG tube, they could not have it placed, and is scheduled to have it done again tomorrow. In the meantime his pulmonary status is about the same, he remains on 3 L nasal cannula, and O2 saturations 94%. Patient is not in any distress chest x-ray from yesterday showed improvement in his infiltrates, he has minimal left basilar infiltrate. Patient remains on COVID-19 cocktail, remains on antibiotics patient has been on Merrem all along. Labs today were unremarkable, his urine seems to be infected, urine cultures are pending, urinalysis is highly suggestive of UTI Progress note dated 01/14/2022. The patient appears to be doing relatively well. He seen again in room 352. He's currently on 3 L of oxygen. Saturations are 99%. He is getting saline at 50 mL an hour. There is no audible wheezing, use of accessory muscles, or conversational dyspnea. The patient's on meropenem, and fluconazole. White count 12.1, hemoglobin 8.9, hematocrit 30.7, platelet count 459,000. Sodium 142, potassium 3.6, chlorides 109, CO2 22, BUN 7, creatinine 0.31. Urine suggested urinary tract infection. Objective - Vital Signs Vital signs: Vital Signs Temp 98.9 F 01/14/22 11:25 Pulse 94 01/14/22 11:25 Resp 18 01/14/22 11:25 BP 133/72 01/14/22 11:25 Pulse Ox 99 01/14/22 11:25 FiO2 50 01/12/22 11:26 Intake & Output 01/13/22 01/14/22 01/14/22 18:59 06:59 18:59 Intake Total 1070 Output Total 520 430 0 Balance -520 640 0 Weight 80 kg 80 kg Intake: IV 1070 Fluconazole in NaCl,Iso- 50 Osm 100 mg In Saline 1 50ml.bag @ 50 mls/hr IVPB DAILY [facility] Rx#:[id number] Invasive Line 8 20 Meropenem 1 gm In Sodium 100 Chloride 0.9% 100 ml @ 33 .3 mls/hr IVPB Q8HR [facility] Rx#:[id number] Sodium Chloride 0.9% 1, 900 000 ml @ 75 mls/hr IV . [id number] [facility] Rx#:[id number] Output: Drainage 20 0 0 Left Hip 10 0 0 Left Thigh 10 0 0 Urine 500 430 Uretheral (Robins) 100 200 Other: Voiding Method Indwelling Catheter Indwelling Catheter Indwelling Catheter - Exam No acute distress, oriented 3. Currently on 3 L of oxygen. HEENT examination is grossly unremarkable. Evidence of previous trauma noted. Neck supple. Full range of motion. No adenopathy thyromegaly or neck vein distention. Cardiovascular examination reveals regular rhythm rate. S1-S2 normal. No S3 or S4. No discernible murmur noted. Lungs reveal crackles at the left base. No rhonchi. No wheezes. Saturations are excellent. Abdomen soft bowel sounds are heard. No masses or tenderness. Extremities reveal patient to be paraplegic. No cyanosis or clubbing. Skin is without rash or lesion. Neurologic examination as above. - Labs CBC & Chem 7: 01/14/22 11:05 01/14/22 11:05 Labs: Abnormal Lab Results - Last 24 Hours (Table) 01/13/22 01/13/22 01/14/22 Range/Units 16:47 20:17 06:04 WBC (3.8-10.6) k/uL RBC (4.30-5.90) m/uL Hgb (13.0-17.5) gm/dL Hct (39.0-53.0) % MCH (25.0-35.0) pg MCHC (31.0-37.0) g/dL RDW (11.5-15.5) % Plt Count (150-450) k/uL Neutrophils # (1.3-7.7) k/uL Lymphocytes # (1.0-4.8) k/uL Chloride (98-107) mmol/L BUN (9-20) mg/dL Creatinine (0.66-1.25) mg/dL Glucose (74-99) mg/dL POC Glucose (mg/dL) 135 H 124 H 161 H (70-110) mg/dL C-Reactive Protein (<1.0) mg/dL Urine Protein (Negative) Urine Ketones (Negative) Urine Blood (Negative) Ur Leukocyte Esterase (Negative) Urine RBC (0-5) /hpf Urine WBC (0-5) /hpf Urine WBC Clumps (None) /hpf Urine Mucus (None) /hpf 01/14/22 01/14/22 01/14/22 Range/Units 06:40 11:05 11:05 WBC 12.1 H (3.8-10.6) k/uL RBC 3.73 L (4.30-5.90) m/uL Hgb 8.9 L (13.0-17.5) gm/dL Hct 30.7 L (39.0-53.0) % MCH 23.8 L (25.0-35.0) pg MCHC 28.9 L (31.0-37.0) g/dL RDW 21.4 H (11.5-15.5) % Plt Count 459 H (150-450) k/uL Neutrophils # 11.0 H (1.3-7.7) k/uL Lymphocytes # 0.5 L (1.0-4.8) k/uL Chloride 109 H (98-107) mmol/L BUN 7 L (9-20) mg/dL Creatinine 0.31 L (0.66-1.25) mg/dL Glucose 148 H (74-99) mg/dL POC Glucose (mg/dL) (70-110) mg/dL C-Reactive Protein 3.1 H (<1.0) mg/dL Urine Protein 2+ H (Negative) Urine Ketones 4+ H (Negative) Urine Blood Large H (Negative) Ur Leukocyte Esterase Large H (Negative) Urine RBC >182 H (0-5) /hpf Urine WBC >182 H (0-5) /hpf Urine WBC Clumps Occasional H (None) /hpf Urine Mucus Many H (None) /hpf 01/14/22 Range/Units 11:41 WBC (3.8-10.6) k/uL RBC (4.30-5.90) m/uL Hgb (13.0-17.5) gm/dL Hct (39.0-53.0) % MCH (25.0-35.0) pg MCHC (31.0-37.0) g/dL RDW (11.5-15.5) % Plt Count (150-450) k/uL Neutrophils # (1.3-7.7) k/uL Lymphocytes # (1.0-4.8) k/uL Chloride (98-107) mmol/L BUN (9-20) mg/dL Creatinine (0.66-1.25) mg/dL Glucose (74-99) mg/dL POC Glucose (mg/dL) 161 H (70-110) mg/dL C-Reactive Protein (<1.0) mg/dL Urine Protein (Negative) Urine Ketones (Negative) Urine Blood (Negative) Ur Leukocyte Esterase (Negative) Urine RBC (0-5) /hpf Urine WBC (0-5) /hpf Urine WBC Clumps (None) /hpf Urine Mucus (None) /hpf Microbiology - Last 24 Hours (Table) 01/13/22 09:15 Urine Culture - Final Urine,Voided 01/12/22 23:32 Blood Culture - Preliminary Blood No Growth after 24 hours Assessment and Plan Assessment: Acute hypoxemic respiratory failure, secondary to coronavirus associated pneumonia. History of previous traumatic brain injury and paraplegia. Recent surgery to the left hip, and subsequent post-procedure DVT. History of developmental delay. History of possible aspiration pneumonia. Possible urinary tract infection. Plan: Plan dated 01/14/2022. The patient continues on oxygen. He is on 3 L. Saturations are 99%. Use with aspiration precautions. The patient did complete a full course of REM the patient continues on factor X a inhibitor. The patient also continues on Decadron. The patient is on meropenem, and fluconazole. Additional recommendations and suggestions are forthcoming. PEG tube to be placed. Time with Patient: Less than 30
[2022-01-14] MEDS ORDERED: LIDOCAINE 2% INJ 20 MG/ML (2 ML VIAL) ONE (15:09)
[2022-01-14] MEDS ORDERED: PROPOFOL 10 MG/ML 20 ML VIAL IV ONE (15:09)
[2022-01-14] MEDS ORDERED: IV FLUID CONTINUATION 1,000 ML IV ONE ×2 (15:13)
--- NOTE | 2022-01-14 15:55 | P.PCN ---
Date of Procedure: 01/14/22 Procedure(s) Performed: PREOPERATIVE DIAGNOSIS: Malnutrition, dysphagia POSTOPERATIVE DIAGNOSIS: Hiatal hernia, gastric polyps, distal esophagitis, esophageal stricture PROCEDURE: EGD with PEG tube placement, biopsy, and esophageal dilation SURGEON: Ehsan EBL: Minimal ANESTHESIA: Sedation COMPLICATIONS: None OPERATIVE PROCEDURE: The patient was placed in the supine position on the endoscopy table. The patient was sedated per anesthesia that time. The Olympus gastroscope was inserted into the oropharynx and passed under direct visualization to the site of the esophageal stricture. Initially this was thought to be in the mid esophagus but it turned out that this was only about 5 cm proximal to the GE junction. Sequential dilation took place at 10, 11, and 12 mm for 1 minute each. A superficial serosal tear was seen after the 11 mm stretch. After the 12 mm stretch we were able to pass the scope into the stomach. The duodenum was inspected. No abnormalities were present. The pylorus was patent. There was no significant gastric inflammation. Multiple small polyps were seen and biopsies taken. At the GE junction itself there was noted to be circumferential inflammatory changes. A biopsy of the GE junction took place. Again the stricture was present about 3-5 cm proximal to that p oint. Circumferential inflammatory changes throughout the distal and mid esophagus were noted. This did not appear malignant. The light was seen shining through the abdominal wall in the left upper quadrant. This site was chosen for PEG tube placement. The area was prepped in the usual sterile fashion. This area was then localized with lidocaine. No air was evident when aspirating while advancing the localizing needle into the stomach until the stomach was reached. A small vertical incision was made using the scalpel. The Seldinger needle was advanced into the lumen of the stomach the wire was advanced. The wire was grasped with an endoscopic snare. The wire was pulled through the oropharynx. The catheter was then threaded over the guidewire and the guidewire and catheter were pulled anteriorly until the hub of the PEG tube catheter was seated against the anterior wall the stomach. The circular bolster was applied and tightened down. The endoscope was then readvanced into the stomach. There was no evidence of any bleeding and there was appropriate tightness on the bolster. The catheter was cut appropriately. The dual port feeding adapter was applied. DISPOSITION: Stable to recovery room
[2022-01-14 16:42] LABS: Glucose,Whole Blood 181 mg/dL (70-110)
[2022-01-14 19:44] LABS: Glucose,Whole Blood 146 mg/dL (70-110)
[2022-01-14] MEDS: ATORVASTATIN 80 MG TAB PO SCH (20:09)
[2022-01-14] MEDS: FLUCONAZOLE IN NACL,ISO-OSM 100 MG in SALINE 1 50ML.BAG IVPB SCH (20:16)
[2022-01-15] MEDS: SENNOSIDES 8.6 MG TAB PO SCH ×2 (05:41→11:51)
[2022-01-15 05:52] LABS: Glucose,Whole Blood 129 mg/dL (70-110)
[2022-01-15] MEDS: MEROPENEM 1 GM in SODIUM CHLORIDE 0.9% 100 ML IVPB SCH ×3 (07:01→23:16)
[2022-01-15] MEDS: MULTIVITAMINS, THERA 1 EACH TAB PO SCH (08:23)
[2022-01-15] MEDS: lamoTRIgine 100 MG TAB PO SCH (08:23)
[2022-01-15] MEDS: DEXAMETHASONE SOD PHOSPHATE 4 MG/ML 1 ML VIAL IVP SCH (08:24)
[2022-01-15] MEDS: polyethylene glycoL 3350 17 GM POWD.PACK PO SCH (08:24)
[2022-01-15] MEDS: PANTOPRAZOLE 40 MG/10 ML VIAL IVP SCH ×2 (08:24→20:42)
[2022-01-15] MEDS: GABAPENTIN 300 MG CAP PO SCH ×3 (08:24→20:42)
[2022-01-15] MEDS: ALBUTEROL HFA INHALER INHALATION SCH ×4 (09:14→21:05)
--- NOTE | 2022-01-15 10:05 | P.PN ---
Subjective Progress Note Date: 01/15/22 Principal diagnosis: COVID This is a 51-year-old male patient with a history of CVA/TIA, diabetes mellitus, hyperlipidemia, depression, History of traumatic brain injury, paraplegia, developmental delay, recent DVT currently on Eliquis. He had developed increasing shortness of breath, cough and congestion and was seen at [facility] and found to have COVID-19 pneumonia and transferred to our facility on 01/06/22. He is being followed by the pulmonary service and infectious disease. Patient also has concerns of aspirating. Patient failed his swallow study. He has hx of chronic urinary retention currently been managed with 22 fr samaniego. Samaniego was exchanged yesterday due to UTI. it was noted that the patient had gross hematuria, and minimal drainage from the catheter. Of note, the patient has a latex ALLERGY, the Samaniego that was placed contained latex. 01/14 The patient has a history of traumatic brain injury, paraplegia, and a chronic Samaniego catheter for a neurogenic bladder. The patient has had recurrent fevers with leukocytosis and is being followed by infectious disease. Per ID the patient's sepsis could be related to catheter associated tract infection with his chronic indwelling Samaniego catheter. He did have a significant positive UA with evidence of yeast. His blood cultures are negative and his urine culture is pending. Per ID's recommendation the Samaniego was exchanged yesterday. Unfortunately, the Samaniego catheter was replaced with one containing latex, despite the patient's latex ALLERGY. The nursing staff reported that the new Samaniego catheter was not draining. Today the patient is afebrile, his vitals are stable, and he is on 3 L O2. Labs from 01/13 show a WBC of 13.6, his hemoglobin is stable at 9.7, and serum creatinine of 0.34. A new latex free Samaniego catheter was inserted by Dr. Lacy on 01/14 without difficulty. Hematuria and small clots were noted. The Samaniego catheter was irrigated and is draining well. The bladder was found to be fibrotic and contracted. Objective - Vital Signs Vital signs: Vital Signs Temp 98.0 F 01/15/22 08:34 Pulse 90 01/15/22 08:34 Resp 16 01/15/22 08:34 BP 132/67 01/15/22 08:34 Pulse Ox 92 L 01/15/22 08:34 FiO2 50 01/12/22 11:26 Intake & Output 01/14/22 01/15/22 01/15/22 18:59 06:59 18:59 Intake Total 300 80 Output Total 0 1210 Balance 300 -1130 Weight 80 kg Intake: IV 300 80 Fluconazole in NaCl,Iso- 50 Osm 100 mg In Saline 1 50ml.bag @ 50 mls/hr IVPB DAILY [facility] Rx#:[id number] Invasive Line 8 10 Invasive Line 9 20 Output: Drainage 0 10 Left Hip 0 5 Left Thigh 0 5 Urine 1200 Other: Voiding Method Indwelling Catheter Indwelling Catheter - Exam General: Well developed, No acute distress. Chronically ill appearing Lungs: Respirations even and nonlabored. On RA Abdomen/GI: Soft.No guarding, rigidity, or abdominal tenderness. : No suprapubic tenderness, normal phallus, nontender bilateral testicle, samaniego catheter draining light pink urine Skin: Warm and dry Neurologic: Awake and alert. Confused. No focal deficits. - Labs CBC & Chem 7: 01/14/22 11:05 01/14/22 11:05 Labs: Abnormal Lab Results - Last 24 Hours (Table) 01/14/22 01/14/22 01/14/22 Range/Units 11:05 11:05 11:41 WBC 12.1 H (3.8-10.6) k/uL RBC 3.73 L (4.30-5.90) m/uL Hgb 8.9 L (13.0-17.5) gm/dL Hct 30.7 L (39.0-53.0) % MCH 23.8 L (25.0-35.0) pg MCHC 28.9 L (31.0-37.0) g/dL RDW 21.4 H (11.5-15.5) % Plt Count 459 H (150-450) k/uL Neutrophils # 11.0 H (1.3-7.7) k/uL Lymphocytes # 0.5 L (1.0-4.8) k/uL Chloride 109 H (98-107) mmol/L BUN 7 L (9-20) mg/dL Creatinine 0.31 L (0.66-1.25) mg/dL Glucose 148 H (74-99) mg/dL POC Glucose (mg/dL) 161 H (70-110) mg/dL C-Reactive Protein 3.1 H (<1.0) mg/dL 01/14/22 01/14/22 01/15/22 Range/Units 16:41 19:42 05:51 WBC (3.8-10.6) k/uL RBC (4.30-5.90) m/uL Hgb (13.0-17.5) gm/dL Hct (39.0-53.0) % MCH (25.0-35.0) pg MCHC (31.0-37.0) g/dL RDW (11.5-15.5) % Plt Count (150-450) k/uL Neutrophils # (1.3-7.7) k/uL Lymphocytes # (1.0-4.8) k/uL Chloride (98-107) mmol/L BUN (9-20) mg/dL Creatinine (0.66-1.25) mg/dL Glucose (74-99) mg/dL POC Glucose (mg/dL) 181 H 146 H 129 H (70-110) mg/dL C-Reactive Protein (<1.0) mg/dL Microbiology - Last 24 Hours (Table) 01/13/22 09:15 Urine Culture - Preliminary Urine,Voided Yeast species 01/12/22 23:32 Blood Culture - Preliminary Blood No Growth after 48 hours Assessment and Plan Assessment: The patient denies any abdominal or flank pain. He denies any discomfort from his Samaniego catheter. The Samaniego catheter was irrigated. It is draining pink tinged clear urine. Final urine culture positive for yeast. WBC trending downward, 12.1 yesterday, serum creatinine 0.31, and Hgb 8.9. Patient afebrile and vitals are stable. (1) Neurogenic bladder Current Visit: Yes Status: Acute Code(s): N31.9 - NEUROMUSCULAR DYSFUNCTION OF BLADDER, UNSPECIFIED SNOMED Code(s): 502911811 (2) Urinary retention Current Visit: Yes Status: Acute Code(s): R33.9 - RETENTION OF URINE, UNSPECIFIED SNOMED Code(s): 902938139 Plan: - Antibiotics per ID recommendation - Monitor Samaniego catheter output - Irrigate Samaniego catheter as needed - Monitor hemoglobin Impression and plan of care have been directed as dictated by the signing physician. Alicia Nichols nurse practitioner acting as scribe for signing physician. Alicia Nichols [facility] Palliative Care/Urology Spectralink [phone] Email: [email or web address]
--- NOTE | 2022-01-15 10:56 | P.PN ---
Subjective Progress Note Date: 01/15/22 CHIEF COMPLAINT: Dysphagia HISTORY OF PRESENT ILLNESS: Patient is status post EGD with PEG tube placement and esophageal dilation. Results showed a hiatal hernia, gastric polyps, distal esophagitis and esophageal stricture. Patient's tube feedings will be started today. He currently denies any abdominal pain or any pain at the PEG tube site. Denies any nausea or vomiting. Afebrile. No new labs today PHYSICAL EXAM: VITAL SIGNS: Reviewed. GENERAL: Well-developed in no acute distress. HEENT: No sclera icterus. Extraocular movements grossly intact. Moist buccal mucosa. Head is atraumatic, normocephalic. ABDOMEN: Soft. Nondistended. Nontender. PEG tube site clean dry and intact NEUROLOGIC: Alert and oriented. Cranial nerves II through XII grossly intact. ASSESSMENT: 1. Dysphagia status post PEG tube placement 2. Moderate protein calorie malnutrition 3. Esophageal stricture status post EGD with dilation x 2 PLAN: -Start tube feedings today -Consult dietitian for tube feeding recommendations Physician Physical Security Engineer note has been reviewed by physician. Signing provider agrees with the documented findings, assessment, and plan of care. I have personally seen and examined the patient, reviewed the MEDIA DIRECTOR /PAs history, exam and MDM and agree with the assessment and plan as written. Based on total visit time, I have performed more than 50% of the visit. As above: patient denies pain. Tolerating tube feeds thus far. Continue antiacids. Await final pathology. Objective - Vital Signs Vital signs: Vital Signs Temp 98.0 F 01/15/22 08:34 Pulse 90 01/15/22 08:34 Resp 16 01/15/22 08:34 BP 132/67 01/15/22 08:34 Pulse Ox 92 L 01/15/22 08:34 FiO2 50 01/12/22 11:26 Intake & Output 01/14/22 01/15/22 01/15/22 18:59 06:59 18:59 Intake Total 300 80 Output Total 0 1210 Balance 300 -1130 Weight 80 kg Intake: IV 300 80 Fluconazole in NaCl,Iso- 50 Osm 100 mg In Saline 1 50ml.bag @ 50 mls/hr IVPB DAILY [facility] Rx#:[id number] Invasive Line 8 10 Invasive Line 9 20 Output: Drainage 0 10 Left Hip 0 5 Left Thigh 0 5 Urine 1200 Other: Voiding Method Indwelling Catheter Indwelling Catheter - Labs CBC & Chem 7: 01/14/22 11:05 01/14/22 11:05 Labs: Abnormal Lab Results - Last 24 Hours (Table) 01/14/22 01/14/22 01/14/22 Range/Units 11:05 11:05 11:41 WBC 12.1 H (3.8-10.6) k/uL RBC 3.73 L (4.30-5.90) m/uL Hgb 8.9 L (13.0-17.5) gm/dL Hct 30.7 L (39.0-53.0) % MCH 23.8 L (25.0-35.0) pg MCHC 28.9 L (31.0-37.0) g/dL RDW 21.4 H (11.5-15.5) % Plt Count 459 H (150-450) k/uL Neutrophils # 11.0 H (1.3-7.7) k/uL Lymphocytes # 0.5 L (1.0-4.8) k/uL Chloride 109 H (98-107) mmol/L BUN 7 L (9-20) mg/dL Creatinine 0.31 L (0.66-1.25) mg/dL Glucose 148 H (74-99) mg/dL POC Glucose (mg/dL) 161 H (70-110) mg/dL C-Reactive Protein 3.1 H (<1.0) mg/dL 01/14/22 01/14/22 01/15/22 Range/Units 16:41 19:42 05:51 WBC (3.8-10.6) k/uL RBC (4.30-5.90) m/uL Hgb (13.0-17.5) gm/dL Hct (39.0-53.0) % MCH (25.0-35.0) pg MCHC (31.0-37.0) g/dL RDW (11.5-15.5) % Plt Count (150-450) k/uL Neutrophils # (1.3-7.7) k/uL Lymphocytes # (1.0-4.8) k/uL Chloride (98-107) mmol/L BUN (9-20) mg/dL Creatinine (0.66-1.25) mg/dL Glucose (74-99) mg/dL POC Glucose (mg/dL) 181 H 146 H 129 H (70-110) mg/dL C-Reactive Protein (<1.0) mg/dL Microbiology - Last 24 Hours (Table) 01/13/22 09:15 Urine Culture - Final Urine,Voided Sherron glabrata 01/12/22 23:32 Blood Culture - Preliminary Blood No Growth after 48 hours
--- NOTE | 2022-01-15 11:14 | P.PN ---
Subjective Progress Note Date: 01/15/22 This is a 51-year-old patient being seen by the wound care center on [address] for nonhealing ulceration to the left thigh. Patient previously had skin grafting to the area and recently started to have irritation and a open ulceration. Patient has multiple ulcerations to the left lateral thigh with eschar and minimal granulation noted to the site. No tunneling or undermining noted. Periwound shows mild irritation. Patient's past medical history significant for diabetes, CVA, DVT, hyperlipidemia, seizure, sleep apnea 01/15/2022: Requested to reevaluate patient for additional ulcerations right hip ulceration is a stage III pressure ulcer measuring approximately 1.5 x 1.5 x 0.5 cm with no tunneling or undermining noted to the site. Granulation noted within the wound bed with minimal slough. Right knee ulceration is a stage II pressure ulcer with fat layer exposure measured approximate 2 x 2 x 0.1 cm excoriation and maceration noted to the periwound granulation and slough noted within the wo und bed. Right gluteal ulceration is a stage II pressure ulcer measuring approximately 0.5 x 0.2 x 0.1 cm with excoriation granulation and minimal slough noted. Review Of Systems: Constitutional: No fever, no chills, no night sweats. No weight change. No weakness, fatigue or lethargy. No daytime sleepiness. Integumentary:reports wounds, no lesions. No rash or pruritus. No unusual bruising. No change in hair or nails. Physical exam: General Appearance: Alert, cooperative, no distress, appears stated age. Skin: See HPI all other Skin color, texture, tugor normal, no rashes or lesions. Neurologic: Alert oriented x3 Assessment: 1. Nonhealing ulceration of left thigh with fat layer exposure 2. Diabetes with skin ulceration 3. Right buttocks pressure ulcer stage II 4. Right knee pressure ulcer stage II 5. Right hip ulceration pressure ulcer stage III Plan: 1.Left thigh, right buttocks, right knee: Apply honey alginate, saline moistened gauze, dry gauze, ABDs and secured with tape. Patient would benefit from advance wound care from the wound care clinic. We will be happy to see him in the wound care clinic upon discharge. 2. Right hip ulceration: Apply absorptive silver, saline moistened gauze, dry gauze ABDs and secured with tape. May change Friday and Friday with the other dressing changes. Thank you for the consultation any questions please contact the wound care center DNP note has been reviewed and discussed with Dr. Murcia and the impression and plan of care has been directed as dictated. Objective - Vital Signs Vital signs: Vital Signs Temp 98.0 F 01/15/22 08:34 Pulse 90 01/15/22 08:34 Resp 16 01/15/22 08:34 BP 132/67 01/15/22 08:34 Pulse Ox 92 L 01/15/22 08:34 FiO2 50 01/12/22 11:26 Intake & Output 01/14/22 01/15/22 01/15/22 18:59 06:59 18:59 Intake Total 300 80 Output Total 0 1210 Balance 300 -1130 Weight 80 kg Intake: IV 300 80 Fluconazole in NaCl,Iso- 50 Osm 100 mg In Saline 1 50ml.bag @ 50 mls/hr IVPB DAILY [facility] Rx#:[id number] Invasive Line 8 10 Invasive Line 9 20 Output: Drainage 0 10 Left Hip 0 5 Left Thigh 0 5 Urine 1200 Other: Voiding Method Indwelling Catheter Indwelling Catheter - Labs CBC & Chem 7: 01/14/22 11:05 01/14/22 11:05 Labs: Abnormal Lab Results - Last 24 Hours (Table) 01/14/22 01/14/22 01/14/22 Range/Units 11:05 11:05 11:41 WBC 12.1 H (3.8-10.6) k/uL RBC 3.73 L (4.30-5.90) m/uL Hgb 8.9 L (13.0-17.5) gm/dL Hct 30.7 L (39.0-53.0) % MCH 23.8 L (25.0-35.0) pg MCHC 28.9 L (31.0-37.0) g/dL RDW 21.4 H (11.5-15.5) % Plt Count 459 H (150-450) k/uL Neutrophils # 11.0 H (1.3-7.7) k/uL Lymphocytes # 0.5 L (1.0-4.8) k/uL Chloride 109 H (98-107) mmol/L BUN 7 L (9-20) mg/dL Creatinine 0.31 L (0.66-1.25) mg/dL Glucose 148 H (74-99) mg/dL POC Glucose (mg/dL) 161 H (70-110) mg/dL C-Reactive Protein 3.1 H (<1.0) mg/dL 01/14/22 01/14/22 01/15/22 Range/Units 16:41 19:42 05:51 WBC (3.8-10.6) k/uL RBC (4.30-5.90) m/uL Hgb (13.0-17.5) gm/dL Hct (39.0-53.0) % MCH (25.0-35.0) pg MCHC (31.0-37.0) g/dL RDW (11.5-15.5) % Plt Count (150-450) k/uL Neutrophils # (1.3-7.7) k/uL Lymphocytes # (1.0-4.8) k/uL Chloride (98-107) mmol/L BUN (9-20) mg/dL Creatinine (0.66-1.25) mg/dL Glucose (74-99) mg/dL POC Glucose (mg/dL) 181 H 146 H 129 H (70-110) mg/dL C-Reactive Protein (<1.0) mg/dL Microbiology - Last 24 Hours (Table) 01/13/22 09:15 Urine Culture - Final Urine,Voided Sherron glabrata 01/12/22 23:32 Blood Culture - Preliminary Blood No Growth after 48 hours Assessment and Plan (1) Non-pressure chronic ulcer of left thigh with fat layer exposed Current Visit: Yes Status: Acute Code(s): L97.122 - NON-PRESSURE CHRONIC ULCER OF LEFT THIGH W FAT LAYER EXPOSED SNOMED Code(s): 50333284146500753 (2) Type 2 diabetes mellitus with other skin ulcer Current Visit: Yes Status: Acute Code(s): E11.622 - TYPE 2 DIABETES MELLITUS WITH OTHER SKIN ULCER; L98.499 - NON-PRESSURE CHRONIC ULCER OF SKIN OF SITES W UNSP SEVERITY SNOMED Code(s): 638023292 (3) Stage III pressure ulcer of right hip Current Visit: Yes Status: Acute Code(s): L89.213 - PRESSURE ULCER OF RIGHT HIP, STAGE 3 SNOMED Code(s): 10742809045931 (4) Stage II pressure ulcer of right buttock Current Visit: Yes Status: Acute Code(s): L89.312 - PRESSURE ULCER OF RIGHT BUTTOCK, STAGE 2 SNOMED Code(s): 74718167886345 (5) Pressure ulcer of right calf, stage 2 Current Visit: Yes Status: Acute Code(s): L89.892 - PRESSURE ULCER OF OTHER SITE, STAGE 2 SNOMED Code(s): 106898564
--- NOTE | 2022-01-15 11:38 | P.PN ---
Subjective Progress Note Date: 01/15/22 Principal diagnosis: SOB Hospital Course: 51-year-old male with history of CVA/TIA, intellectual disability, TBI, diabetes, dyslipidemia, depression, recent DVT provoked on Eliquis presenting with shortness of breath. Currently being treated for hypoxic respiratory f ailure secondary to COVID-19 pneumonia. Patient was recently hospitalized at [facility] for left hip skin/muscle flap reconstruction, infected, on meropenem. During that hospitalization he developed a DVT, now on Eliquis, currently held. Being treated with Decadron and Remdesivir (completed course). Patient has severe dysphagia and esophageal strictures. He underwent EGD with dilation on 12/13. Had a repeat EGD and PEG tube placed on 01/14. Pulmonology and infectious disease also following. Urology also consulted for neurogenic bladder and urinary retention, no interventions planned. Now on room air, likely discharge in 1-2 days. Subjective: Patient seen and examined at bedside. No acute events overnight. He claims that his shortness of breath has improved. He denies any chest pain, abdominal pain, nausea, vomiting, diarrhea, or constipation. He has a Samaniego cath in place. Pertinent positives and negatives as discussed above, a complete review of systems was performed and all other systems are negative. Vitals Signs Reviewed. General: non toxic, no distress, appears at stated age Derm: warm, dry Head: History of prior trauma, symmetric Eyes: EOMI, no lid lag, anicteric sclera, left eye shut Mouth: no lip lesion, mucus membranes moist Cardiovascular: S1S2 reg, no murmur, Lungs: Clear to auscultation bilaterally, room air Abdominal: soft, nontender to palpation, no guarding, no appreciable organomegaly, left-sided ostomy bag Ext: no gross muscle atrophy, no edema, no contractures, flaccid paralysis of left lower extremity, has 2 drains on the left side Neuro: CN II-XI grossly intact, no focal neuro deficits Psych: Alert, oriented, appropriate affect Assessment and Plan: Acute hypoxic respiratory failure, resolved Acute COVID-19 pneumonia Febrile -Remains on steroids -remdesivir completed course -Duonebs -Pulmonology following -also s/p IV lasix once -ID consulted Recent provoked DVT - holding eliquis for peg tube -Plan to restart tomorrow Recent left hip skin flap surgery, infection Leukocytosis -Continue meropenem -ID consulted Dysphagia -Failed swallowing evaluation -PEG feeding tube placement attempted on 01/11, failed due to esophageal st rictures, these were dilated. -Repeat EGD and PEG tube placement on 01/14 Neurogenic bladder chronic urinary retention - UA showed yeast - has samaniego in place since admission - Ucx no growth - ID and urology following - on diflucan Mild hypernatremia -Resolved. History of TBI History of developmental delay Dyslipidemia -Medications reviewed and reconciled DVT ppx: SCDs Code status: Full code Anticipated discharge place: Home Anticipated discharge time: In 1-2 days Objective - Vital Signs Vital signs: Vital Signs Temp 98.0 F 01/15/22 08:34 Pulse 90 01/15/22 08:34 Resp 16 01/15/22 08:34 BP 132/67 01/15/22 08:34 Pulse Ox 92 L 01/15/22 08:34 FiO2 50 01/12/22 11:26 Intake & Output 01/14/22 01/15/22 01/15/22 18:59 06:59 18:59 Intake Total 300 80 Output Total 0 1210 345 Balance 300 -1130 -345 Weight 80 kg Intake: IV 300 80 Fluconazole in NaCl,Iso- 50 Osm 100 mg In Saline 1 50ml.bag @ 50 mls/hr IVPB DAILY [facility] Rx#:[id number] Invasive Line 8 10 Invasive Line 9 20 Output: Drainage 0 10 Left Hip 0 5 Left Thigh 0 5 Urine 1200 345 Uretheral (Samaniego) 345 Other: Voiding Method Indwelling Catheter Indwelling Catheter - Labs CBC & Chem 7: 01/14/22 11:05 01/14/22 11:05 Labs: Abnormal Lab Results - Last 24 Hours (Table) 01/14/22 01/14/22 01/14/22 Range/Units 11:05 11:05 11:41 WBC 12.1 H (3.8-10.6) k/uL RBC 3.73 L (4.30-5.90) m/uL Hgb 8.9 L (13.0-17.5) gm/dL Hct 30.7 L (39.0-53.0) % MCH 23.8 L (25.0-35.0) pg MCHC 28.9 L (31.0-37.0) g/dL RDW 21.4 H (11.5-15.5) % Plt Count 459 H (150-450) k/uL Neutrophils # 11.0 H (1.3-7.7) k/uL Lymphocytes # 0.5 L (1.0-4.8) k/uL Chloride 109 H (98-107) mmol/L BUN 7 L (9-20) mg/dL Creatinine 0.31 L (0.66-1.25) mg/dL Glucose 148 H (74-99) mg/dL POC Glucose (mg/dL) 161 H (70-110) mg/dL C-Reactive Protein 3.1 H (<1.0) mg/dL 01/14/22 01/14/22 01/15/22 Range/Units 16:41 19:42 05:51 WBC (3.8-10.6) k/uL RBC (4.30-5.90) m/uL Hgb (13.0-17.5) gm/dL Hct (39.0-53.0) % MCH (25.0-35.0) pg MCHC (31.0-37.0) g/dL RDW (11.5-15.5) % Plt Count (150-450) k/uL Neutrophils # (1.3-7.7) k/uL Lymphocytes # (1.0-4.8) k/uL Chloride (98-107) mmol/L BUN (9-20) mg/dL Creatinine (0.66-1.25) mg/dL Glucose (74-99) mg/dL POC Glucose (mg/dL) 181 H 146 H 129 H (70-110) mg/dL C-Reactive Protein (<1.0) mg/dL Microbiology - Last 24 Hours (Table) 01/13/22 09:15 Urine Culture - Final Urine,Voided Sherron glabrata 01/12/22 23:32 Blood Culture - Preliminary Blood No Growth after 48 hours
[2022-01-15 11:43] LABS: Glucose,Whole Blood 144 mg/dL (70-110)
[2022-01-15] MEDS ORDERED: hydrALAZINE HCL 10 MG TAB PEG/G-TUBE PRN (12:03)
[2022-01-15] MEDS ORDERED: IBUPROFEN 400 MG TAB PEG/G-TUBE PRN (12:04)
--- NOTE | 2022-01-15 13:36 | P.PN ---
Subjective Progress Note Date: 01/15/22 Principal diagnosis: Shortness of breath. Reevaluated today on 01/11/22, patient is on 3 L nasal cannula, doing well, not in any distress, patient is scheduled to have a PEG tube placed today. Remains on the COVID-19 cocktail. Remains on antibiotics. Overall the patient is doing better than expected. WBC count is 5.6 hemoglobin 8.4 lites are normal renal profile is normal Reevaluated today on 02/08/22, patient is doing well, however around 1 AM last night, patient was placed for some reason on BiPAP, his chest x-ray today is reassuring, he continues to have minimal left basilar opacity/consistent with pneumonia, but slightly improved compared to the admission chest x-ray. His O2 saturation on 3 L was 98%, apparently the patient felt more comfortable with the BiPAP 50% FiO2. However needs to be placed back on nasal cannula. Patient had uneventful PEG tube placement yesterday, and he will be started on enteral feeding likely today. Electrolytes are normal renal profile is normal CBC showed a low hemoglobin of 8.4 which is about his baseline Reevaluated today on 01/13/22, patient is doing well, I found out today that the patient did not have placement of the PEG tube, they could not have it placed, and is scheduled to have it done again tomorrow. In the meantime his pulmonary status is about the same, he remains on 3 L nasal cannula, and O2 saturations 94%. Patient is not in any distress chest x-ray from yesterday showed improvement in his infiltrates, he has minimal left basilar infiltrate. Patient remains on COVID-19 cocktail, remains on antibiotics patient has been on Merrem all along. Labs today were unremarkable, his urine seems to be infected, urine cultures are pending, urinalysis is highly suggestive of UTI Progress note dated 01/14/2022. The patient appears to be doing relatively well. He seen again in room 352. He's currently on 3 L of oxygen. Saturations are 99%. He is getting saline at 50 mL an hour. There is no audible wheezing, use of accessory muscles, or conversational dyspnea. The patient's on meropenem, and fluconazole. White count 12.1, hemoglobin 8.9, hematocrit 30.7, platelet count 459,000. Sodium 142, potassium 3.6, chlorides 109, CO2 22, BUN 7, creatinine 0.31. Urine suggested urinary tract infection. Progress note dated 01/15/2022. 51-year-old male again seen in room 352. He is resting comfortably. Not on any supplemental oxygen. Getting saline at 20 mL an hour. No new blood work today other than a glucose of 144. The patient states that he's feeling fine. He is not particularly talkative. He appears in no distress. No conversational dyspnea, or, use of accessory muscles Objective - Vital Signs Vital signs: Vital Signs Temp 98.0 F 01/15/22 08:34 Pulse 90 01/15/22 08:34 Resp 16 01/15/22 08:34 BP 132/67 01/15/22 08:34 Pulse Ox 92 L 01/15/22 08:34 FiO2 50 01/12/22 11:26 Intake & Output 01/14/22 01/15/22 01/15/22 18:59 06:59 18:59 Intake Total 300 80 Output Total 0 1210 345 Balance 300 -1130 -345 Weight 80 kg Intake: IV 300 80 Fluconazole in NaCl,Iso- 50 Osm 100 mg In Saline 1 50ml.bag @ 50 mls/hr IVPB DAILY [facility] Rx#:[id number] Invasive Line 8 10 Invasive Line 9 20 Output: Drainage 0 10 Left Hip 0 5 Left Thigh 0 5 Urine 1200 345 Uretheral ([place]) 345 Other: Voiding Method Indwelling Catheter Indwelling Catheter - Exam No acute distress, oriented 3. Currently on 2 L of oxygen. HEENT examination is grossly unremarkable. Evidence of previous trauma noted. Neck supple. Full range of motion. No adenopathy thyromegaly or neck vein distention. Cardiovascular examination reveals regular rhythm rate. S1-S2 normal. No S3 or S4. No discernible murmur noted. Heart rate 90 bpm. Lungs reveal crackles at the left base. No rhonchi. No wheezes. Saturations are excellent, at 96%. Abdomen soft bowel sounds are heard. No masses or tenderness. Extremities reveal patient to be paraplegic. No cyanosis or clubbing. Skin is without rash or lesion. Neurologic examination as above. - Labs CBC & Chem 7: 01/14/22 11:05 01/14/22 11:05 Labs: Abnormal Lab Results - Last 24 Hours (Table) 01/14/22 01/14/22 01/15/22 Range/Units 16:41 19:42 05:51 POC Glucose (mg/dL) 181 H 146 H 129 H (70-110) mg/dL 01/15/22 Range/Units 11:42 POC Glucose (mg/dL) 144 H (70-110) mg/dL Microbiology - Last 24 Hours (Table) 01/13/22 09:15 Urine Culture - Final Urine,Voided Sherron glabrata 01/12/22 23:32 Blood Culture - Preliminary Blood No Growth after 48 hours Assessment and Plan Assessment: Acute hypoxemic respiratory failure, secondary to coronavirus associated pneumonia. History of previous traumatic brain injury and paraplegia. Recent surgery to the left hip, and subsequent post-procedure DVT. History of developmental delay. History of possible aspiration pneumonia. Possible urinary tract infection. Plan: Plan dated 01/14/2022. The patient continues on oxygen. He is on 3 L. Saturations are 99%. Use with aspiration precautions. The patient did complete a full course of REM the patient continues on factor X a inhibitor. The patient also continues on Decadron. The patient is on meropenem, and fluconazole. Additional recommendations and suggestions are forthcoming. PEG tube to be placed. Plan dated 01/15/2022. The patient appears be doing well. Currently on room air. The patient's getting saline at 20 mL an hour. No new labs today other than a blood glucose. We will continue to follow. The patient remains on albuterol inhaler, Decadron, meropenem, and fluconazole. Time with Patient: Less than 30
[2022-01-15] MEDS: SENNOSIDES 8.6 MG TAB PEG/G-TUBE SCH ×3 (16:56→23:16)
[2022-01-15 18:29] LABS: Glucose,Whole Blood 111 mg/dL (70-110)
[2022-01-15] MEDS: polyethylene glycoL 3350 17 GM POWD.PACK PEG/G-TUBE SCH (20:42)
[2022-01-15] MEDS: INSULIN DETEMIR (LEVEMIR) 100 UNIT/ML SYR SQ SCH (20:42)
[2022-01-15] MEDS: FLUCONAZOLE IN NACL,ISO-OSM 100 MG in SALINE 1 50ML.BAG IVPB SCH (20:42)
[2022-01-15] MEDS: ATORVASTATIN 80 MG TAB PEG/G-TUBE SCH (20:42)
[2022-01-16 00:03] LABS: Glucose,Whole Blood 85 mg/dL (70-110)
--- NOTE | 2022-01-16 00:28 | P.PN ---
Subjective Progress Note Date: 01/14/22 Principal diagnosis: Fevers/(UTI Patient is a 51 year old male with developmental delay CVA TIA diabetes recent surgery for the left hip muscle flap [facility] and the patient has been on IV meropenem presenting to the hospital for weakness diagnosed with a covid 19 did have a new fever concerning for possible catheter associated urinary tract infection. On today's evaluation that is 01/14/2022, the patient is afebrile the patient is currently breathing comfortably on room air patient himself is not a very good historian no vomiting or diarrhea was reported samaniego catheter has been changed Objective - Vital Signs Vital signs: Vital Signs Temp 98.9 F 01/14/22 11:25 Pulse 94 01/14/22 11:25 Resp 18 01/14/22 11:25 BP 133/72 01/14/22 11:25 Pulse Ox 99 01/14/22 11:25 FiO2 50 01/12/22 11:26 Intake & Output 01/13/22 01/14/22 01/14/22 18:59 06:59 18:59 Intake Total 1070 Output Total 520 430 0 Balance -520 640 0 Weight 80 kg 80 kg Intake: IV 1070 Fluconazole in NaCl,Iso- 50 Osm 100 mg In Saline 1 50ml.bag @ 50 mls/hr IVPB DAILY [facility] Rx#:[id number] Invasive Line 8 20 Meropenem 1 gm In Sodium 100 Chloride 0.9% 100 ml @ 33 .3 mls/hr IVPB Q8HR [facility] Rx#:[id number] Sodium Chloride 0.9% 1, 900 000 ml @ 75 mls/hr IV . [id number] [facility] Rx#:[id number] Output: Drainage 20 0 0 Left Hip 10 0 0 Left Thigh 10 0 0 Urine 500 430 Uretheral ([place]) 100 200 Other: Voiding Method Indwelling Catheter Indwelling Catheter Indwelling Catheter - Exam GENERAL DESCRIPTION: Middle-aged male lying in bed in no distress RESPIRATORY SYSTEM: Unlabored breathing , decreased breath sounds at bases HEART: S1 S2 regular rate and rhythm , ABDOMEN: Soft , no tenderness EXTREMITIES: No edema feet - Labs CBC & Chem 7: 01/14/22 11:05 01/14/22 11:05 Labs: Abnormal Lab Results - Last 24 Hours (Table) 01/13/22 01/13/22 01/13/22 Range/Units 12:07 16:47 20:17 WBC 13.6 H (3.8-10.6) k/uL RBC 4.01 L (4.30-5.90) m/uL Hgb 9.7 L (13.0-17.5) gm/dL Hct 33.1 L (39.0-53.0) % MCH 24.3 L (25.0-35.0) pg MCHC 29.4 L (31.0-37.0) g/dL RDW 21.2 H (11.5-15.5) % Plt Count 462 H (150-450) k/uL Neutrophils # 12.5 H (1.3-7.7) k/uL Lymphocytes # 0.5 L (1.0-4.8) k/uL Chloride (98-107) mmol/L BUN (9-20) mg/dL Creatinine (0.66-1.25) mg/dL Glucose (74-99) mg/dL POC Glucose (mg/dL) 135 H 124 H (70-110) mg/dL C-Reactive Protein (<1.0) mg/dL Urine Protein (Negative) Urine Ketones (Negative) Urine Blood (Negative) Ur Leukocyte Esterase (Negative) Urine RBC (0-5) /hpf Urine WBC (0-5) /hpf Urine WBC Clumps (None) /hpf Urine Mucus (None) /hpf 01/14/22 01/14/22 01/14/22 Range/Units 06:04 06:40 11:05 WBC 12.1 H (3.8-10.6) k/uL RBC 3.73 L (4.30-5.90) m/uL Hgb 8.9 L (13.0-17.5) gm/dL Hct 30.7 L (39.0-53.0) % MCH 23.8 L (25.0-35.0) pg MCHC 28.9 L (31.0-37.0) g/dL RDW 21.4 H (11.5-15.5) % Plt Count 459 H (150-450) k/uL Neutrophils # 11.0 H (1.3-7.7) k/uL Lymphocytes # 0.5 L (1.0-4.8) k/uL Chloride (98-107) mmol/L BUN (9-20) mg/dL Creatinine (0.66-1.25) mg/dL Glucose (74-99) mg/dL POC Glucose (mg/dL) 161 H (70-110) mg/dL C-Reactive Protein (<1.0) mg/dL Urine Protein 2+ H (Negative) Urine Ketones 4+ H (Negative) Urine Blood Large H (Negative) Ur Leukocyte Esterase Large H (Negative) Urine RBC >182 H (0-5) /hpf Urine WBC >182 H (0-5) /hpf Urine WBC Clumps Occasional H (None) /hpf Urine Mucus Many H (None) /hpf 01/14/22 01/14/22 Range/Units 11:05 11:41 WBC (3.8-10.6) k/uL RBC (4.30-5.90) m/uL Hgb (13.0-17.5) gm/dL Hct (39.0-53.0) % MCH (25.0-35.0) pg MCHC (31.0-37.0) g/dL RDW (11.5-15.5) % Plt Count (150-450) k/uL Neutrophils # (1.3-7.7) k/uL Lymphocytes # (1.0-4.8) k/uL Chloride 109 H (98-107) mmol/L BUN 7 L (9-20) mg/dL Creatinine 0.31 L (0.66-1.25) mg/dL Glucose 148 H (74-99) mg/dL POC Glucose (mg/dL) 161 H (70-110) mg/dL C-Reactive Protein 3.1 H (<1.0) mg/dL Urine Protein (Negative) Urine Ketones (Negative) Urine Blood (Negative) Ur Leukocyte Esterase (Negative) Urine RBC (0-5) /hpf Urine WBC (0-5) /hpf Urine WBC Clumps (None) /hpf Urine Mucus (None) /hpf Microbiology - Last 24 Hours (Table) 01/13/22 09:15 Urine Culture - Final Urine,Voided 01/12/22 23:32 Blood Culture - Preliminary Blood No Growth after 24 hours Assessment and Plan (1) Urinary tract infection Current Visit: Yes Status: Acute Code(s): N39.0 - URINARY TRACT INFECTION, SITE NOT SPECIFIED SNOMED Code(s): 38536423 Plan: 1patient with sepsis in this patient with a fever elevated white count could be related to catheter associated tract infection in this patient with a chronic indwelling Samaniego catheter and did have significant positive UA with evidence of yeast. 2patient also have a infection to the left hip area this patient with recent muscle flap surgery and is getting meropenem 3patient with a covid19 infection overall respiratory status seems to be stable and improving pain no worsening pneumonia reported on the chest x-ray on 01/12/2022 4 patient Samaniego catheter has been changed Diflucan has been evaluated and we'll see clinical response Time with Patient: Less than 30
--- NOTE | 2022-01-16 00:29 | P.PN ---
Subjective Progress Note Date: 01/15/22 Principal diagnosis: Fevers/(UTI Patient is a 51 year old male with developmental delay CVA TIA diabetes recent surgery for the left hip muscle flap [facility] and the patient has been on IV meropenem presenting to the hospital for weakness diagnosed with a covid 19 did have a new fever concerning for possible catheter associated urinary tract infection. On today's evaluation that is 01/15/2022, the patient remains to be afebrile , the patient is currently breathing comfortably on room air, patient himself is not a very good historian no vomiting or any other changes reported by the nursing staff Objective - Vital Signs Vital signs: Vital Signs Temp 98.0 F 01/15/22 08:34 Pulse 90 01/15/22 08:34 Resp 16 01/15/22 08:34 BP 132/67 01/15/22 08:34 Pulse Ox 92 L 01/15/22 08:34 FiO2 50 01/12/22 11:26 Intake & Output 01/14/22 01/15/22 01/15/22 18:59 06:59 18:59 Intake Total 300 80 Output Total 0 1210 345 Balance 300 -1130 -345 Weight 80 kg Intake: IV 300 80 Fluconazole in NaCl,Iso- 50 Osm 100 mg In Saline 1 50ml.bag @ 50 mls/hr IVPB DAILY [facility] Rx#:[id number] Invasive Line 8 10 Invasive Line 9 20 Output: Drainage 0 10 Left Hip 0 5 Left Thigh 0 5 Urine 1200 345 Uretheral ([place]) 345 Other: Voiding Method Indwelling Catheter Indwelling Catheter - Exam GENERAL DESCRIPTION: Middle-aged male lying in bed in no distress RESPIRATORY SYSTEM: Unlabored breathing , decreased breath sounds at bases HEART: S1 S2 regular rate and rhythm , ABDOMEN: Soft , no tenderness EXTREMITIES: No edema feet - Labs CBC & Chem 7: 01/14/22 11:05 01/14/22 11:05 Labs: Abnormal Lab Results - Last 24 Hours (Table) 01/14/22 01/14/22 01/15/22 Range/Units 16:41 19:42 05:51 POC Glucose (mg/dL) 181 H 146 H 129 H (70-110) mg/dL 01/15/22 Range/Units 11:42 POC Glucose (mg/dL) 144 H (70-110) mg/dL Microbiology - Last 24 Hours (Table) 01/13/22 09:15 Urine Culture - Final Urine,Voided Sherron glabrata 01/12/22 23:32 Blood Culture - Preliminary Blood No Growth after 48 hours Assessment and Plan (1) Urinary tract infection Current Visit: Yes Status: Acute Code(s): N39.0 - URINARY TRACT INFECTION, SITE NOT SPECIFIED SNOMED Code(s): 46804630 Plan: 1patient with sepsis in this patient with a fever elevated white count could be related to catheter associated tract infection in this patient with a chronic indwelling [place] catheter and did have significant positive UA with evidence of yeast. 2patient also have a infection to the left hip area this patient with recent muscle flap surgery and is getting meropenem 3patient with a covid19 infection overall respiratory status seems to be stable and improving pain no worsening pneumonia reported on the chest x-ray on 01/12/2022 4 patient fever has resolved likely related to catheter associated UTI with urine showing Sherron responded to Diflucan to continue Time with Patient: Less than 30
[2022-01-16 06:01] LABS: Glucose,Whole Blood 118 mg/dL (70-110)
[2022-01-16] MEDS: SENNOSIDES 8.6 MG TAB PEG/G-TUBE SCH ×5 (06:37→23:07)
[2022-01-16] MEDS: ALBUTEROL HFA INHALER INHALATION SCH ×4 (09:03→22:12)
[2022-01-16] MEDS: MEROPENEM 1 GM in SODIUM CHLORIDE 0.9% 100 ML IVPB SCH ×3 (09:47→23:06)
[2022-01-16] MEDS: GABAPENTIN 300 MG CAP PO SCH ×3 (09:48→21:25)
[2022-01-16] MEDS: PANTOPRAZOLE 40 MG/10 ML VIAL IVP SCH ×2 (09:48→21:24)
[2022-01-16] MEDS: lamoTRIgine 100 MG TAB PEG/G-TUBE SCH (09:48)
[2022-01-16] MEDS: DEXAMETHASONE SOD PHOSPHATE 4 MG/ML 1 ML VIAL IVP SCH (09:48)
[2022-01-16] MEDS: polyethylene glycoL 3350 17 GM POWD.PACK PEG/G-TUBE SCH ×2 (09:49→21:19)
--- NOTE | 2022-01-16 11:42 | P.PN ---
Subjective Progress Note Date: 01/16/22 Principal diagnosis: SOB Hospital Course: 51-year-old male with history of CVA/TIA, intellectual disability, TBI, diabetes, dyslipidemia, depression, recent DVT provoked on Eliquis presenting with shortness of breath. Currently being treated for hypoxic respiratory f ailure secondary to COVID-19 pneumonia. Patient was recently hospitalized at [facility] for left hip skin/muscle flap reconstruction, infected, on meropenem. During that hospitalization he developed a DVT, now on Eliquis, currently held. Being treated with Decadron and Remdesivir (completed course). Patient has severe dysphagia and esophageal strictures. He underwent EGD with dilation on 12/13. Had a repeat EGD and PEG tube placed on 01/14. Pulmonology and infectious disease also following. Urology also consulted for neurogenic bladder and urinary retention, no interventions planned. Now on room air, likely discharge in 1-2 days once PEG tube feeds are at goal. Subjective: Patient seen and examined at bedside. No acute events overnight. He denies any shortness of breath, chest pain, abdominal pain, nausea, vomiting, diarrhea, or constipation. He has a Samaniego cath in place. PEG tube feeds running at 20 mL an hour, patient tolerating well. Pertinent positives and negatives as discussed above, a complete review of systems was performed and all other systems are negative. Vitals Signs Reviewed. General: non toxic, no distress, appears at stated age Derm: warm, dry Head: History of prior trauma, symmetric Eyes: EOMI, no lid lag, anicteric sclera, left eye shut Mouth: no lip lesion, mucus membranes moist Cardiovascular: S1S2 reg, no murmur, Lungs: Clear to auscultation bilaterally, room air Abdominal: soft, nontender to palpation, no guarding, no appreciable organomegaly, left-sided ostomy bag, PEG tube site clean and dry Ext: no gross muscle atrophy, no edema, no contractures, flaccid paralysis of left lower extremity, has 2 drains on the left side Neuro: CN II-XI grossly intact, no focal neuro deficits Psych: Alert, oriented, appropriate affect Assessment and Plan: Acute hypoxic respiratory failure, resolved Acute COVID-19 pneumonia Febrile - resolved -Remains on steroids -remdesivir completed course -Duonebs -Pulmonology following -also s/p IV lasix once -ID consulted Recent provoked DVT -Restart Eliquis today Recent left hip skin flap surgery, infection Leukocytosis -Continue meropenem -ID consulted Dysphagia -Failed swallowing evaluation -PEG feeding tube placement attempted on 01/11, failed due to esophageal strictures, these were dilated. -Repeat EGD and PEG tube placement on 01/14 Neurogenic bladder chronic urinary retention - UA showed yeast - has samaniego in place since admission - Ucx no growth - ID and urology following - on diflucan Mild hypernatremia -Resolved. History of TBI History of developmental delay Dyslipidemia -Medications reviewed and reconciled DVT ppx: SCDs Code status: Full code Anticipated discharge place: Home Anticipated discharge time: In 1-2 days once PEG tube feeds are at goal Objective - Vital Signs Vital signs: Vital Signs Temp 97.9 F 01/16/22 09:51 Pulse 99 01/16/22 09:51 Resp 16 01/16/22 09:51 BP 128/74 01/16/22 09:51 Pulse Ox 91 L 01/16/22 09:51 FiO2 50 01/12/22 11:26 Intake & Output 01/15/22 01/16/22 01/16/22 18:59 06:59 18:59 Intake Total 20 10 Output Total 485 525 Balance -465 -515 Weight 79.5 kg Intake: IV 20 10 Invasive Line 9 20 10 Output: Drainage 40 Left Hip 10 Left Thigh 30 Urine 345 525 Uretheral ([place]) 345 Stool 100 Other: Voiding Method Indwelling Catheter Indwelling Catheter - Labs CBC & Chem 7: 01/14/22 11:05 01/14/22 11:05 Labs: Abnormal Lab Results - Last 24 Hours (Table) 01/15/22 01/15/22 01/16/22 Range/Units 11:42 18:27 05:58 POC Glucose (mg/dL) 144 H 111 H 118 H (70-110) mg/dL Microbiology - Last 24 Hours (Table) 01/12/22 23:32 Blood Culture - Preliminary Blood No Growth after 72 hours 01/13/22 09:15 Urine Culture - Final Urine,Voided Sherron glabrata
[2022-01-16 12:09] LABS: Glucose,Whole Blood 143 mg/dL (70-110)
--- NOTE | 2022-01-16 13:36 | P.PN ---
Subjective Progress Note Date: 01/16/22 CHIEF COMPLAINT: Dysphagia HISTORY OF PRESENT ILLNESS: Patient is status post EGD with PEG tube placement and esophageal dilation. Results showed a hiatal hernia, gastric polyps, distal esophagitis and esophageal stricture. Patient is tolerating tube feeds. Tube feeds are currently a 20 mL per hour. Patient denies any abdominal pain. Denies any nausea or vomiting. Afebrile. PHYSICAL EXAM: VITAL SIGNS: Reviewed. GENERAL: Well-developed in no acute distress. HEENT: No sclera icterus. Extraocular movements grossly intact. Moist buccal mucosa. Head is atraumatic, normocephalic. ABDOMEN: Soft. Nondistended. Nontender. PEG tube site clean dry and intact NEUROLOGIC: Alert and oriented. Cranial nerves II through XII grossly intact. ASSESSMENT: 1. Dysphagia status post PEG tube placement 2. Moderate protein calorie malnutrition 3. Esophageal stricture status post EGD with dilation x 2 PLAN: -Continue to titrate tube feedings -Patient requesting to eat. Speech therapy consulted to do another swallow eval -Continue supportive care Physician Bi Data Architect note has been reviewed by physician. Signing provider agrees with the documented findings, assessment, and plan of care. Objective - Vital Signs Vital signs: Vital Signs Temp 97.9 F 01/16/22 09:51 Pulse 99 01/16/22 09:51 Resp 16 01/16/22 09:51 BP 128/74 01/16/22 09:51 Pulse Ox 91 L 01/16/22 09:51 FiO2 50 01/12/22 11:26 Intake & Output 01/15/22 01/16/22 01/16/22 18:59 06:59 18:59 Intake Total 20 10 Output Total 485 525 400 Balance -465 -515 -400 Weight 79.5 kg 79.5 kg Intake: IV 20 10 Invasive Line 9 20 10 Output: Drainage 40 Left Hip 10 Left Thigh 30 Urine 345 525 250 Uretheral ([place]) 345 Stool 100 150 Other: Voiding Method Indwelling Catheter Indwelling Catheter - Labs CBC & Chem 7: 01/14/22 11:05 01/14/22 11:05 Labs: Abnormal Lab Results - Last 24 Hours (Table) 01/15/22 01/16/22 01/16/22 Range/Units 18:27 05:58 11:58 POC Glucose (mg/dL) 111 H 118 H 143 H (70-110) mg/dL Microbiology - Last 24 Hours (Table) 01/12/22 23:32 Blood Culture - Preliminary Blood No Growth after 72 hours 01/13/22 09:15 Urine Culture - Final Urine,Voided Sherron glabrata
--- NOTE | 2022-01-16 14:14 | P.PN ---
Subjective Progress Note Date: 01/16/22 Principal diagnosis: Shortness of breath. Reevaluated today on 01/11/22, patient is on 3 L nasal cannula, doing well, not in any distress, patient is scheduled to have a PEG tube placed today. Remains on the COVID-19 cocktail. Remains on antibiotics. Overall the patient is doing better than expected. WBC count is 5.6 hemoglobin 8.4 lites are normal renal profile is normal Reevaluated today on 02/08/22, patient is doing well, however around 1 AM last night, patient was placed for some reason on BiPAP, his chest x-ray today is reassuring, he continues to have minimal left basilar opacity/consistent with pneumonia, but slightly improved compared to the admission chest x-ray. His O2 saturation on 3 L was 98%, apparently the patient felt more comfortable with the BiPAP 50% FiO2. However needs to be placed back on nasal cannula. Patient had uneventful PEG tube placement yesterday, and he will be started on enteral feeding likely today. Electrolytes are normal renal profile is normal CBC showed a low hemoglobin of 8.4 which is about his baseline Reevaluated today on 01/13/22, patient is doing well, I found out today that the patient did not have placement of the PEG tube, they could not have it placed, and is scheduled to have it done again tomorrow. In the meantime his pulmonary status is about the same, he remains on 3 L nasal cannula, and O2 saturations 94%. Patient is not in any distress chest x-ray from yesterday showed improvement in his infiltrates, he has minimal left basilar infiltrate. Patient remains on COVID-19 cocktail, remains on antibiotics patient has been on Merrem all along. Labs today were unremarkable, his urine seems to be infected, urine cultures are pending, urinalysis is highly suggestive of UTI Progress note dated 01/14/2022. The patient appears to be doing relatively well. He seen again in room 352. He's currently on 3 L of oxygen. Saturations are 99%. He is getting saline at 50 mL an hour. There is no audible wheezing, use of accessory muscles, or conversational dyspnea. The patient's on meropenem, and fluconazole. White count 12.1, hemoglobin 8.9, hematocrit 30.7, platelet count 459,000. Sodium 142, potassium 3.6, chlorides 109, CO2 22, BUN 7, creatinine 0.31. Urine suggested urinary tract infection. Progress note dated 01/15/2022. 51-year-old male again seen in room 352. He is resting comfortably. Not on any supplemental oxygen. Getting saline at 20 mL an hour. No new blood work today other than a glucose of 144. The patient states that he's feeling fine. He is not particularly talkative. He appears in no distress. No conversational dyspnea, or, use of accessory muscles. Progress note dated 01/16/2022. 51-year-old male seen again in room 352. He is resting comfortably. He's getting Glucerna at 30 mL an hour. Saline at 20 mL an hour. He is not on any supplemental oxygen. No new labs today other than a blood glucose of 143. Objective - Vital Signs Vital signs: Vital Signs Temp 97.9 F 01/16/22 09:51 Pulse 99 01/16/22 09:51 Resp 16 01/16/22 09:51 BP 128/74 01/16/22 09:51 Pulse Ox 91 L 01/16/22 09:51 FiO2 50 01/12/22 11:26 Intake & Output 01/15/22 01/16/22 01/16/22 18:59 06:59 18:59 Intake Total 20 10 Output Total 485 525 400 Balance -465 -515 -400 Weight 79.5 kg 79.5 kg Intake: IV 20 10 Invasive Line 9 20 10 Output: Drainage 40 Left Hip 10 Left Thigh 30 Urine 345 525 250 Uretheral (Robins) 345 Stool 100 150 Other: Voiding Method Indwelling Catheter Indwelling Catheter - Exam No acute distress, oriented 3. Currently on 91%.oom air. HEENT examination is grossly unremarkable. Evidence of previous trauma noted. Neck supple. Full range of motion. No adenopathy thyromegaly or neck vein distention. Cardiovascular examination reveals regular rhythm rate. S1-S2 normal. No S3 or S4. No discernible murmur noted. Heart rate 67 bpm. Lungs reveal crackles at the left base. No rhonchi. No wheezes. Saturations are excellent, at 96%. Abdomen soft bowel sounds are heard. No masses or tenderness. Extremities reveal patient to be paraplegic. No cyanosis or clubbing. Skin is without rash or lesion. Neurologic examination as above. - Labs CBC & Chem 7: 01/14/22 11:05 01/14/22 11:05 Labs: Abnormal Lab Results - Last 24 Hours (Table) 01/15/22 01/16/22 01/16/22 Range/Units 18:27 05:58 11:58 POC Glucose (mg/dL) 111 H 118 H 143 H (70-110) mg/dL Microbiology - Last 24 Hours (Table) 01/12/22 23:32 Blood Culture - Preliminary Blood No Growth after 72 hours 01/13/22 09:15 Urine Culture - Final Urine,Voided Sherron glabrata Assessment and Plan Assessment: Acute hypoxemic respiratory failure, secondary to coronavirus associated pneumonia. History of previous traumatic brain injury and paraplegia. Recent surgery to the left hip, and subsequent post-procedure DVT. History of developmental delay. History of possible aspiration pneumonia. Possible urinary tract infection. Plan: Plan dated 01/14/2022. The patient continues on oxygen. He is on 3 L. Saturations are 99%. Use with aspiration precautions. The patient did complete a full course of REM the patient continues on factor X a inhibitor. The patient also continues on Decadron. The patient is on meropenem, and fluconazole. Additional recommendations and suggestions are forthcoming. PEG tube to be placed. Plan dated 01/15/2022. The patient appears be doing well. Currently on room air. The patient's getting saline at 20 mL an hour. No new labs today other than a blood glucose. We will continue to follow. The patient remains on albuterol inhaler, Decadron, meropenem, and fluconazole. Plan dated 01/16/2022. The patient's currently on room air. The patient continues and albuterol inhaler, a factor X a inhibitor, Decadron, meropenem, and voriconazole as per infectious diseases. We will continue to follow. Prognosis is guarded.No additional recommendations are made. Time with Patient: Less than 30
[2022-01-16] MEDS: VORICONAZOLE 200 MG TAB PO SCH ×2 (16:04→21:25)
[2022-01-16] MEDS: MULTIVITAMINS, THERA LIQUID 237 ML BOTTLE PEG/G-TUBE SCH (16:05)
[2022-01-16 18:04] LABS: Glucose,Whole Blood 145 mg/dL (70-110)
[2022-01-16] MEDS: INSULIN DETEMIR (LEVEMIR) 100 UNIT/ML SYR SQ SCH (21:25)
[2022-01-16] MEDS: APIXABAN 5 MG TAB PO SCH (21:25)
[2022-01-16] MEDS: ATORVASTATIN 80 MG TAB PEG/G-TUBE SCH (21:25)
[2022-01-16] MEDS: ACETAMINOPHEN TAB 325 MG TAB PEG/G-TUBE PRN (23:16)
--- NOTE | 2022-01-16 23:55 | P.PN ---
Subjective Progress Note Date: 01/16/22 Principal diagnosis: Fevers/(UTI Patient is a 51 year old male with developmental delay CVA TIA diabetes recent surgery for the left hip muscle flap [facility] and the patient has been on IV meropenem presenting to the hospital for weakness diagnosed with a covid 19 did have a new fever concerning for possible catheter associated urinary tract infection. On today's evaluation that is 01/16/2022 patient is afebrile patient is breathing comfortably room air denies any chest pain or shortness of the cough no nausea vomiting no abdominal pain no diarrhea Objective - Vital Signs Vital signs: Vital Signs Temp 97.9 F 01/16/22 09:51 Pulse 99 01/16/22 09:51 Resp 16 01/16/22 09:51 BP 128/74 01/16/22 09:51 Pulse Ox 91 L 01/16/22 09:51 FiO2 50 01/12/22 11:26 Intake & Output 01/15/22 01/16/22 01/16/22 18:59 06:59 18:59 Intake Total 20 10 Output Total 485 525 Balance -465 -515 Weight 79.5 kg Intake: IV 20 10 Invasive Line 9 20 10 Output: Drainage 40 Left Hip 10 Left Thigh 30 Urine 345 525 Uretheral (Robins) 345 Stool 100 Other: Voiding Method Indwelling Catheter Indwelling Catheter - Exam GENERAL DESCRIPTION: Middle-aged male lying in bed in no distress RESPIRATORY SYSTEM: Unlabored breathing , decreased breath sounds at bases HEART: S1 S2 regular rate and rhythm , ABDOMEN: Soft , no tenderness EXTREMITIES: No edema feet - Labs CBC & Chem 7: 01/14/22 11:05 01/14/22 11:05 Labs: Abnormal Lab Results - Last 24 Hours (Table) 01/15/22 01/16/22 01/16/22 Range/Units 18:27 05:58 11:58 POC Glucose (mg/dL) 111 H 118 H 143 H (70-110) mg/dL Microbiology - Last 24 Hours (Table) 01/12/22 23:32 Blood Culture - Preliminary Blood No Growth after 72 hours 01/13/22 09:15 Urine Culture - Final Urine,Voided Sherron glabrata Assessment and Plan (1) Urinary tract infection Current Visit: Yes Status: Acute Code(s): N39.0 - URINARY TRACT INFECTION, SITE NOT SPECIFIED SNOMED Code(s): 30591178 Plan: 1patient with sepsis in this patient with a fever elevated white count could be related to catheter associated tract infection in this patient with a chronic indwelling Robins catheter and did have significant positive UA with evidence of yeast. 2patient also have a infection to the left hip area this patient with recent muscle flap surgery and is getting meropenem 3patient with a covid19 infection overall respiratory status seems to be stable and improving pain no worsening pneumonia reported on the chest x-ray on 01/12/2022 4 patient fever has resolved likely related to catheter associated UTI , Urine culture currently showing Sherron glabrata we will switch Diflucan to voriconazole which the patient may need for about 5 days to finish course of therapy Time with Patient: Less than 30
[2022-01-17 00:16] LABS: Glucose,Whole Blood 104 mg/dL (70-110)
[2022-01-17 00:38] LABS: Anisocytosis Moderate; HCT 27.9 % (39.0-53.0); HGB 8.7 gm/dL (13.0-17.5); Hypochromasia Marked; MCH 25.2 pg (25.0-35.0); MCHC 31.1 g/dL (31.0-37.0); MCV 81.1 fL (80.0-100.0); Mean Platelet Volume 7.4; Microcytosis Slight; Platelet Count 528 k/uL (150-450); Poikilocytosis Slight; RBC 3.45 m/uL (4.30-5.90); RDW 20.8 % (11.5-15.5); WBC 6.2 k/uL (3.8-10.6)
[2022-01-17] MEDS: SENNOSIDES 8.6 MG TAB PEG/G-TUBE SCH ×5 (06:00→23:41)
[2022-01-17 06:04] LABS: Glucose,Whole Blood 138 mg/dL (70-110)
[2022-01-17 07:55] LABS: Anisocytosis Moderate; Basophils % (A) 1 %; Eosinophils # (A) 0.2 k/uL (0-0.7); Eosinophils % (A) 3 %; HCT 29.1 % (39.0-53.0); HGB 8.7 gm/dL (13.0-17.5); Hypochromasia Marked; Lymphocytes # (A) 1.4 k/uL (1.0-4.8); Lymphocytes % (A) 23 %; MCH 24.5 pg (25.0-35.0); MCHC 29.9 g/dL (31.0-37.0); MCV 81.7 fL (80.0-100.0); Mean Platelet Volume 8.4; Microcytosis Slight; Monocytes # (A) 0.5 k/uL (0-1.0); Monocytes % (A) 8 %; Neutrophils # (A) 3.8 k/uL (1.3-7.7); Neutrophils % (A) 65 %; Platelet Count 522 k/uL (150-450); RBC 3.56 m/uL (4.30-5.90); RDW 20.7 % (11.5-15.5); WBC 5.9 k/uL (3.8-10.6)
[2022-01-17 08:09] LABS: ALT 20 U/L (4-49); AST 24 U/L (17-59); African American GFR (CKD) >90 (>60 ml/min/1.73 sqM); Albumin 3.1 g/dL (3.5-5.0); Alkaline Phosphatase 151 U/L (38-126); Anion Gap 8 mmol/L; Blood Urea Nitrogen 9 mg/dL (9-20); Calcium 8.1 mg/dL (8.4-10.2); Carbon Dioxide 31 mmol/L (22-30); Chloride 107 mmol/L (98-107); Glucose 117 mg/dL (74-99); Magnesium 1.9 mg/dL (1.6-2.3); Non-African American GFR(CKD) >90 (>60 ml/min/1.73 sqM); Phosphorus 3.4 mg/dL (2.5-4.5); Potassium 3.1 mmol/L (3.5-5.1); Sodium 146 mmol/L (137-145); Total Bilirubin 0.4 mg/dL (0.2-1.3); Total Protein 6.1 g/dL (6.3-8.2)
[2022-01-17] MEDS: ALBUTEROL HFA INHALER INHALATION SCH ×4 (08:23→20:49)
[2022-01-17 08:44] LABS: C Reactive Protein 1.5 mg/dL (<1.0)
[2022-01-17 09:45] LABS: Polychromasia Present
[2022-01-17] MEDS ORDERED: POTASSIUM BICARBONATE/CIT AC 20 MEQ TABLET.EFF PEG/G-TUBE ONE (10:05)
--- NOTE | 2022-01-17 10:12 | P.PN ---
Subjective Progress Note Date: 01/17/22 Principal diagnosis: SOB Hospital Course: 51-year-old male with history of CVA/TIA, intellectual disability, TBI, diabetes, dyslipidemia, depression, recent DVT provoked on Eliquis presenting with shortness of breath. Currently being treated for hypoxic respiratory failure secondary to COVID-19 pneumonia. Patient was recently hospitalized at [facility] for left hip skin/muscle flap reconstruction, infected, on meropenem. During that hospitalization he developed a DVT, now on Eliquis, currently held. Being treated with Decadron and Remdesivir (completed course). Patient has severe dysphagia and esophageal strictures. He underwent EGD with dilation on 12/13. Had a repeat EGD and PEG tube placed on 01/14. Pulmonology and infectious disease also following. Urology also consulted for neurogenic bladder and urinary retention, no interventions planned. Now on room air, likely discharge in 1-2 days once PEG tube feeds are at goal. Subjective: Patient seen and examined at bedside. He had low-grade fevers overnight. He denies any shortness of breath, chest pain, abdominal pain, nausea, vomiting, diarrhea, or constipation. He has a Samaniego cath in place. PEG tube feeds running at 40 mL an hour, patient tolerating well. Pertinent positives and negatives as discussed above, a complete review of systems was performed and all other systems are negative. Vitals Signs Reviewed. General: non toxic, no distress, appears at stated age Derm: warm, dry Head: History of prior trauma, symmetric Eyes: EOMI, no lid lag, anicteric sclera, left eye shut Mouth: no lip lesion, mucus membranes moist Cardiovascular: S1S2 reg, no murmur, Lungs: Clear to auscultation bilaterally, room air Abdominal: soft, nontender to palpation, no guarding, no appreciable organomegaly, left-sided ostomy bag, PEG tube site clean and dry Ext: no gross muscle atrophy, no edema, no contractures, flaccid paralysis of left lower extremity, has 2 drains on the left side Neuro: CN II-XI grossly intact, no focal neuro deficits Psych: Alert, oriented, appropriate affect Assessment and Plan: Acute hypoxic respiratory failure, resolved Acute COVID-19 pneumonia Febrile -Remains on steroids -remdesivir completed course -Duonebs -Pulmonology following -also s/p IV lasix once -ID consulted Hypokalemia -Replete and monitor Recent provoked DVT -On Eliquis Normocytic anemia -Hemoglobin stable Recent left hip skin flap surgery, infection Leukocytosis -Continue meropenem -ID consulted Dysphagia -Failed swallowing evaluation -PEG feeding tube placement attempted on 01/11, failed due to esophageal strictures, these were dilated. -Repeat EGD and PEG tube placement on 01/14 Neurogenic bladder chronic urinary retention - UA showed yeast - has samaniego in place since admission - Ucx no growth - ID and urology following - on diflucan Mild hypernatremia -Now on PEG tube History of TBI History of developmental delay Dyslipidemia -Medications reviewed and reconciled DVT ppx: Eliquis Code status: Full code Anticipated discharge place: Home Anticipated discharge time: In 1-2 days once PEG tube feeds are at goal Objective - Vital Signs Vital signs: Vital Signs Temp 99.7 F H 01/17/22 04:00 Pulse 90 01/17/22 04:00 Resp 18 01/17/22 04:00 BP 136/65 01/17/22 04:00 Pulse Ox 92 L 01/17/22 04:00 FiO2 50 01/12/22 11:26 Intake & Output 01/16/22 01/17/22 01/17/22 18:59 06:59 18:59 Output Total 700 46 Balance -700 -46 Weight 79.5 kg Output: Drainage 46 Left Hip 0 Left Thigh 46 Urine 250 Stool 450 Other: Voiding Method Indwelling Catheter Indwelling Catheter - Labs CBC & Chem 7: 01/17/22 06:51 01/17/22 06:51 Labs: Abnormal Lab Results - Last 24 Hours (Table) 01/16/22 01/16/22 01/17/22 Range/Units 11:58 18:01 00:19 RBC 3.45 L (4.30-5.90) m/uL Hgb 8.7 L (13.0-17.5) gm/dL Hct 27.9 L (39.0-53.0) % MCH (25.0-35.0) pg MCHC (31.0-37.0) g/dL RDW 20.8 H (11.5-15.5) % Plt Count 528 H (150-450) k/uL Sodium (137-145) mmol/L Potassium (3.5-5.1) mmol/L Carbon Dioxide (22-30) mmol/L Creatinine (0.66-1.25) mg/dL Glucose (74-99) mg/dL POC Glucose (mg/dL) 143 H 145 H (70-110) mg/dL Calcium (8.4-10.2) mg/dL Alkaline Phosphatase (38-126) U/L C-Reactive Protein (<1.0) mg/dL Total Protein (6.3-8.2) g/dL Albumin (3.5-5.0) g/dL 01/17/22 01/17/22 01/17/22 Range/Units 06:02 06:51 06:51 RBC 3.56 L (4.30-5.90) m/uL Hgb 8.7 L (13.0-17.5) gm/dL Hct 29.1 L (39.0-53.0) % MCH 24.5 L (25.0-35.0) pg MCHC 29.9 L (31.0-37.0) g/dL RDW 20.7 H (11.5-15.5) % Plt Count 522 H (150-450) k/uL Sodium 146 H (137-145) mmol/L Potassium 3.1 L (3.5-5.1) mmol/L Carbon Dioxide 31 H (22-30) mmol/L Creatinine 0.41 L (0.66-1.25) mg/dL Glucose 117 H (74-99) mg/dL POC Glucose (mg/dL) 138 H (70-110) mg/dL Calcium 8.1 L (8.4-10.2) mg/dL Alkaline Phosphatase 151 H (38-126) U/L C-Reactive Protein 1.5 H (<1.0) mg/dL Total Protein 6.1 L (6.3-8.2) g/dL Albumin 3.1 L (3.5-5.0) g/dL Microbiology - Last 24 Hours (Table) 01/12/22 23:32 Blood Culture - Preliminary Blood No Growth after 96 hours
--- NOTE | 2022-01-17 10:16 | FL ---
EXAMINATION TYPE: FL barium swallow w video DATE OF EXAM: 01/17/2022 CLINICAL HISTORY: 51-year-old male dysphagia, reassess after PEG tube placement and esophageal dilata tion. TECHNIQUE: Deglutition study is performed utilizing thin liquid barium, honey and nectar thick liqui d barium, barium thick pudding, and barium coated cracker. COMPARISON: None. Total fluoroscopy time: 2 minutes 16 seconds. Total images: None. Real-time fluoroscopy support was provided to speech pathology. FINDINGS: The patient is kyphotic. The oral and pharyngeal phases show satisfactory initiation and propagation with all modalities tested. Normal mastication is seen with solid modalities tested. There may be a couple transient episodes of penetration with thin liquids. Otherwise, there is no evidence of penet ration or aspiration with any modality tested. No significant pharyngeal residue was appreciated. IMPRESSION: Functional swallow. Please refer to speech therapist notes for further details if necessary.
[2022-01-17] MEDS: MEROPENEM 1 GM in SODIUM CHLORIDE 0.9% 100 ML IVPB SCH ×3 (10:24→23:44)
[2022-01-17] MEDS: PANTOPRAZOLE 40 MG/10 ML VIAL IVP SCH ×2 (10:25→21:51)
[2022-01-17] MEDS: APIXABAN 5 MG TAB PO SCH ×2 (10:25→21:50)
[2022-01-17] MEDS: lamoTRIgine 100 MG TAB PEG/G-TUBE SCH (10:25)
[2022-01-17] MEDS: polyethylene glycoL 3350 17 GM POWD.PACK PEG/G-TUBE SCH ×2 (10:26→21:51)
[2022-01-17] MEDS: GABAPENTIN 300 MG CAP PO SCH ×3 (10:26→21:50)
[2022-01-17] MEDS: DEXAMETHASONE SOD PHOSPHATE 4 MG/ML 1 ML VIAL IVP SCH (10:26)
[2022-01-17] MEDS: VORICONAZOLE 200 MG TAB PO SCH ×2 (10:27→21:52)
[2022-01-17] MEDS: MULTIVITAMINS, THERA LIQUID 237 ML BOTTLE PEG/G-TUBE SCH (11:50)
[2022-01-17 12:00] LABS: Glucose,Whole Blood 181 mg/dL (70-110)
--- NOTE | 2022-01-17 12:14 | P.PN ---
Subjective Progress Note Date: 01/17/22 Principal diagnosis: Shortness of breath. Reevaluated today on 01/11/22, patient is on 3 L nasal cannula, doing well, not in any distress, patient is scheduled to have a PEG tube placed today. Remains on the COVID-19 cocktail. Remains on antibiotics. Overall the patient is doing better than expected. WBC count is 5.6 hemoglobin 8.4 lites are normal renal profile is normal Reevaluated today on 02/08/22, patient is doing well, however around 1 AM last night, patient was placed for some reason on BiPAP, his chest x-ray today is reassuring, he continues to have minimal left basilar opacity/consistent with pneumonia, but slightly improved compared to the admission chest x-ray. His O2 saturation on 3 L was 98%, apparently the patient felt more comfortable with the BiPAP 50% FiO2. However needs to be placed back on nasal cannula. Patient had uneventful PEG tube placement yesterday, and he will be started on enteral feeding likely today. Electrolytes are normal renal profile is normal CBC showed a low hemoglobin of 8.4 which is about his baseline Reevaluated today on 01/13/22, patient is doing well, I found out today that the patient did not have placement of the PEG tube, they could not have it placed, and is scheduled to have it done again tomorrow. In the meantime his pulmonary status is about the same, he remains on 3 L nasal cannula, and O2 saturations 94%. Patient is not in any distress chest x-ray from yesterday showed improvement in his infiltrates, he has minimal left basilar infiltrate. Patient remains on COVID-19 cocktail, remains on antibiotics patient has been on Merrem all along. Labs today were unremarkable, his urine seems to be infected, urine cultures are pending, urinalysis is highly suggestive of UTI Progress note dated 01/14/2022. The patient appears to be doing relatively well. He seen again in room 352. He's currently on 3 L of oxygen. Saturations are 99%. He is getting saline at 50 mL an hour. There is no audible wheezing, use of accessory muscles, or conversational dyspnea. The patient's on meropenem, and fluconazole. White count 12.1, hemoglobin 8.9, hematocrit 30.7, platelet count 459,000. Sodium 142, potassium 3.6, chlorides 109, CO2 22, BUN 7, creatinine 0.31. Urine suggested urinary tract infection. Progress note dated 01/15/2022. 51-year-old male again seen in room 352. He is resting comfortably. Not on any supplemental oxygen. Getting saline at 20 mL an hour. No new blood work today other than a glucose of 144. The patient states that he's feeling fine. He is not particularly talkative. He appears in no distress. No conversational dyspnea, or, use of accessory muscles. Progress note dated 01/16/2022. 51-year-old male seen again in room 352. He is resting comfortably. He's getting Glucerna at 30 mL an hour. Saline at 20 mL an hour. He is not on any supplemental oxygen. No new labs today other than a blood glucose of 143. Progress note dated 01/17/2022. 51-year-old male, again seen in room 352. The patient's currently on room air. Is not receiving any IV fluids. He is receiving Moody at 40 mL an hour. He has no complaints today. He's feeling well. He apparently passed a swallow evaluation. White count 5.9, hemoglobin 8.7, hematocrit 29.1, and platelet count 522,000. Sodium 146, potassium 3.1, chlorides 107, CO2 31, BUN 9, creatinine 0.41. Objective - Vital Signs Vital signs: Vital Signs Temp 99.7 F H 01/17/22 04:00 Pulse 101 H 01/17/22 11:02 Resp 20 01/17/22 11:02 BP 128/68 01/17/22 11:00 Pulse Ox 93 L 01/17/22 11:00 FiO2 50 01/12/22 11:26 Intake & Output 01/16/22 01/17/22 01/17/22 18:59 06:59 18:59 Intake Total 240 Output Total 700 46 700 Balance -700 -46 -460 Weight 79.5 kg Intake: Oral 240 Output: Drainage 46 0 Left Hip 0 0 Left Thigh 46 0 Urine 250 550 Stool 450 150 Other: Voiding Method Indwelling Catheter Indwelling Catheter Indwelling Catheter - Exam No acute distress, oriented 3. Currently on 93% room air. HEENT examination is grossly unremarkable. Evidence of previous trauma noted. Neck supple. Full range of motion. No adenopathy thyromegaly or neck vein distention. Cardiovascular examination reveals regular rhythm rate. S1-S2 normal. No S3 or S4. No discernible murmur noted. Heart rate 89 bpm. Lungs reveal crackles at the left base. No rhonchi. No wheezes. Saturations are excellent, at 93 %. Abdomen soft bowel sounds are heard. No masses or tenderness. Extremities reveal patient to be paraplegic. No cyanosis or clubbing. Skin is without rash or lesion. Neurologic examination as above. - Labs CBC & Chem 7: 01/17/22 06:51 01/17/22 06:51 Labs: Abnormal Lab Results - Last 24 Hours (Table) 01/16/22 01/16/22 01/17/22 Range/Units 11:58 18:01 00:19 RBC 3.45 L (4.30-5.90) m/uL Hgb 8.7 L (13.0-17.5) gm/dL Hct 27.9 L (39.0-53.0) % MCH (25.0-35.0) pg MCHC (31.0-37.0) g/dL RDW 20.8 H (11.5-15.5) % Plt Count 528 H (150-450) k/uL Sodium (137-145) mmol/L Potassium (3.5-5.1) mmol/L Carbon Dioxide (22-30) mmol/L Creatinine (0.66-1.25) mg/dL Glucose (74-99) mg/dL POC Glucose (mg/dL) 143 H 145 H (70-110) mg/dL Calcium (8.4-10.2) mg/dL Alkaline Phosphatase (38-126) U/L C-Reactive Protein (<1.0) mg/dL Total Protein (6.3-8.2) g/dL Albumin (3.5-5.0) g/dL 01/17/22 01/17/22 01/17/22 Range/Units 06:02 06:51 06:51 RBC 3.56 L (4.30-5.90) m/uL Hgb 8.7 L (13.0-17.5) gm/dL Hct 29.1 L (39.0-53.0) % MCH 24.5 L (25.0-35.0) pg MCHC 29.9 L (31.0-37.0) g/dL RDW 20.7 H (11.5-15.5) % Plt Count 522 H (150-450) k/uL Sodium 146 H (137-145) mmol/L Potassium 3.1 L (3.5-5.1) mmol/L Carbon Dioxide 31 H (22-30) mmol/L Creatinine 0.41 L (0.66-1.25) mg/dL Glucose 117 H (74-99) mg/dL POC Glucose (mg/dL) 138 H (70-110) mg/dL Calcium 8.1 L (8.4-10.2) mg/dL Alkaline Phosphatase 151 H (38-126) U/L C-Reactive Protein 1.5 H (<1.0) mg/dL Total Protein 6.1 L (6.3-8.2) g/dL Albumin 3.1 L (3.5-5.0) g/dL 01/17/22 Range/Units 11:56 RBC (4.30-5.90) m/uL Hgb (13.0-17.5) gm/dL Hct (39.0-53.0) % MCH (25.0-35.0) pg MCHC (31.0-37.0) g/dL RDW (11.5-15.5) % Plt Count (150-450) k/uL Sodium (137-145) mmol/L Potassium (3.5-5.1) mmol/L Carbon Dioxide (22-30) mmol/L Creatinine (0.66-1.25) mg/dL Glucose (74-99) mg/dL POC Glucose (mg/dL) 181 H (70-110) mg/dL Calcium (8.4-10.2) mg/dL Alkaline Phosphatase (38-126) U/L C-Reactive Protein (<1.0) mg/dL Total Protein (6.3-8.2) g/dL Albumin (3.5-5.0) g/dL Microbiology - Last 24 Hours (Table) 01/12/22 23:32 Blood Culture - Preliminary Blood No Growth after 96 hours Assessment and Plan Assessment: Acute hypoxemic respiratory failure, secondary to coronavirus associated pneumonia. History of previous traumatic brain injury and paraplegia. Recent surgery to the left hip, and subsequent post-procedure DVT. History of developmental delay. History of possible aspiration pneumonia. Possible urinary tract infection. Plan: Plan dated 01/14/2022. The patient continues on oxygen. He is on 3 L. Saturations are 99%. Use with aspiration precautions. The patient did complete a full course of REM the pa tient continues on factor X a inhibitor. The patient also continues on Decadron. The patient is on meropenem, and fluconazole. Additional recommendations and suggestions are forthcoming. PEG tube to be placed. Plan dated 01/15/2022. The patient appears be doing well. Currently on room air. The patient's getting saline at 20 mL an hour. No new labs today other than a blood glucose. We will continue to follow. The patient remains on albuterol inhaler, Decadron, meropenem, and fluconazole. Plan dated 01/16/2022. The patient's currently on room air. The patient continues and albuterol inhaler, a factor X a inhibitor, Decadron, meropenem, and voriconazole as per infectious diseases. We will continue to follow. Prognosis is guarded.No additional recommendations are made. Plan dated 01/17/2022. The patient appears to be doing relatively well. He is on room air. No IV fluids. He did apparently passed his swallow evaluation. Medications are appropriate. We will continue to follow make recommendations along the way. Prognosis is guarded. The patient is currently on voriconazole, meropenem, Decadron, and factor X a inhibitor. Time with Patient: Less than 30
--- NOTE | 2022-01-17 13:04 | P.PN ---
Subjective Progress Note Date: 01/17/22 CHIEF COMPLAINT: Dysphagia HISTORY OF PRESENT ILLNESS: Patient is status post EGD with PEG tube placement and esophageal dilation. Results showed a hiatal hernia, gastric polyps, distal esophagitis and esophageal stricture. Patient is tolerating tube feeds. Tube feeds are currently a 40 mL per hour. Patient denies any abdominal pain. Denies any nausea or vomiting. Patient passed a swallow eval this morning with speech therapy. Patient will be started on a chopped diet. Afebrile. Patient did have a low-grade temp of 100.3 last night. WBC is 5.9 Hgb 8.7 0.522 sons 146 potassium 3.1 creatinine 0.41 PHYSICAL EXAM: VITAL SIGNS: Reviewed. GENERAL: Well-developed in no acute distress. HEENT: No sclera icterus. Extraocular movements grossly intact. Moist buccal mucosa. Head is atraumatic, normocephalic. ABDOMEN: Soft. Nondistended. Nontender. PEG tube site clean dry and intact NEUROLOGIC: Alert and oriented. Cranial nerves II through XII grossly intact. ASSESSMENT: 1. Dysphagia status post PEG tube placement 2. Moderate protein calorie malnutrition 3. Esophageal stricture status post EGD with dilation x 2 4. Hypokalemia PLAN: -Patient started on chopped diet -Tube feeding recommendations per dietitian -Continue supportive care -Potassium being replaced Physician Ip Counsel note has been reviewed by physician. Signing provider agrees with the documented findings, assessment, and plan of care. 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 Based on total visit time, I have performed more than 50% of the visit. As above: Patient feels well today. Denies abdominal pain. Tolerating tube feeds at goal. Repeat swallow evaluation is pending. Objective - Vital Signs Vital signs: Vital Signs Temp 99.7 F H 01/17/22 04:00 Pulse 101 H 01/17/22 11:02 Resp 20 01/17/22 11:02 BP 128/68 01/17/22 11:00 Pulse Ox 93 L 01/17/22 11:00 FiO2 50 01/12/22 11:26 Intake & Output 01/16/22 01/17/22 01/17/22 18:59 06:59 18:59 Intake Total 240 Output Total 700 46 700 Balance -700 -46 -460 Weight 79.5 kg Intake: Oral 240 Output: Drainage 46 0 Left Hip 0 0 Left Thigh 46 0 Urine 250 550 Stool 450 150 Other: Voiding Method Indwelling Catheter Indwelling Catheter Indwelling Catheter - Labs CBC & Chem 7: 01/17/22 06:51 01/17/22 06:51 Labs: Abnormal Lab Results - Last 24 Hours (Table) 01/16/22 01/17/22 01/17/22 Range/Units 18:01 00:19 06:02 RBC 3.45 L (4.30-5.90) m/uL Hgb 8.7 L (13.0-17.5) gm/dL Hct 27.9 L (39.0-53.0) % MCH (25.0-35.0) pg MCHC (31.0-37.0) g/dL RDW 20.8 H (11.5-15.5) % Plt Count 528 H (150-450) k/uL Sodium (137-145) mmol/L Potassium (3.5-5.1) mmol/L Carbon Dioxide (22-30) mmol/L Creatinine (0.66-1.25) mg/dL Glucose (74-99) mg/dL POC Glucose (mg/dL) 145 H 138 H (70-110) mg/dL Calcium (8.4-10.2) mg/dL Alkaline Phosphatase (38-126) U/L C-Reactive Protein (<1.0) mg/dL Total Protein (6.3-8.2) g/dL Albumin (3.5-5.0) g/dL 01/17/22 01/17/22 01/17/22 Range/Units 06:51 06:51 11:56 RBC 3.56 L (4.30-5.90) m/uL Hgb 8.7 L (13.0-17.5) gm/dL Hct 29.1 L (39.0-53.0) % MCH 24.5 L (25.0-35.0) pg MCHC 29.9 L (31.0-37.0) g/dL RDW 20.7 H (11.5-15.5) % Plt Count 522 H (150-450) k/uL Sodium 146 H (137-145) mmol/L Potassium 3.1 L (3.5-5.1) mmol/L Carbon Dioxide 31 H (22-30) mmol/L Creatinine 0.41 L (0.66-1.25) mg/dL Glucose 117 H (74-99) mg/dL POC Glucose (mg/dL) 181 H (70-110) mg/dL Calcium 8.1 L (8.4-10.2) mg/dL Alkaline Phosphatase 151 H (38-126) U/L C-Reactive Protein 1.5 H (<1.0) mg/dL Total Protein 6.1 L (6.3-8.2) g/dL Albumin 3.1 L (3.5-5.0) g/dL Microbiology - Last 24 Hours (Table) 01/12/22 23:32 Blood Culture - Preliminary Blood No Growth after 96 hours
[2022-01-17] MEDS: ACETAMINOPHEN TAB 325 MG TAB PEG/G-TUBE PRN ×2 (15:15→23:50)
[2022-01-17 16:11] LABS: Glucose,Whole Blood 282 mg/dL (70-110)
[2022-01-17 17:00] LABS: Appearance,Urine Clear (Clear); Bilirubin,Urine Negative (Negative); Blood,Urine Large (Negative); Budding Yeast,Urine Few /hpf; Color,Urine Light Yellow; Glucose,Urine (UA) 1+ (Negative); Ketones,Urine Negative (Negative); Leukocyte Esterase,Urine Large (Negative); Mucus,Urine Rare /hpf; Nitrite,Urine Negative (Negative); Protein,Urine Negative (Negative); RBC,Urine 83 /hpf (0-5); Specific Gravity,Urine 1.012 (1.001-1.035); Urobilinogen,Urine <2.0 mg/dL (<2.0); WBC,Urine 65 /hpf (0-5)
[2022-01-17] MEDS: INSULIN ASPART (NovoLOG) 100 UNIT/ML VIAL SQ SCH ×2 (17:05→21:50)
[2022-01-17 20:06] LABS: Glucose,Whole Blood 220 mg/dL (70-110)
[2022-01-17] MEDS: INSULIN DETEMIR (LEVEMIR) 100 UNIT/ML SYR SQ SCH (21:50)
[2022-01-17] MEDS: ATORVASTATIN 80 MG TAB PEG/G-TUBE SCH (21:50)
--- NOTE | 2022-01-17 23:23 | P.PN ---
Subjective Progress Note Date: 01/17/22 Principal diagnosis: Fevers/(UTI Patient is a 51 year old male with developmental delay CVA TIA diabetes recent surgery for the left hip muscle flap [facility] and the patient has been on IV meropenem presenting to the hospital for weakness diagnosed with a covid 19 did have a new fever concerning for possible catheter associated urinary tract infection. On today's evaluation that is 01/27/2022, patient did have low-grade fever of 99.7 around 4 AM the patient is currently breathing comfortably denies any chest pain shortness of breath or cough no abdominal pain no nausea no vomiting reported by the nursing staff Objective - Vital Signs Vital signs: Vital Signs Temp 99.7 F H 01/17/22 04:00 Pulse 101 H 01/17/22 11:02 Resp 20 01/17/22 11:02 BP 128/68 01/17/22 11:00 Pulse Ox 93 L 01/17/22 11:00 FiO2 50 01/12/22 11:26 Intake & Output 01/16/22 01/17/22 01/17/22 18:59 06:59 18:59 Intake Total 628 Output Total 700 46 700 Balance -700 -46 -72 Weight 79.5 kg Intake: Oral 628 Output: Drainage 46 0 Left Hip 0 0 Left Thigh 46 0 Urine 250 550 Stool 450 150 Other: Voiding Method Indwelling Catheter Indwelling Catheter Indwelling Catheter - Exam GENERAL DESCRIPTION: Middle-aged male lying in bed in no distress RESPIRATORY SYSTEM: Unlabored breathing , decreased breath sounds at bases HEART: S1 S2 regular rate and rhythm , ABDOMEN: Soft , no tenderness EXTREMITIES: No edema feet - Labs CBC & Chem 7: 01/17/22 06:51 01/17/22 06:51 Labs: Abnormal Lab Results - Last 24 Hours (Table) 01/16/22 01/17/22 01/17/22 Range/Units 18:01 00:19 06:02 RBC 3.45 L (4.30-5.90) m/uL Hgb 8.7 L (13.0-17.5) gm/dL Hct 27.9 L (39.0-53.0) % MCH (25.0-35.0) pg MCHC (31.0-37.0) g/dL RDW 20.8 H (11.5-15.5) % Plt Count 528 H (150-450) k/uL Sodium (137-145) mmol/L Potassium (3.5-5.1) mmol/L Carbon Dioxide (22-30) mmol/L Creatinine (0.66-1.25) mg/dL Glucose (74-99) mg/dL POC Glucose (mg/dL) 145 H 138 H (70-110) mg/dL Calcium (8.4-10.2) mg/dL Alkaline Phosphatase (38-126) U/L C-Reactive Protein (<1.0) mg/dL Total Protein (6.3-8.2) g/dL Albumin (3.5-5.0) g/dL 01/17/22 01/17/22 01/17/22 Range/Units 06:51 06:51 11:56 RBC 3.56 L (4.30-5.90) m/uL Hgb 8.7 L (13.0-17.5) gm/dL Hct 29.1 L (39.0-53.0) % MCH 24.5 L (25.0-35.0) pg MCHC 29.9 L (31.0-37.0) g/dL RDW 20.7 H (11.5-15.5) % Plt Count 522 H (150-450) k/uL Sodium 146 H (137-145) mmol/L Potassium 3.1 L (3.5-5.1) mmol/L Carbon Dioxide 31 H (22-30) mmol/L Creatinine 0.41 L (0.66-1.25) mg/dL Glucose 117 H (74-99) mg/dL POC Glucose (mg/dL) 181 H (70-110) mg/dL Calcium 8.1 L (8.4-10.2) mg/dL Alkaline Phosphatase 151 H (38-126) U/L C-Reactive Protein 1.5 H (<1.0) mg/dL Total Protein 6.1 L (6.3-8.2) g/dL Albumin 3.1 L (3.5-5.0) g/dL Microbiology - Last 24 Hours (Table) 01/12/22 23:32 Blood Culture - Preliminary Blood No Growth after 96 hours Assessment and Plan (1) Urinary tract infection Current Visit: Yes Status: Acute Code(s): N39.0 - URINARY TRACT INFECTION, SITE NOT SPECIFIED SNOMED Code(s): 81635288 Plan: 1patient with sepsis in this patient with a fever elevated white count could be related to catheter associated tract infection in this patient with a chronic indwelling Robins catheter and did have significant positive UA with evidence of yeast. 2patient also have a infection to the left hip area this patient with recent muscle flap surgery and is getting meropenem 3patient with a covid19 infection overall respiratory status seems to be stable and improving pain no worsening pneumonia reported on the chest x-ray on 01/12/2022 4 patient fever has resolved likely related to catheter associated UTI , Urine culture currently showing Sherron glabrata, pt to continue with voriconazole for about 5 days to finish course of therapy Time with Patient: Less than 30
[2022-01-18] MEDS: SENNOSIDES 8.6 MG TAB PEG/G-TUBE SCH ×5 (06:17→23:54)
[2022-01-18 06:18] LABS: Glucose,Whole Blood 151 mg/dL (70-110)
[2022-01-18] MEDS: INSULIN ASPART (NovoLOG) 100 UNIT/ML VIAL SQ SCH ×4 (06:18→20:24)
[2022-01-18] MEDS: ALBUTEROL HFA INHALER INHALATION SCH ×4 (08:30→20:48)
--- NOTE | 2022-01-18 08:51 | XR ---
EXAMINATION TYPE: XR chest 1V portable DATE OF EXAM: 01/18/2022 CLINICAL HISTORY: Fever . TECHNIQUE: Single AP portable upright view of the chest is obtained. COMPARISON: Chest x-ray from 6 days earlier FINDINGS: Patchy left basilar opacity remains present. Right lung remains clear. Cardiac silhouette size stable within normal limits. Old fracture deformity distal right clavicle redemonstrated. 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 IMPRESSION: Stable left basilar opacity consistent with acute infiltrate and/or atelectasis. No new i nfiltrate seen.
[2022-01-18 09:26] LABS: African American GFR (CKD) >90 (>60 ml/min/1.73 sqM); Anion Gap 6 mmol/L; Blood Urea Nitrogen 12 mg/dL (9-20); Calcium 8.2 mg/dL (8.4-10.2); Carbon Dioxide 34 mmol/L (22-30); Chloride 100 mmol/L (98-107); Glucose 119 mg/dL (74-99); Magnesium 2.1 mg/dL (1.6-2.3); Non-African American GFR(CKD) >90 (>60 ml/min/1.73 sqM); Potassium 3.7 mmol/L (3.5-5.1); Sodium 140 mmol/L (137-145)
[2022-01-18 09:39] LABS: Anisocytosis Moderate; Basophils % (A) 0 %; Eosinophils # (A) 0.1 k/uL (0-0.7); Eosinophils % (A) 1 %; HCT 28.7 % (39.0-53.0); HGB 8.2 gm/dL (13.0-17.5); Hypochromasia Marked; Lymphocytes # (A) 1.1 k/uL (1.0-4.8); Lymphocytes % (A) 12 %; MCH 23.2 pg (25.0-35.0); MCHC 28.5 g/dL (31.0-37.0); MCV 81.2 fL (80.0-100.0); Mean Platelet Volume 9.2; Microcytosis Slight; Monocytes # (A) 0.6 k/uL (0-1.0); Monocytes % (A) 6 %; Neutrophils % (A) 79 %; Platelet Count 537 k/uL (150-450); RBC 3.54 m/uL (4.30-5.90); RDW 20.4 % (11.5-15.5); WBC 8.9 k/uL (3.8-10.6)
[2022-01-18] MEDS: VORICONAZOLE 200 MG TAB PO SCH ×2 (09:47→20:20)
[2022-01-18] MEDS: DEXAMETHASONE SOD PHOSPHATE 4 MG/ML 1 ML VIAL IVP SCH (09:47)
[2022-01-18] MEDS: lamoTRIgine 100 MG TAB PEG/G-TUBE SCH (09:47)
[2022-01-18] MEDS: GABAPENTIN 300 MG CAP PO SCH ×3 (09:47→19:58)
[2022-01-18] MEDS: MULTIVITAMINS, THERA LIQUID 237 ML BOTTLE PEG/G-TUBE SCH (09:47)
[2022-01-18] MEDS: APIXABAN 5 MG TAB PO SCH ×2 (09:47→19:58)
[2022-01-18] MEDS: PANTOPRAZOLE 40 MG/10 ML VIAL IVP SCH ×2 (09:48→19:57)
[2022-01-18] MEDS: polyethylene glycoL 3350 17 GM POWD.PACK PEG/G-TUBE SCH ×2 (09:48→19:57)
[2022-01-18] MEDS: MEROPENEM 1 GM in SODIUM CHLORIDE 0.9% 100 ML IVPB SCH ×4 (09:49→23:54)
[2022-01-18 10:10] LABS: Poikilocytosis (M) Present; Polychromasia Present
--- NOTE | 2022-01-18 10:35 | P.PN ---
Subjective Progress Note Date: 01/18/22 Principal diagnosis: SOB Hospital Course: 51-year-old male with history of CVA/TIA, intellectual disability, TBI, diabetes, dyslipidemia, depression, recent DVT provoked on Eliquis presenting with shortness of breath. Currently being treated for hypoxic respiratory failure secondary to COVID-19 pneumonia. Patient was recently hospitalized at [facility] for left hip skin/muscle flap reconstruction, infected, on meropenem. During that hospitalization he developed a DVT, now on Eliquis, currently held. Being treated with Decadron and Remdesivir (completed course). Patient has severe dysphagia and esophageal strictures. He underwent EGD with dilation on 12/13. Had a repeat EGD and PEG tube placed on 01/14. Pulmonology and infectious disease also following. Urology also consulted for neurogenic bladder and urinary retention, no interventions planned. Now on room air. Patient did pass his swallow eval, able to tolerate oral food. He will still get some PEG tube feeds to meet his nutritional goal. Patient also started to spike fevers, unknown etiology. Subjective: Patient seen and examined at bedside. He had fevers overnight. He denies any sh ortness of breath, chest pain, abdominal pain, nausea, vomiting, diarrhea, or constipation. He has a Robins cath in place. Patient able to tolerate oral intake, denies any aspiration event. Pertinent positives and negatives as discussed above, a complete review of systems was performed and all other systems are negative. Vitals Signs Reviewed. General: non toxic, no distress, appears at stated age Derm: warm, dry Head: History of prior trauma, symmetric Eyes: EOMI, no lid lag, anicteric sclera, left eye shut Mouth: no lip lesion, mucus membranes moist Cardiovascular: S1S2 reg, no murmur, Lungs: Clear to auscultation bilaterally, room air Abdominal: soft, nontender to palpation, no guarding, no appreciable organomegaly, left-sided ostomy bag, PEG tube site clean and dry Ext: no gross muscle atrophy, no edema, no contractures, flaccid paralysis of left lower extremity, has 2 drains on the left side Neuro: CN II-XI grossly intact, no focal neuro deficits Psych: Alert, oriented, appropriate affect Assessment and Plan: Fever of unknown origin -Chest x-ray shows no new infiltrate -Repeat UA and urine culture -We'll get lower extremity Dopplers -Blood cultures pending -ID following -Remains on meropenem and voriconazole Acute hypoxic respiratory failure, resolved Acute COVID-19 pneumonia -Completed steroid course -remdesivir completed course -Duonebs -Pulmonology following -also s/p IV lasix once Hypokalemia - resolved Recent provoked DVT -On Eliquis Normocytic anemia -Hemoglobin stable Recent left hip skin flap surgery, infection Leukocytosis -resolved -Continue meropenem -ID following Dysphagia -Failed swallowing evaluation -PEG feeding tube placement attempted on 01/11, failed due to esophageal strictures, these were dilated. -Repeat EGD and PEG tube placement on 01/14 Neurogenic bladder chronic urinary retention Sherron UTI Mild hypernatremia - resolved History of TBI History of developmental delay Dyslipidemia -Medications reviewed and reconciled DVT ppx: Eliquis Code status: Full code Anticipated discharge place: Home Anticipated discharge time: Pending clinical course Objective - Vital Signs Vital signs: Vital Signs Temp 100.6 F H 01/18/22 06:17 Pulse 94 01/18/22 04:00 Resp 18 01/18/22 04:00 BP 109/56 01/18/22 04:00 Pulse Ox 94 L 01/18/22 04:00 FiO2 50 01/12/22 11:26 Intake & Output 01/17/22 01/18/22 01/18/22 18:59 06:59 18:59 Intake Total 628 540 0 Output Total 1175 535 Balance -547 5 0 Weight 86.5 kg Intake: Oral 628 540 0 Output: Drainage 0 35 Left Hip 0 15 Left Thigh 0 20 Urine 1025 500 Stool 150 Other: Voiding Method Indwelling Catheter Indwelling Catheter - Labs CBC & Chem 7: 01/18/22 07:56 01/18/22 07:56 Labs: Abnormal Lab Results - Last 24 Hours (Table) 01/17/22 01/17/22 01/17/22 Range/Units 11:56 16:09 16:49 RBC (4.30-5.90) m/uL Hgb (13.0-17.5) gm/dL Hct (39.0-53.0) % MCH (25.0-35.0) pg MCHC (31.0-37.0) g/dL RDW (11.5-15.5) % Plt Count (150-450) k/uL Carbon Dioxide (22-30) mmol/L Creatinine (0.66-1.25) mg/dL Glucose (74-99) mg/dL POC Glucose (mg/dL) 181 H 282 H (70-110) mg/dL Calcium (8.4-10.2) mg/dL Urine Glucose (UA) 1+ H (Negative) Urine Blood Large H (Negative) Ur Leukocyte Esterase Large H (Negative) Urine RBC 83 H (0-5) /hpf Urine WBC 65 H (0-5) /hpf Urine Mucus Rare H (None) /hpf Urine Yeast (Budding) Few H (None) /hpf 01/17/22 01/18/22 01/18/22 Range/Units 20:05 06:17 07:56 RBC 3.54 L (4.30-5.90) m/uL Hgb 8.2 L (13.0-17.5) gm/dL Hct 28.7 L (39.0-53.0) % MCH 23.2 L (25.0-35.0) pg MCHC 28.5 L (31.0-37.0) g/dL RDW 20.4 H (11.5-15.5) % Plt Count 537 H (150-450) k/uL Carbon Dioxide (22-30) mmol/L Creatinine (0.66-1.25) mg/dL Glucose (74-99) mg/dL POC Glucose (mg/dL) 220 H 151 H (70-110) mg/dL Calcium (8.4-10.2) mg/dL Urine Glucose (UA) (Negative) Urine Blood (Negative) Ur Leukocyte Esterase (Negative) Urine RBC (0-5) /hpf Urine WBC (0-5) /hpf Urine Mucus (None) /hpf Urine Yeast (Budding) (None) /hpf 01/18/22 Range/Units 07:56 RBC (4.30-5.90) m/uL Hgb (13.0-17.5) gm/dL Hct (39.0-53.0) % MCH (25.0-35.0) pg MCHC (31.0-37.0) g/dL RDW (11.5-15.5) % Plt Count (150-450) k/uL Carbon Dioxide 34 H (22-30) mmol/L Creatinine 0.47 L (0.66-1.25) mg/dL Glucose 119 H (74-99) mg/dL POC Glucose (mg/dL) (70-110) mg/dL Calcium 8.2 L (8.4-10.2) mg/dL Urine Glucose (UA) (Negative) Urine Blood (Negative) Ur Leukocyte Esterase (Negative) Urine RBC (0-5) /hpf Urine WBC (0-5) /hpf Urine Mucus (None) /hpf Urine Yeast (Budding) (None) /hpf Microbiology - Last 24 Hours (Table) 01/12/22 23:32 Blood Culture - Preliminary Blood No Growth after 120 hours 01/17/22 16:49 Urine Culture - Preliminary Urine,Voided
--- NOTE | 2022-01-18 11:26 | US ---
EXAMINATION TYPE: US venous doppler duplex LE BI DATE OF EXAM: 01/18/2022 10:41 AM COMPARISON: NONE CLINICAL HISTORY: DVT/fevers. DVT exam limited due to patient legs in brace and cathter unable to mov e well. SIDE PERFORMED: Bilateral TECHNIQUE: The lower extremity deep venous system is examined utilizing real time linear array sonog john with graded compression, doppler sonography and color-flow sonography. VESSELS IMAGED: Common Femoral Vein Deep Femoral Vein Greater Saphenous Vein * Femoral Vein Popliteal Vein Small Saphenous Vein * Proximal Calf Veins (* superficial vessels) Right Leg: Negative for DVT Left Leg: Limited appears to be a clot in the mid to distal Femoral Vein. Grayscale, color doppler, spectral doppler imaging performed of the deep veins of the bilateral lower extremities. There is normal flow, compressibility, vascular waveforms in the right lower extremity .. IMPRESSION: Suboptimal study with suspected clot in the mid to distal left superficial femoral vein. Age indeterminate. Acute etiology must be considered.
--- NOTE | 2022-01-18 13:52 | P.PN ---
Subjective Progress Note Date: 01/18/22 Principal diagnosis: Shortness of breath. Reevaluated today on 01/11/22, patient is on 3 L nasal cannula, doing well, not in any distress, patient is scheduled to have a PEG tube placed today. Remains on the COVID-19 cocktail. Remains on antibiotics. Overall the patient is doing better than expected. WBC count is 5.6 hemoglobin 8.4 lites are normal renal profile is normal Reevaluated today on 02/08/22, patient is doing well, however around 1 AM last night, patient was placed for some reason on BiPAP, his chest x-ray today is reassuring, he continues to have minimal left basilar opacity/consistent with pneumonia, but slightly improved compared to the admission chest x-ray. His O2 saturation on 3 L was 98%, apparently the patient felt more comfortable with the BiPAP 50% FiO2. However needs to be placed back on nasal cannula. Patient had uneventful PEG tube placement yesterday, and he will be started on enteral feeding likely today. Electrolytes are normal renal profile is normal CBC showed a low hemoglobin of 8.4 which is about his baseline Reevaluated today on 01/13/22, patient is doing well, I found out today that the patient did not have placement of the PEG tube, they could not have it placed, and is scheduled to have it done again tomorrow. In the meantime his pulmonary status is about the same, he remains on 3 L nasal cannula, and O2 saturations 94%. Patient is not in any distress chest x-ray from yesterday showed improvement in his infiltrates, he has minimal left basilar infiltrate. Patient remains on COVID-19 cocktail, remains on antibiotics patient has been on Merrem all along. Labs today were unremarkable, his urine seems to be infected, urine cultures are pending, urinalysis is highly suggestive of UTI Progress note dated 01/14/2022. The patient appears to be doing relatively well. He seen again in room 352. He's currently on 3 L of oxygen. Saturations are 99%. He is getting saline at 50 mL an hour. There is no audible wheezing, use of accessory muscles, or conversational dyspnea. The patient's on meropenem, and fluconazole. White count 12.1, hemoglobin 8.9, hematocrit 30.7, platelet count 459,000. Sodium 142, potassium 3.6, chlorides 109, CO2 22, BUN 7, creatinine 0.31. Urine suggested urinary tract infection. Progress note dated 01/15/2022. 51-year-old male again seen in room 352. He is resting comfortably. Not on any supplemental oxygen. Getting saline at 20 mL an hour. No new blood work today other than a glucose of 144. The patient states that he's feeling fine. He is not particularly talkative. He appears in no distress. No conversational dyspnea, or, use of accessory muscles. Progress note dated 01/16/2022. 51-year-old male seen again in room 352. He is resting comfortably. He's getting Glucerna at 30 mL an hour. Saline at 20 mL an hour. He is not on any supplemental oxygen. No new labs today other than a blood glucose of 143. Progress note dated 01/17/2022. 51-year-old male, again seen in room 352. The patient's currently on room air. Is not receiving any IV fluids. He is receiving [place] at 40 mL an hour. He has no complaints today. He's feeling well. He apparently passed a swallow evaluation. White count 5.9, hemoglobin 8.7, hematocrit 29.1, and platelet count 522,000. Sodium 146, potassium 3.1, chlorides 107, CO2 31, BUN 9, creatinine 0.41. Progress note dated 01/18/2022. 51-year-old male again seen in room 352. Currently on room air. Not receiving any IV fluids. He is getting Glucerna at 65 mL an hour. He stable. The patient was to be discharged apparently but now has a fever, and that may be on hold. White count 8.9, hemoglobin 8.2, hematocrit 28.7, and platelet count 537,000. Sodium 140, potassium 3.7, chlorides 100, CO2 34, BUN 12, creatinine 0.7. Urine shows large blood, large leukocyte esterase, 83 RBCs, 65 WBCs, and no bacteria. The patient has been on meropenem, and voriconazole. Objective - Vital Signs Vital signs: Vital Signs Temp 100.6 F H 01/18/22 06:17 Pulse 94 01/18/22 04:00 Resp 18 01/18/22 04:00 BP 109/56 01/18/22 04:00 Pulse Ox 94 L 01/18/22 04:00 FiO2 50 01/12/22 11:26 Intake & Output 01/17/22 01/18/22 01/18/22 18:59 06:59 18:59 Intake Total 628 540 0 Output Total 1175 535 Balance -547 5 0 Weight 86.5 kg 86.5 kg Intake: Oral 628 540 0 Output: Drainage 0 35 Left Hip 0 15 Left Thigh 0 20 Urine 1025 500 Stool 150 Other: Voiding Method Indwelling Catheter Indwelling Catheter - Exam No acute distress, oriented 3. Currently on 94 % room air. HEENT examination is grossly unremarkable. Evidence of previous trauma noted. Neck supple. Full range of motion. No adenopathy thyromegaly or neck vein distention. Cardiovascular examination reveals regular rhythm rate. S1-S2 normal. No S3 or S4. No discernible murmur noted. Heart rate 94 bpm. Lungs reveal crackles at the left base. No rhonchi. No wheezes. Saturations are excellent, at 94 %. Abdomen soft bowel sounds are heard. No masses or tenderness. Extremities reveal patient to be paraplegic. No cyanosis or clubbing. Skin is without rash or lesion. Neurologic examination as above. - Labs CBC & Chem 7: 01/18/22 07:56 01/18/22 07:56 Labs: Abnormal Lab Results - Last 24 Hours (Table) 01/17/22 01/17/22 01/17/22 Range/Units 16:09 16:49 20:05 RBC (4.30-5.90) m/uL Hgb (13.0-17.5) gm/dL Hct (39.0-53.0) % MCH (25.0-35.0) pg MCHC (31.0-37.0) g/dL RDW (11.5-15.5) % Plt Count (150-450) k/uL Carbon Dioxide (22-30) mmol/L Creatinine (0.66-1.25) mg/dL Glucose (74-99) mg/dL POC Glucose (mg/dL) 282 H 220 H (70-110) mg/dL Calcium (8.4-10.2) mg/dL Urine Glucose (UA) 1+ H (Negative) Urine Blood Large H (Negative) Ur Leukocyte Esterase Large H (Negative) Urine RBC 83 H (0-5) /hpf Urine WBC 65 H (0-5) /hpf Urine Mucus Rare H (None) /hpf Urine Yeast (Budding) Few H (None) /hpf 01/18/22 01/18/22 01/18/22 Range/Units 06:17 07:56 07:56 RBC 3.54 L (4.30-5.90) m/uL Hgb 8.2 L (13.0-17.5) gm/dL Hct 28.7 L (39.0-53.0) % MCH 23.2 L (25.0-35.0) pg MCHC 28.5 L (31.0-37.0) g/dL RDW 20.4 H (11.5-15.5) % Plt Count 537 H (150-450) k/uL Carbon Dioxide 34 H (22-30) mmol/L Creatinine 0.47 L (0.66-1.25) mg/dL Glucose 119 H (74-99) mg/dL POC Glucose (mg/dL) 151 H (70-110) mg/dL Calcium 8.2 L (8.4-10.2) mg/dL Urine Glucose (UA) (Negative) Urine Blood (Negative) Ur Leukocyte Esterase (Negative) Urine RBC (0-5) /hpf Urine WBC (0-5) /hpf Urine Mucus (None) /hpf Urine Yeast (Budding) (None) /hpf Microbiology - Last 24 Hours (Table) 01/12/22 23:32 Blood Culture - Preliminary Blood No Growth after 120 hours 01/17/22 16:49 Urine Culture - Preliminary Urine,Voided Assessment and Plan Assessment: Acute hypoxemic respiratory failure, secondary to coronavirus associated pneumonia. History of previous traumatic brain injury and paraplegia. Recent surgery to the left hip, and subsequent post-procedure DVT. History of developmental delay. History of possible aspiration pneumonia. Possible urinary tract infection. Plan: Plan dated 01/14/2022. The patient continues on oxygen. He is on 3 L. Saturations are 99%. Use with aspiration precautions. The patient did complete a full course of REM the patient continues on factor X a inhibitor. The patient also continues on Decadron. The patient is on meropenem, and fluconazole. Additional recommendations and suggestions are forthcoming. PEG tube to be placed. Plan dated 01/15/2022. The patient appears be doing well. Currently on room air. The patient's getting saline at 20 mL an hour. No new labs today other than a blood glucose. We will continue to follow. The patient remains on albuterol inhaler, Decadron, meropenem, and fluconazole. Plan dated 01/16/2022. The patient's currently on room air. The patient continues and albuterol inhaler, a factor X a inhibitor, Decadron, meropenem, and voriconazole as per infectious diseases. We will continue to follow. Prognosis is guarded.No additional recommendations are made. Plan dated 01/17/2022. The patient appears to be doing relatively well. He is on room air. No IV fluids. He did apparently passed his swallow evaluation. Medications are appropriate. We will continue to follow make recommendations along the way. Prognosis is guarded. The patient is currently on voriconazole, meropenem, Decadron, and factor X a inhibitor. Plan dated 01/18/2022. The patient appears very stable. He is on room air. Not receiving any IV fluids. The patient has been on meropenem, and voriconazole. He apparently did develop a fever. The patient is asymptomatic. Labs, x-rays, and medications are all reviewed. We will continue to follow make recommendations along the way. Prognosis is guarded. Time with Patient: Less than 30
--- NOTE | 2022-01-18 16:14 | P.PN ---
Subjective Progress Note Date: 01/18/22 CHIEF COMPLAINT: Dysphagia HISTORY OF PRESENT ILLNESS: Patient is status post EGD with PEG tube placement and esophageal dilation. Results showed a hiatal hernia, gastric polyps, distal esophagitis and esophageal stricture. Patient is tolerating tube feeds. Tube feeds are currently a 65 mL per hour. Patient denies any abdominal pain. Denies any nausea or vomiting. He passed a swallow eval yesterday. He is tolerating Diet. Patient did have a fever of 102 last night. Medical service has started workup on fever. WBC 8.9 Hgb 8.2 potassium 3.7 Patient seen and examined with Dr. Charles PHYSICAL EXAM: VITAL SIGNS: Reviewed. GENERAL: Well-developed in no acute distress. HEENT: No sclera icterus. Extraocular movements grossly intact. Moist buccal mucosa. Head is atraumatic, normocephalic. ABDOMEN: Soft. Nondistended. Nontender. PEG tube site clean dry and intact NEUROLOGIC: Alert and oriented. Cranial nerves II through XII grossly intact. ASSESSMENT: 1. Dysphagia status post PEG tube placement 2. Moderate protein calorie malnutrition 3. Esophageal stricture status post EGD with dilation x 2 4. Hypokalemia resolved PLAN: -Patient started on chopped diet -Tube feeding recommendations per dietitian -Continue supportive care Physician Education Technician note has been reviewed by physician. Signing provider agrees with the documented findings, assessment, and plan of care. Objective - Vital Signs Vital signs: Vital Signs Temp 98.7 F 01/18/22 12:00 Pulse 94 01/18/22 12:00 Resp 18 01/18/22 12:00 BP 110/59 01/18/22 12:00 Pulse Ox 93 L 01/18/22 12:00 FiO2 50 01/12/22 11:26 Intake & Output 01/17/22 01/18/22 01/18/22 18:59 06:59 18:59 Intake Total 628 540 0 Output Total 1175 535 150 Balance -547 5 -150 Weight 86.5 kg 86.5 kg Intake: Oral 628 540 0 Output: Drainage 0 35 0 Left Hip 0 15 0 Left Thigh 0 20 0 Urine 1025 500 Stool 150 150 Other: Voiding Method Indwelling Catheter Indwelling Catheter Indwelling Catheter - Labs CBC & Chem 7: 01/18/22 07:56 01/18/22 07:56 Labs: Abnormal Lab Results - Last 24 Hours (Table) 01/17/22 01/17/22 01/18/22 Range/Units 16:49 20:05 06:17 RBC (4.30-5.90) m/uL Hgb (13.0-17.5) gm/dL Hct (39.0-53.0) % MCH (25.0-35.0) pg MCHC (31.0-37.0) g/dL RDW (11.5-15.5) % Plt Count (150-450) k/uL Carbon Dioxide (22-30) mmol/L Creatinine (0.66-1.25) mg/dL Glucose (74-99) mg/dL POC Glucose (mg/dL) 220 H 151 H (70-110) mg/dL Calcium (8.4-10.2) mg/dL Procalcitonin (0.02-0.09) ng/mL Urine Glucose (UA) 1+ H (Negative) Urine Blood Large H (Negative) Ur Leukocyte Esterase Large H (Negative) Urine RBC 83 H (0-5) /hpf Urine WBC 65 H (0-5) /hpf Urine Mucus Rare H (None) /hpf Urine Yeast (Budding) Few H (None) /hpf 01/18/22 01/18/22 01/18/22 Range/Units 07:56 07:56 07:56 RBC 3.54 L (4.30-5.90) m/uL Hgb 8.2 L (13.0-17.5) gm/dL Hct 28.7 L (39.0-53.0) % MCH 23.2 L (25.0-35.0) pg MCHC 28.5 L (31.0-37.0) g/dL RDW 20.4 H (11.5-15.5) % Plt Count 537 H (150-450) k/uL Carbon Dioxide 34 H (22-30) mmol/L Creatinine 0.47 L (0.66-1.25) mg/dL Glucose 119 H (74-99) mg/dL POC Glucose (mg/dL) (70-110) mg/dL Calcium 8.2 L (8.4-10.2) mg/dL Procalcitonin 42.90 H (0.02-0.09) ng/mL Urine Glucose (UA) (Negative) Urine Blood (Negative) Ur Leukocyte Esterase (Negative) Urine RBC (0-5) /hpf Urine WBC (0-5) /hpf Urine Mucus (None) /hpf Urine Yeast (Budding) (None) /hpf Microbiology - Last 24 Hours (Table) 01/12/22 23:32 Blood Culture - Preliminary Blood No Growth after 120 hours 01/17/22 16:49 Urine Culture - Preliminary Urine,Voided
[2022-01-18 17:07] LABS: Glucose,Whole Blood 304 mg/dL (70-110)
[2022-01-18 19:44] LABS: Glucose,Whole Blood 233 mg/dL (70-110)
[2022-01-18] MEDS: ATORVASTATIN 80 MG TAB PEG/G-TUBE SCH (19:58)
[2022-01-18] MEDS: INSULIN DETEMIR (LEVEMIR) 100 UNIT/ML SYR SQ SCH (20:20)
--- NOTE | 2022-01-18 23:00 | P.PN ---
Subjective Progress Note Date: 01/18/22 Principal diagnosis: Fevers/(UTI Patient is a 51 year old male with developmental delay CVA TIA diabetes recent surgery for the left hip muscle flap [facility] and the patient has been on IV meropenem presenting to the hospital for weakness diagnosed with a covid 19 did have a new fever concerning for possible catheter associated urinary tract infection. On today's evaluation that is 01/18/2022, patient did spike a fever of 101F last evening and a low-grade fever of 99.9 this morning patient overall feeling better his breathing comfortably and will be denies any chest pain or shortness of breath or cough no nausea no vomiting no abdominal pain or diarrhea Objective - Vital Signs Vital signs: Vital Signs Temp 97.9 F 01/18/22 20:00 Pulse 95 01/18/22 20:00 Resp 17 01/18/22 20:00 BP 128/63 01/18/22 20:00 Pulse Ox 97 01/18/22 20:00 FiO2 50 01/12/22 11:26 Intake & Output 01/18/22 01/18/22 01/19/22 06:59 18:59 06:59 Intake Total 540 0 Output Total 535 2313 1100 Balance 5 -2313 -1100 Weight 86.5 kg 86.5 kg Intake: Oral 540 0 Output: Drainage 35 13 0 Left Hip 15 3 0 Left Thigh 20 10 0 Urine 500 2000 1100 Stool 300 Other: Voiding Method Indwelling Catheter Indwelling Catheter Indwelling Catheter # Bowel Movements 1 - Exam GENERAL DESCRIPTION: Middle-aged male lying in bed in no distress RESPIRATORY SYSTEM: Unlabored breathing , decreased breath sounds at bases HEART: S1 S2 regular rate and rhythm , ABDOMEN: Soft , no tenderness EXTREMITIES: No edema feet - Labs CBC & Chem 7: 01/18/22 07:56 01/18/22 07:56 Labs: Abnormal Lab Results - Last 24 Hours (Table) 01/18/22 01/18/22 01/18/22 Range/Units 06:17 07:56 07:56 RBC 3.54 L (4.30-5.90) m/uL Hgb 8.2 L (13.0-17.5) gm/dL Hct 28.7 L (39.0-53.0) % MCH 23.2 L (25.0-35.0) pg MCHC 28.5 L (31.0-37.0) g/dL RDW 20.4 H (11.5-15.5) % Plt Count 537 H (150-450) k/uL Carbon Dioxide 34 H (22-30) mmol/L Creatinine 0.47 L (0.66-1.25) mg/dL Glucose 119 H (74-99) mg/dL POC Glucose (mg/dL) 151 H (70-110) mg/dL Calcium 8.2 L (8.4-10.2) mg/dL Procalcitonin (0.02-0.09) ng/mL 01/18/22 01/18/22 01/18/22 Range/Units 07:56 17:03 19:43 RBC (4.30-5.90) m/uL Hgb (13.0-17.5) gm/dL Hct (39.0-53.0) % MCH (25.0-35.0) pg MCHC (31.0-37.0) g/dL RDW (11.5-15.5) % Plt Count (150-450) k/uL Carbon Dioxide (22-30) mmol/L Creatinine (0.66-1.25) mg/dL Glucose (74-99) mg/dL POC Glucose (mg/dL) 304 H 233 H (70-110) mg/dL Calcium (8.4-10.2) mg/dL Procalcitonin 42.90 H (0.02-0.09) ng/mL Microbiology - Last 24 Hours (Table) 01/17/22 17:43 Blood Culture - Preliminary Blood No Growth after 24 hours 01/17/22 17:04 Blood Culture - Preliminary Blood No Growth after 24 hours 01/12/22 23:32 Blood Culture - Preliminary Blood No Growth after 120 hours 01/17/22 16:49 Urine Culture - Preliminary Urine,Voided Assessment and Plan (1) Urinary tract infection Current Visit: Yes Status: Acute Code(s): N39.0 - URINARY TRACT INFECTION, SITE NOT SPECIFIED SNOMED Code(s): 03816987 Plan: 1patient with sepsis in this patient with a fever elevated white count could be related to catheter associated tract infection in this patient with a chronic indwelling Robins catheter and did have significant positive UA with evidence of yeast. 2patient also have a infection to the left hip area this patient with recent muscle flap surgery and is getting meropenem 3patient with a covid19 infection overall respiratory status seems to be stable and improving pain no worsening pneumonia reported on the chest x-ray on 01/12/2022 4 patient with catheter associated UTI , Urine culture currently showing Sherron glabrata, pt to continue with voriconazole for about 5 days to finish course of therapy 5patient with a new fever patient did have a negative influenza and RSV PCR the patient did have a positive DVT on the ultrasound could be contributing to his fever as the patient currently does not look toxic and white count is normal Time with Patient: Less than 30
[2022-01-19] MEDS: ACETAMINOPHEN TAB 325 MG TAB PEG/G-TUBE PRN
[2022-01-19 04:40] VITALS: RESP 18
[2022-01-19] MEDS: SENNOSIDES 8.6 MG TAB PEG/G-TUBE SCH ×3 (04:53→17:49)
[2022-01-19 05:48] LABS: Glucose,Whole Blood 154 mg/dL (70-110)
[2022-01-19] MEDS: INSULIN ASPART (NovoLOG) 100 UNIT/ML VIAL SQ SCH ×3 (06:24→17:49)
[2022-01-19] MEDS: ALBUTEROL HFA INHALER INHALATION SCH ×3 (09:09→15:35)
[2022-01-19] MEDS: polyethylene glycoL 3350 17 GM POWD.PACK PEG/G-TUBE SCH (09:14)
[2022-01-19] MEDS: PANTOPRAZOLE 40 MG/10 ML VIAL IVP SCH (09:14)
[2022-01-19] MEDS: GABAPENTIN 300 MG CAP PO SCH ×2 (09:14→17:48)
[2022-01-19] MEDS: MEROPENEM 1 GM in SODIUM CHLORIDE 0.9% 100 ML IVPB SCH ×2 (09:14→17:48)
[2022-01-19] MEDS: VORICONAZOLE 200 MG TAB PO SCH (09:15)
[2022-01-19] MEDS: APIXABAN 5 MG TAB PO SCH (09:15)
[2022-01-19] MEDS: lamoTRIgine 100 MG TAB PEG/G-TUBE SCH (09:15)
[2022-01-19] MEDS: MULTIVITAMINS, THERA LIQUID 237 ML BOTTLE PEG/G-TUBE SCH (09:17)
--- NOTE | 2022-01-19 10:58 | P.PN ---
Progress Note - Text Progress Note Date: 01/19/22 Patient [place] stable. Apparently is tolerating his chopped diet. Abdomen soft. Patient will resume tube feeds per dietitian's recommendation.
--- NOTE | 2022-01-19 11:01 | P.DS ---
Providers Date of admission: 01/06/22 23:39 Expected date of discharge: 01/19/22 Attending physician: Melody Bal MD Consults: 01/06/22 23:39 Consult Physician Urgent Consulting Provider: Talita Shannon Consult Reason/Comments: hypoxic resp failure, covid pna Do you want consulting provider notified?: Yes 01/09/22 17:49 Consult Physician Routine Consulting Provider: Fitz Moser Consult Reason/Comments: PEG tube placement Do you want consulting provider notified?: Yes 01/13/22 10:45 Consult Physician Routine Consulting Provider: Reynaldo Cisneros Consult Reason/Comments: id Do you want consulting provider notified?: Yes 01/14/22 01:06 Consult Physician Urgent Consulting Provider: John García Consult Reason/Comments: hematuria, retention, neurogentic bladder Do you want consulting provider notified?: Yes Primary care physician: Aleks Moya Hospital Course: Discharge Diagnosis: Acute hypoxic respiratory failure Acute COVID-19 pneumonia Hypokalemia Provoked acute DVT Febrile Normocytic anemia Recent history of left hip skin/muscle surgery with infection Leukocytosis Dysphagia Neurogenic bladder Chronic urinary retention, Robins present on admission Sherron UTI Mild hypernatremia History of TBI Hospital Course: 51-year-old male with history of CVA/TIA, intellectual disability, TBI, diabetes, dyslipidemia, depression, recent DVT provoked on Eliquis presenting with shortness of breath. Treated for hypoxic respiratory failure secondary to COVID-19 pneumonia with Remdesivir and steroids. On room air at discharge. Patient was recently hospitalized at [facility] for left hip skin/muscle flap reconstruction, infected, on meropenem, continued. During that hospitalization he developed a DVT, was on Eliquis. Patient has severe dysphagia and esophageal strictures. He underwent EGD with dilation on 12/13. Had a repeat EGD and PEG tube placed on 01/14. Patient did eventually pass his swallow eval, able to tolerate oral food. He will still get some PEG tube feeds to meet his nutritional goal at home. Pulmonology and infectious disease also following. Urology also consulted for neurogenic bladder and urinary retention, no i nterventions planned. UA showed Sherron UTI. Patient started on antifungal. Patient also had low-grade fevers prior to discharge, repeat lower extremity Doppler showed possibly acute DVT in the left leg. This is possible as anticoagulation was held for PEG tube placement. Patient to discharge home with home care services. Patient seen and examined at bedside. Vital signs reviewed and stable. General: non toxic, no distress, appears at stated age Derm: warm, dry Head: History of prior trauma, symmetric Eyes: EOMI, no lid lag, anicteric sclera, left eye shut Mouth: no lip lesion, mucus membranes moist Cardiovascular: S1S2 reg, no murmur, Lungs: Clear to auscultation bilaterally, room air Abdominal: soft, nontender to palpation, no guarding, no appreciable organomegaly, left-sided ostomy bag, PEG tube site clean and dry Ext: no gross muscle atrophy, no edema, no contractures, flaccid paralysis of left lower extremity, has 2 drains on the left side Neuro: CN II-XI grossly intact, no focal neuro deficits Psych: Alert, oriented, appropriate affect A total of 50 minutes of time were spent preparing this complex discharge summary. Patient was discharged on 01/19/22 at 9:43. Patient Condition at Discharge: Stable Plan - Discharge Summary Discharge Rx Participant: No New Discharge Prescriptions: New polyethylene glycoL 3350 [Miralax] 17 gm PO BID #30 packet Sennosides [Senokot] 8.6 mg PO DAILY #30 tab Acetaminophen Tab [Tylenol] 650 mg PO Q6HR PRN #60 tab PRN Reason: Mild Pain Or Fever > 100.5 Meropenem [Merrem] 1 gm IVPB Q8HR each Ibuprofen [Motrin] 400 mg PO Q6HR PRN #30 tab PRN Reason: Mild Pain Or Fever > 100.5 Voriconazole [Vfend] 200 mg PO Q12HR #4 tab Continue Ferrous Sulfate [Iron (65 MG Elemental)] 325 mg PO DAILY Apixaban [Eliquis] 5 mg PO BID Pantoprazole [Protonix] 40 mg PO BID Multivitamins, Thera [Multivitamin (formulary)] 1 tab PO DAILY Atorvastatin [Lipitor] 80 mg PO HS lamoTRIgine [LaMICtal] 150 mg PO DAILY Cholecalciferol (Vitamin D3) [Vitamin D3 (125 MCG = 5,000 IU)] 125 mcg PO DAILY Ascorbic Acid [Vitamin C] 250 mg PO DAILY Pyridoxine HCl (Vitamin B6) [Vitamin B-6] 100 mg PO DAILY Insulin Glargine,Hum.rec.anlog [Lantus Solostar Pen] 8 units SQ HS modafiniL [Provigil] 200 mg PO BID Gabapentin 600 mg PO TID Discontinued Sennosides [Senokot] 8.6 mg PO 5XD Docusate [Colace] 100 mg PO BID Solifenacin Succinate [Vesicare] 10 mg PO DAILY Metaxalone [Skelaxin] 400 mg PO BID amantadine HCL [Amantadine] 100 mg PO BID Meloxicam [Mobic] 15 mg PO DAILY Co Q-10 30mg 1 cap PO DAILY Meropenem [Merrem] 1 gm IV TID tiZANidine [Zanaflex] 4 mg PO BID Prucalopride Succinate [Motegrity] 2 mg PO DAILY Fluconazole [Diflucan] 200 mg PO DAILY polyethylene glycoL 3350 [Miralax] 17 gm PO BID Potassium Chloride Oral Liquid 10 meq PO DAILY Baclofen 10 - 20 mg PO QID PRN PRN Reason: Muscle Spasm Alendronate Sodium 70 mg PO SA Discharge Medication List Apixaban [Eliquis] 5 mg PO BID 01/07/22 [History] Ascorbic Acid [Vitamin C] 250 mg PO DAILY 01/07/22 [History] Atorvastatin [Lipitor] 80 mg PO HS 01/07/22 [History] Cholecalciferol (Vitamin D3) [Vitamin D3 (125 MCG = 5,000 IU)] 125 mcg PO DAILY 01/07/22 [History] Ferrous Sulfate [Iron (65 MG Elemental)] 325 mg PO DAILY 01/07/22 [History] Gabapentin 600 mg PO TID 01/07/22 [History] Insulin Glargine,Hum.rec.anlog [Lantus Solostar Pen] 8 units SQ HS 01/07/22 [History] Multivitamins, Thera [Multivitamin (formulary)] 1 tab PO DAILY 01/07/22 [History] Pantoprazole [Protonix] 40 mg PO BID 01/07/22 [History] Pyridoxine HCl (Vitamin B6) [Vitamin B-6] 100 mg PO DAILY 01/07/22 [History] lamoTRIgine [LaMICtal] 150 mg PO DAILY 01/07/22 [History] modafiniL [Provigil] 200 mg PO BID 01/07/22 [History] Acetaminophen Tab [Tylenol] 650 mg PO Q6HR PRN #60 tab 01/19/22 [Rx] Ibuprofen [Motrin] 400 mg PO Q6HR PRN #30 tab 01/19/22 [Rx] Meropenem [Merrem] 1 gm IVPB Q8HR each 01/19/22 [Rx] Sennosides [Senokot] 8.6 mg PO DAILY #30 tab 01/19/22 [Rx] Voriconazole [Vfend] 200 mg PO Q12HR #4 tab 01/19/22 [Rx] polyethylene glycoL 3350 [Miralax] 17 gm PO BID #30 packet 01/19/22 [Rx] Follow up Appointment(s)/Referral(s): Aleks Moya MD [Primary Care Provider] - 1-2 days [facility], [NON-STAFF] - [facility], [REFERRING] - [facility] [NON-STAFF] - 1 Week Patient Instructions/Handouts: COVID-19 (Coronavirus Disease 2019) (DC) Activity/Diet/Wound Care/Special Instructions: Prior to discharge contact [facility] - [phone] and [facility] [phone] to be sure they can deliver tube feeding and supplies and have a nurse see patient for teaching Diet: Strict NPO - Tube feeding - Glucerna 1.2 (or equivalent) at 65mL/hr; Free water flush 30 mL every 4 hours. All medications through PEG tube Discharge Disposition: HOME WITH HOME HEALTH SERVICES
[2022-01-19 12:10] LABS: Glucose,Whole Blood 142 mg/dL (70-110)
--- NOTE | 2022-01-19 16:10 | P.PN ---
Subjective Progress Note Date: 01/19/22 Principal diagnosis: Fevers/(UTI Patient is a 51 year old male with developmental delay CVA TIA diabetes recent surgery for the left hip muscle flap [facility] and the patient has been on IV meropenem presenting to the hospital for weakness diagnosed with a covid 19 did have a new fever concerning for possible catheter associated urinary tract infection. On today's evaluation that is 01/19/2022, patient fever pattern has improved did have a low-grade fever 100.2 last night however the patient is afebrile this morning patient overall feeling better his breathing comfortably on room air the patient denies having any chest pain shortness of breath or cough no abdominal pain and no diarrhea has been reported by the nursing staff Objective - Vital Signs Vital signs: Vital Signs Temp 98.2 F 01/19/22 04:00 Pulse 96 01/19/22 08:00 Resp 18 01/19/22 08:00 BP 121/62 01/19/22 04:00 Pulse Ox 99 01/19/22 04:00 FiO2 50 01/12/22 11:26 Intake & Output 01/18/22 01/19/22 01/19/22 18:59 06:59 18:59 Intake Total 0 2259 Output Total 2313 2500 150 Balance -2313 -2500 2109 Weight 86.5 kg 82 kg 82 kg Intake: Oral 0 600 Tube Feeding 1659 Output: Drainage 13 0 0 Left Hip 3 0 0 Left Thigh 10 0 0 Urine 2000 2500 Stool 300 150 Other: Voiding Method Indwelling Catheter Indwelling Catheter Indwelling Catheter # Bowel Movements 1 - Exam GENERAL DESCRIPTION: Middle-aged male lying in bed in no distress RESPIRATORY SYSTEM: Unlabored breathing , decreased breath sounds at bases HEART: S1 S2 regular rate and rhythm , ABDOMEN: Soft , no tenderness EXTREMITIES: No edema feet - Labs CBC & Chem 7: 01/18/22 07:56 01/18/22 07:56 Labs: Abnormal Lab Results - Last 24 Hours (Table) 01/18/22 01/18/22 01/19/22 Range/Units 17:03 19:43 05:47 POC Glucose (mg/dL) 304 H 233 H 154 H (70-110) mg/dL 01/19/22 Range/Units 11:52 POC Glucose (mg/dL) 142 H (70-110) mg/dL Microbiology - Last 24 Hours (Table) 01/12/22 23:32 Blood Culture - Final Blood No Growth after 144 hours 01/17/22 16:49 Urine Culture - Final Urine,Voided 01/17/22 17:43 Blood Culture - Preliminary Blood No Growth after 24 hours 01/17/22 17:04 Blood Culture - Preliminary Blood No Growth after 24 hours Assessment and Plan (1) Urinary tract infection Current Visit: Yes Status: Acute Code(s): N39.0 - URINARY TRACT INFECTION, SITE NOT SPECIFIED SNOMED Code(s): 60793119 Plan: 1patient with sepsis in this patient with a fever elevated white count could be related to catheter associated tract infection in this patient with a chronic indwelling Robins catheter and did have significant positive UA with evidence of yeast. 2patient also have a infection to the left hip area this patient with recent muscle flap surgery and is getting meropenem , patient apparently was supposed to complete his IV meropenem as of 01/09/2022 patient apparently has received more than adequate meropenem and he can be discontinued on discharge discussed with the nursing staff was working on the discharge, patient to follow with his [facility] physician after discharge 3patient with a covid19 infection overall respiratory status seems to be stable and improving pain no worsening pneumonia reported on the chest x-ray on 01/12/2022 4 patient with catheter associated UTI , Urine culture currently showing Sherron glabrata, pt to continue with voriconazole for about 3 days on discharge to finish course of therapy Time with Patient: Less than 30
[2022-01-19 17:08] LABS: Glucose,Whole Blood 144 mg/dL (70-110)
[2022-01-19 18:24] VITALS: BP 104/60; PULSE 98; TEMP 98.1
--- NOTE | 2022-01-21 20:11 | CDI ---
Documentation Clarification Form Date: 01/21/2022 07:46:09 PM From: Laura Nur Phone: Admit Date: 01/06/2022 11:39:00 PM Patient Name: Dex Mckeon Visit Number: [id number] Discharge Date: 01/19/2022 06:42:00 PM ATTENTION: The Clinical Documentation Specialists (CDI) and [facility] Coding Staff appreciate your assistance in clarifying documentation. Please respond to the clarification below the line at the bottom and electronically sign. The CDI & [facility] Coding staff will review the response and follow-up if needed. Please note: Queries are made part of the Legal Health Record. If you have any questions, please contact the author of this message via ITS. Dr. Dread Starkey Normocytic anemia is documented per Dr. Dread Restrepo Progress Note 01/17/22. Additional specificity regarding the type and acuity of anemia is requested. History/Risk Factors: 39yo M, AHRF, COVID-19 PNA, DMII, Hypokalemia, LLE acute DVT, Mod PCM sp PEG, anemia, Dysphagia, Neurogenic bladder, urinary retention chronic w Robins w Sherron UTI, hypernatremia, Hx TBI, gross hematuria, paraplegia, multi pressure ulcers on back and BLE; recent left hip skin/muscle flap/reconstruction w DVT Clinical indicators: Hemoglobin: 9.6 01/07 8.1 01/11 9.7 01/14 8.7 01/17 8.2 01/18 Hematocrit: 31.5 01/07 28.7 01/11 33.1 01/14 27.9 01/17 28.7 01/18 Treatment: anticoagulation was held for PEG tube placement. Patient to discharge home with home care services. Please clarify the type and acuity of anemia: [ ] Chronic blood loss anemia [ ] Nutritional anemia [x ] Unable to determine [ ] Other, please specify (Template Last Revised: March 2020) MTDD
== END 2022-01-19 18:42 | disposition home health service (06) | DRG 177 ==
LOC: EC 22:53 → 3SCARD 23:39
PROVIDERS: ADMIT Internal Medicine; ATTEND Internal Medicine
PROC: 3E0333Z Introduction of Anti-inflammatory into Peripheral Vein, Percutaneous Approach (ICD-10-PCS; 2022-01-06)
PROC: 5A0945A Assistance with Respiratory Ventilation, 24-96 Consecutive Hours, High Flow/Velocity Cannula (ICD-10-PCS; 2022-01-06)
PROC: XW033E5 Introduction of Remdesivir Anti-infective into Peripheral Vein, Percutaneous Approach, New Technology Group 5 (ICD-10-PCS; 2022-01-07)
PROC: 5A09357 Assistance with Respiratory Ventilation, Less than 24 Consecutive Hours, Continuous Positive Airway Pressure (ICD-10-PCS; 2022-01-07)
PROC: 0D728ZZ Dilation of Middle Esophagus, Via Natural or Artificial Opening Endoscopic (ICD-10-PCS; principal; 2022-01-11 14:30)
PROC: 0DB48ZX Excision of Esophagogastric Junction, Via Natural or Artificial Opening Endoscopic, Diagnostic (ICD-10-PCS; 2022-01-14)
PROC: 0DB68ZX Excision of Stomach, Via Natural or Artificial Opening Endoscopic, Diagnostic (ICD-10-PCS; 2022-01-14)
PROC: 0DH63UZ Insertion of Feeding Device into Stomach, Percutaneous Approach (ICD-10-PCS; 2022-01-14 07:30)
PROC: 3E0G76Z Introduction of Nutritional Substance into Upper GI, Via Natural or Artificial Opening (ICD-10-PCS; 2022-01-14 07:30)
DX: U07.1 COVID-19 (principal); B37.7 Candidal sepsis; J12.82 Pneumonia due to coronavirus disease 2019; L89.213 Pressure ulcer of right hip, stage 3; J69.0 Pneumonitis due to inhalation of food and vomit; J96.01 Acute respiratory failure with hypoxia; E44.0 Moderate protein-calorie malnutrition; G82.20 Paraplegia, unspecified; M48.54XA Collapsed vertebra, not elsewhere classified, thoracic region, initial encounter for fracture; L97.122 Non-pressure chronic ulcer of left thigh with fat layer exposed; T83.510A Infection and inflammatory reaction due to cystostomy catheter, initial encounter; E87.0 Hyperosmolality and hypernatremia; I82.412 Acute embolism and thrombosis of left femoral vein; B37.49 Other urogenital candidiasis; E11.622 Type 2 diabetes mellitus with other skin ulcer; Z68.30 Body mass index [BMI] 30.0-30.9, adult; G40.909 Epilepsy, unspecified, not intractable, without status epilepticus; I10 Essential (primary) hypertension; F32.A Depression, unspecified; D64.9 Anemia, unspecified; K22.2 Esophageal obstruction; L89.312 Pressure ulcer of right buttock, stage 2; L89.892 Pressure ulcer of other site, stage 2; T17.928A Food in respiratory tract, part unspecified causing other injury, initial encounter; K44.9 Diaphragmatic hernia without obstruction or gangrene; H54.61 Unqualified visual loss, right eye, normal vision left eye; R91.1 Solitary pulmonary nodule; E78.5 Hyperlipidemia, unspecified; H91.91 Unspecified hearing loss, right ear; Y73.1 Therapeutic (nonsurgical) and rehabilitative gastroenterology and urology devices associated with adverse incidents; G47.33 Obstructive sleep apnea (adult) (pediatric); K31.7 Polyp of stomach and duodenum; R62.50 Unspecified lack of expected normal physiological development in childhood; E87.6 Hypokalemia; R31.0 Gross hematuria; N31.9 Neuromuscular dysfunction of bladder, unspecified; F79 Unspecified intellectual disabilities; K21.00 Gastro-esophageal reflux disease with esophagitis, without bleeding; R33.8 Other retention of urine; T38.0X5A Adverse effect of glucocorticoids and synthetic analogues, initial encounter; D72.828 Other elevated white blood cell count; Z96.7 Presence of other bone and tendon implants; Z91.040 Latex allergy status; Z86.718 Personal history of other venous thrombosis and embolism; Z79.899 Other long term (current) drug therapy; Z79.01 Long term (current) use of anticoagulants; Z79.4 Long term (current) use of insulin; Z79.1 Long term (current) use of non-steroidal anti-inflammatories (NSAID); Z88.1 Allergy status to other antibiotic agents; Z88.8 Allergy status to other drugs, medicaments and biological substances; Z88.0 Allergy status to penicillin; Z86.19 Personal history of other infectious and parasitic diseases; Z86.73 Personal history of transient ischemic attack (TIA), and cerebral infarction without residual deficits; Z87.820 Personal history of traumatic brain injury; Z87.39 Personal history of other diseases of the musculoskeletal system and connective tissue; Z93.3 Colostomy status
CPT/HCPCS: 43220; 43239; 43246; 43249; 71045; 72170; 74230; 76857; 80048; 80053; 81001; 82728; 83615; 83735; 83880; 84100; 84145; 84484; 85025; 85027; 85379; 85384; 85610; 86140; 87040; 87086; 87502; 87634; 88305; 93005; 93970; 94640; 94660; 94760; 96365; 96366; 96375; 99285